=== PATIENT | female | born 1935 | race Caucasian/White ===

== ENCOUNTER 2020-09-11 14:31 | Outpatient (RCR) | payer MEDICARE, SELFPAY ==
[2020-09-11 15:12] VITALS: BP 140/67; PULSE 68; RESP 16; TEMP 36.2
[2020-09-11 17:11] LABS: Absolute Lymphocyte Count 0.79 X10^3/uL (0.83-4.51); Absolute Neutrophil Count 6.2 X10^3/uL (2.0-7.7); Basophil# 0.02 X10^3/uL; Basophil% 0.2 % (0-1); Eosinophil# 0.21 X10^3/uL; Eosinophils% 2.5 % (0-5); Hematocrit 34.4 % (37-47); Hemoglobin 11.2 g/dL (12.0-15.0); Lymphocyte # 0.79 X10^3/ul (0.83-4.51); Lymphocyte % 9.5 % (19-41); Mean Corp Hgb Conc 32.6 g/dL (32-36); Mean Corpuscular Hgb 31.3 pg (27.0-32.0); Mean Corpuscular Volume 96.1 fL (81-99); Monocyte# 1.04 X10^3/uL; Monocyte% 12.6 % (0-10); NRBC Flagged by Analyzer 0 % (0-5); Neutrophil # 6.19 X10^3/uL (2.7-7.7); Neutrophil % 74.8 % (47-70); Platelet Count 460 K/mm3 (150-450); RBC Distribution Width CV 15.2 % (11.6-14.6); RBC Distribution Width SD 54.1 fl (35.1-43.9); Red Blood Count 3.58 M/mm3 (4.2-5.4); White Blood Count 8.3 K/mm3 (4.4-11.0)
[2020-09-11 17:28] LABS: Erythrocyte Sedimentation Rate 121 mm/hr (0-30)
--- NOTE | 2020-09-11 18:01 | PN.PCM_ITS ---
History of Present Illness Date of Service: 09/11/20 Chief Complaint: Hematoma of the Left lateral thigh with opening in the skin. Subjective Subjective Gena is an 85 YO female who fell approximately 1 month ago and sustained a fracture if the R proximal humerus. There was no surgery done and she was placed in a sling. she was then transferred to [facility] for PT/OT to return her at or near her prior level of function/independence. She was independent and living by herself prior to the fall. She was discharged from [facility] 1 day ago and she is living with her daughter until the bone is healed and she can return home. She had a large hematoma on the lateral R thigh that apparently was present since the original fall. Apparently she did tell anyone at [facility] about the large bruise/hematoma and is has since broken open and now there is a black hard eschar and a few smaller openings that are covered with slough in about the middle of a large hard hematoma. The area of the hematoma is numb now. She tells me that she had a fever at [facility] prior to NH and thinks it was as high as 100.1. Past medical history is significant for chronic fatigue, generalized muscle weakness, atrial fibrillation, bradycardia, coronary artery disease, nonrheumatic aortic valve stenosis, orthostatic hypotension, chronic kidney disease stage III, vitamin D deficiency, hypertension, left ventricular failure, gout, osteoarthritis, fibromyalgia, chronic anticoagulation with Eliquis and prediabetes. She has refused medication for diabetes because a friend of hers was on pills for diabetes and years later developed problems with her kidneys. She denies any hx of CHF. She sees Dr. Carrington in [place] for Cardiology. Her med list includes both Lasix and HCTZ yet her ankles are very swollen. She told me that this is gout however there is no redness of the skin, no warmth to touch and she only has pain when I I squeeze the ankle and not when the skin is stroked. She has superficial varicosities of both LE's and tells me that she had vein stripping on the R leg many years ago. She denies orthopnea and also denies paroxysmal nocturnal dyspnea. She usually sleeps on 1 pillow. Last night she slept in the recliner. She denies a hx of rheumatic fever and knows that she has a MM. She tells me that her weight went up when she was in the hospital. She normally weighs 191 and in the hospital she weighed 212. It came down to 204 in [facility] but, she has not weighed herself since she was discharged from [facility]. She was not weighed at the wound care center today. She is currently afebrile. Her dtr-in-law Lexii tells me that she had to have 2 blood transfusions recently....possibly secondary to blood loss into the hematoma......she was on Eliquis at the time of the fall. She also had extensive bruising of the RUE. Objective Data Objective Data Vital Signs: Vital Signs Temp Pulse Resp BP 97.2 F L 68 16 140/67 H 09/11/20 15:12 09/11/20 15:12 09/11/20 15:12 09/11/20 15:12 Lab / Micro Data Result Diagrams: 09/11/20 16:29 09/11/20 16:29 Labs: Laboratory Results - last 24 hr 09/11/20 16:29 WBC 8.3 RBC 3.58 L Hgb 11.2 L Hct 34.4 L MCV 96.1 MCH 31.3 MCHC 32.6 RDW Std Deviation 54.1 H RDW Coeff of Mily 15.2 H Plt Count 460 H MPV 9.0 Immature Gran % (Auto) 0.400 Neut % (Auto) 74.8 H Lymph % (Auto) 9.5 L [place] % (Auto) 12.6 H Eos % (Auto) 2.5 Baso % (Auto) 0.2 Absolute Neuts (auto) 6.2 Absolute Lymphs (auto) 0.79 L Nucleated RBC % 0 ESR 121 H Physical Exam Const alert, oriented x3, no apparent distress and well nourished General Appearance: cooperative and well developed HEENT normocephalic Head and Scalp: atraumatic Mouth: dry mucous membranes Neck supple and no JVD Neck Narrative: She has a R carotid bruit vs radiation of the MM on the R. Resp normal respiratory effort, no use of accessory muscles and clear to auscultation bilaterally Resp Narrative: very good air exchange Effort and Inspection: able to speak in complete sentences Cardio no gallops Cardio Narrative: She is in AF and the HR is in the 80's as I am listening to her. It was 68 when the nurse checked her in. 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 It does not radiate into the left axillary area. Heart Sounds: murmur GI non-tender and non-distended Palpation: soft Extremity Extremity Narrative: She has pitting edema of both LE's but, no clubbing and no cyanosis. Peripheral pulses are normal. She has superficial varicosities of both LE's. She denies calf pain. there is a very large hematoma present on the R lateral thigh and there is still bruising present. The area has broken open and she now has a hard black eschar in the center and a few smaller areas of slough that appear as though they are headed to forming eschar. She has numbness over the area of the hematoma but, she has intact sensation on the anterior and medial thigh. There is increased warmth to touch. The RUE is in a sling due to R humeral fracture. Skin Skin Narrative: no rashes Neuro CN's II-XII intact bilaterally Neuro Narrative: no focal neurologic deficits other than the numbness where the hematoma is. Motor Exam: general weakness Psych affect normal Appearance: grossly normal and well kempt Thought Process: normal thought process Thought Content: No suicidality and No homicidality Debridement Note Debridement Note Post-Debridement Measurements and Additional Note: Post-Debridement Measurements/Treatment - Nurse 1 - General Ulcer Assessment Start: 09/11/20 15:12 Freq: Status: Active Protocol: WC.LOWCHRISTINET Activity Type Activity Date Activity User E-Sign Co-Sign Detail Recorded Client Recorded Date Recorded By Document 09/11/20 15:12 [email or web address] [id number] 09/11/20 15:17 EDMUND 09/11/20 15:12 - Today's Visit Information Type of service Initial Visit Arrival Mode Wheelchair Transfer Assistance Manual Patient Identification Verified (Name & Yes ) Patient Requires Transmission-Based No Precautions Safety Precautions NA Vital Signs Temperature (97.8 F-99.1 F) 97.2 F L Temperature Source Temporal Pulse Rate (60-100) 68 Respiratory Rate (12-18) 16 Blood Pressure (90/60-120/80) 140/67 H Blood Pressure Mean (mm Hg) 91 History Since Last Visit- (Skip if this is Patient's initial visit) Have you changed medications since your No last visit? Any new allergies or adverse reactions No Had a fall/change in ADL's that may No increase risk of falls Signs or symptoms of abuse and/or No neglect since last visit Have you been in the hospital since your No last visit? Has dressing in place as prescribed Yes Has compression in place as prescribed N/A Has offloadiing in place as prescribed N/A Experienced any changes in pain level or No management Pain Scale: 0-10 Numeric Is Patient Pain Free? Yes WC - Nurse 1 - General Ulcer Measurement Start: 09/11/20 15:12 Freq: Status: Active Protocol: Activity Type Activity Date Activity User E-Sign Co-Sign Detail Recorded Client Recorded Date Recorded By Document 09/11/20 15:12 PL [id number] 09/11/20 15:17 PL 09/11/20 15:12 Wound Center Nurse 1 #1 Right lat Thigh -Combined with other wound No -Current Size (cm) - Length 4.5 -Current Size (cm) - Width 3.0 -Current Size (cm) - Depth 0.1 -Total Square Cm 13.50 -Date of Last Picture (Recall this 09/11/20 field) -Photo Taken Yes -Epithelialization None Present -Tunneling No -Undermining/Tunneling No -Circular Undermining No -Classification - Thickness Full Thickness without Exposed Support Structure -Exudate Amt Large -Exudate Type Serosanguineous -Wound Margin Thickened -Granulation Amt None Present (0 %) -Slough/Fibrin Yes -Necrosis Amt Large (67-100%) -Necrotic Tissue Type Eschar -Texture (Lou-wound Skin Appearance) No Abnormality -Moisture (Lou-wound Skin Appearance) No Abnormality -Color (Lou-wound Skin Appearance) No Abnormality -Temperature (Lou-wound Skin No Abnormality Appearance) (Pt Warm) -Tenderness on Palpation (Lou-wound No Skin Appearance) -Ulcer Cleansing Rinsed/ Irrigated with Saline -Anesthetic Used 5% Lidocaine Gel WC - Nurse 2 - General Ulcer CM Notes Start: 09/11/20 15:12 Freq: Status: Active Protocol: Activity Type Activity Date Activity User E-Sign Co-Sign Detail Recorded Client Recorded Date Recorded By Document 09/11/20 15:25 MW [id number] 09/11/20 15:43 MW 09/11/20 15:25 Wound Center Nurse 2 -Time 15:29 -Correct Patient Yes -Correct Side, Site, Position Yes -Correct Procedure Yes -Procedure Performed No -Post Debridement (cm) - Length 4.5 -Post Debridement (cm) - Width 3.0 -Post Debridement (cm) - Depth 0.1 -Total Square (Post) (cm) 13.50 -Tunneling No -Undermining/Tunneling No -Circular Undermining No -Wound/Ulcer Outcome Not Healed -Ulcer Cleansing Rinsed/ Irrigated with Saline -Foul Odor after Cleansing No -Bioengineered Tissue No -Bleeding Controlled with NA -Offloading No -Treatment Response Procedure Tolerated Well Pain Scale: 0-10 Numeric Is Patient Pain Free? Yes WC - Nurse 3 - General Ulcer D/C NN Start: 09/11/20 15:12 Freq: Status: Active Protocol: Activity Type Activity Date Activity User E-Sign Co-Sign Detail Recorded Client Recorded Date Recorded By Document 09/11/20 16:14 ML [id number] 09/11/20 16:16 ML 09/11/20 16:14 Wound Care Nurse 3 #1 Right lat Thigh -Ulcer Cleansing Rinsed/ Irrigated with Saline -Other Dressing foam dressing, stocking Left -Other bilateral marilin wraps No debridement was completed: No debridement was completed today Assessment/Plan Assessment/Plan (1) Traumatic hematoma: CODE(S): T14.8XXA - Other injury of unspecified body region, initial encounter (2) Humerus surgical neck fracture: CODE(S): S42.213A - Unspecified displaced fracture of surgical neck of unspecified humerus, initial encounter for closed fracture (3) PAF (paroxysmal atrial fibrillation): CODE(S): I48.0 - Paroxysmal atrial fibrillation (4) Chronic anticoagulation: CODE(S): Z79.01 - intermediate manager (current) use of anticoagulants (5) HTN (hypertension): CODE(S): I10 - Essential (primary) hypertension (6) Glucose intolerance: CODE(S): E74.39 - Other disorders of intestinal carbohydrate absorption (7) CAD (coronary artery disease): CODE(S): I25.10 - Atherosclerotic heart disease of [place] coronary artery without angina pectoris (8) Chronic renal failure, stage 3 (moderate): CODE(S): N18.30 - Chronic kidney disease, stage 3 unspecified (9) Nonrheumatic aortic (valve) stenosis: CODE(S): I35.0 - Nonrheumatic aortic (valve) stenosis (10) Venous insufficiency of both lower extremities: CODE(S): I87.2 - Venous insufficiency (chronic) (peripheral) PLAN: 1. She was scheduled for an appt with Dr. Oh tomorrow after she was seen by uN today while in [facility]. She will need to have the hematoma evacuated. 2. CBC with diff, CMP, BNP, ESR and CRP - will stop at the lab after leaving here today. 3. Told to hold the Eliquis until she sees Dr. Oh as he may be able to schedule surgery this week. 4. Keep her legs elevated. 5. I told he I do not think she has gout in her ankles but I suspect the swelling is due to venous insufficiency. She also has a hx of left ventricular failure and so she could have diastolic CHF. She is on both Lasix and HCTZ? 6. Obtain record from her laboratory tester.
[2020-09-11 18:09] LABS: BNP,B-Type NATRIURETIC PEPTIDE 30.1 pg/mL (0-100)
[2020-09-11 18:10] LABS: ALB/GLOB Ratio 0.7 RATIO (0.9-2.4); AST(SGOT) 28 U/L (15-37); Alanine Aminotransfer ALT/SGPT 18 U/L (13-56); Albumin, Serum 3.1 g/dL (3.2-5.0); Alkaline Phosphatase 146 U/L (45-117); Anion Gap 7 (5-15); BUN 24 mg/dL (7-18); BUN/Creat Ratio 25.1 RATIO (10-20); Calcium,Total 9.4 mg/dL (8.5-10.1); Chloride 98 mmol/L (98-107); Creatinine, Serum 0.96 mg/dL (0.55-1.02); EST Glomerular Filtration Rate 59 mL/min (>60); Est Glom Filt Rate - Afr Amer 72 mL/min (>60); Globulin 4.7 g/dL (2.2-4.2); Glucose 126 mg/dL (74-106); Potassium 2.8 mmol/L (3.5-5.1); Protein, Total 7.8 g/dL (6.4-8.2); Sodium Level 134 mmol/L (136-145)
== END 2020-10-06 23:59 ==
LOC: WC 14:31
PROVIDERS: PCP Family Medicine; Visit Provider Internal Medicine
DX: S71.101S Unspecified open wound, right thigh, sequela (principal); S70.11XS Contusion of right thigh, sequela; W19.XXXS Unspecified fall, sequela; I13.0 Hypertensive heart and chronic kidney disease with heart failure and stage 1 through stage 4 chronic kidney disease, or unspecified chronic kidney disease; N18.30 Chronic kidney disease, stage 3 unspecified; I48.0 Paroxysmal atrial fibrillation; I35.0 Nonrheumatic aortic (valve) stenosis; I25.10 Atherosclerotic heart disease of native coronary artery without angina pectoris; I87.2 Venous insufficiency (chronic) (peripheral); R73.03 Prediabetes; R53.82 Chronic fatigue, unspecified; M19.90 Unspecified osteoarthritis, unspecified site; M10.9 Gout, unspecified; M79.7 Fibromyalgia; E55.9 Vitamin D deficiency, unspecified; Z79.01 Long term (current) use of anticoagulants; Z79.899 Other long term (current) drug therapy
CPT/HCPCS: 36415; 80053; 83880; 85025; 85652; 86140; 99203; G0463

== ENCOUNTER 2020-09-11 19:55 | Inpatient (IN) | payer MEDICARE, SELFPAY ==
[2020-09-11 19:38] VITALS: BP 138/50; PULSE 68; RESP 16; TEMP 36.7; O2SAT 98
--- NOTE | 2020-09-11 20:01 | HP.PCM_ITS ---
Documented by User: DELIO Lehman 09/11/20 20:21 HPI - General General Date of Admission: 09/11/20 HPI Narrative ABIGAIL MARTINS, is a 85 F who presents from the wound center for a large hematoma to right thigh. Patient reports that she had been receiving care for a wound to her right thigh but she recently has had increased bleeding and swelling in this area. Patient is on Eliquis chronically for paroxysmal A. fib and aortic valve stenosis. Patient states that she is not in any pain currently but that the area is tender to touch. Patient denies fever, chills, shortness of breath, chest pain, cough, nausea, vomiting. [facility] Medical History (Updated 09/11/20 @ 20:17 by Estefania Forbes) Anemia Atrial fibrillation Chronic renal failure, stage 3 (moderate) Fibromyalgia History of skin cancer Hypertension Nonrheumatic aortic (valve) stenosis Osteoarthritis Venous insufficiency of both lower extremities Vitamin D deficiency Allergy/AdvReac Type Severity Reaction Status Date / Time No Known Allergies Allergy Verified 09/11/20 15:33 Surgical History (Updated 09/11/20 @ 20:25 by Estefania Forbes) History of hemiarthroplasty of right hip Hx of appendectomy Hx of cardiac catheterization Hx of hysterectomy Social History Smoking Status: Never smoker ROS Constitutional Constitutional: Denies anorexia, chills, fatigue, fever(s) or weakness Cardiovascular Cardiovascular: Reports edema and palpitations; Denies chest pain Respiratory/Chest Respiratory/Chest: Denies cough, shortness of breath at rest or shortness of breath with exertion Gastrointestinal Gastrointestinal: Denies abdominal pain, constipation, diarrhea, nausea or vomiting Genitourinary Genitourinary: Denies dysuria Musculoskeletal Musculoskeletal: Reports extremity pain; Denies back pain, joint pain or joint stiffness Integumentary Integumentary: Denies dry skin Neurologic Neurologic: Denies abnormal gait, abnormal speech, confusion or dizziness Psychiatric Psychiatric: Denies anxiety or depression Endocrine Endocrinology: Denies change in body appearance Hematologic/Lymphatic Hematologic/Lymphatic: Reports easy bleeding and easy bruising Vital Signs Vital Signs Vital Signs: 09/11/20 19:38 Temperature 98.1 F Temperature Source Oral Pulse Rate 68 Respiratory Rate 16 Blood Pressure 138/50 H Blood Pressure Mean 79 Blood Pressure Source Monitor Blood Pressure Position Semi-Fowlers Blood Pressure Location Left Arm Pulse Ox 98 Oxygen Delivery Method Room Air Physical Exam Const alert and oriented x3 General Appearance: cooperative HEENT normocephalic and head/scalp atraumatic Eyes conjunctivae normal and no scleral icterus Neck supple and no JVD General: trachea midline Lymph Lymphatic: no lymphadenopathy noted Resp normal respiratory effort, normal air movement and clear to auscultation bilaterally Cardio regular rate, regular rhythm, S1 normal heart sound and S2 normal heart sound GI normal to inspection, nondistended, normoactive bowel sounds, soft to palpation and non-tender Extremity normal capillary refill and no clubbing, cyanosis or edema General Extremity: no tenderness to palpation of joints or extremities Skin Wounds: wounds noted bed other eschar , drainage bloody and surrounding erythema Neuro no focal motor deficits and no sensory deficits noted Speech: speech normal Motor Exam: strength 5/5 throughout and general weakness Psych thought process normal, cooperative and affect normal Appearance: appropriate Results Lab / Micro Data Result Diagrams: 09/11/20 20:10 09/11/20 20:10 Assessment & Plan Assessment/Plan (1) Traumatic hematoma: PLAN: 1. Traumatic hematoma -Admit to [facility] -Consult Dr. Oh for surgical consultation -Wound nurse consulted -N.p.o. at midnight pending surgical evaluation 2. Hyponatremia -Likely secondary to use of diuretics despite patient being on potassium replacement chronically -Potassium chloride 60 mEq p.o. x1 ordered in addition to patient home dose. -CMP ordered for a.m., trend potassium 3. Paroxysmal A. fib -Hold Eliquis at this time due to large hematoma and pending surgery -We will obtain EKG for baseline 4. Hypertension -Continue home medication regimen of Lasix and hydrochlorothiazide. -Monitor patient intake and output 5. Venous insufficiency -Continue Yohan wraps to bilateral lower extremities to help with edema DVT prophylaxis-SCDs, no pharmacological prophylaxis indicated due to hematoma formation This patient was seen by DELIO Lehman under the supervision of Dr. Le. Documented by User: Dr. Niko Le MD 09/11/20 20:57 HPI - General General Date of Admission: 09/11/20 [facility] Medical History (Updated 09/11/20 @ 20:17 by Estefania Forbes) Anemia Atrial fibrillation Chronic renal failure, stage 3 (moderate) Fibromyalgia History of skin cancer Hypertension Nonrheumatic aortic (valve) stenosis Osteoarthritis Venous insufficiency of both lower extremities Vitamin D deficiency Allergy/AdvReac Type Severity Reaction Status Date / Time No Known Allergies Allergy Verified 09/11/20 15:33 Surgical History (Updated 09/11/20 @ 20:25 by Estefania Forbes) History of hemiarthroplasty of right hip Hx of appendectomy Hx of cardiac catheterization Hx of hysterectomy Social History Smoking Status: Never smoker Results Lab / Micro Data Result Diagrams: 09/11/20 20:10 09/11/20 20:10 Charges/Coding Addendum Addendum: Patient is an 85-year-old female with a significant history of paroxysmal A. fib who was sent to the hospital from the wound care center counts include 234 beds at the [facility] of enlarged hematoma at the lateral side of her right hip. Of note patient had a fall and developed traumatic right humerus surgical neck fracture that required a sling. At the time of the fall she did not notice that she also developed hematoma of the right hip until recently. Following the fall she was sent to a [facility] for [facility]. Patient was discharged from the [facility] the day before this presentation. About a week ago while at the [facility] she had chills and fever. She has had decreased appetite for the last 3 days. Physical exam: General: Well-nourished, well-developed. Head: Normocephalic, atraumatic, no tenderness Eyes: PERRLA, EOMI ENT, no trauma, moist mucous membranes, no rhinorrhea Neck: Full range of motion. CVS: Regular rate and rhythm Respiratory no acute distress, clear to auscultation bilaterally, chest wall nontender, no wheezing Abdomen: Soft, nontender, nondistended, normal bowel sounds, no masses : Deferred Extremities: Right arm in sling. Bilateral lower extremity in Yohan wrap. Ulcer with eschar at the right hip; and with surrounding swelling Neuro: Alert, oriented, cranial nerves II through XII grossly intact. Traumatic hematoma of lateral side of right hip. Review of labs obtained on the same day of presentation showed elevated ESR and CRP. She denies any fever or chills at this time. Examination of wound did not show any gross infection. We will trend ESR and CRP. Hold Eliquis. Last time she took Eliquis was in a.m. of 09/11/2020. N.p.o. after midnight and Dr. Oh, plastic surgery consult. Visit Charges Inpatient E&M: 00093 Init Hosp L3
--- NOTE | 2020-09-11 20:07 | EKG12_ITS ---
Test Reason : PRE-OP Blood Pressure : / mmHG Vent. Rate : 071 BPM Atrial Rate : 071 BPM P-R Int : 166 ms QRS Dur : 164 ms QT Int : 546 ms P-R-T Axes : 073 -21 022 degrees QTc Int : 593 ms Sinus rhythm with Premature atrial complexes Right bundle branch block Abnormal ECG No previous ECGs available Confirmed by MARIA EUGENIA HAYNES, DANUTA ([id number]), scientific editor KENIA VILLANUEVA ([id number]) on 09/18/2020 7:49:35 AM Referred By: LEANNA Confirmed By:DANUTA DEL CID MD
[2020-09-11 20:23] VITALS: BMI 39.5
[2020-09-11 20:27] LABS: Absolute Lymphocyte Count 0.68 X10^3/uL (0.83-4.51); Absolute Neutrophil Count 5.4 X10^3/uL (2.0-7.7); Basophil# 0.05 X10^3/uL; Basophil% 0.7 % (0-1); Eosinophil# 0.22 X10^3/uL; Hematocrit 32.6 % (37-47); Hemoglobin 10.7 g/dL (12.0-15.0); Lymphocyte # 0.68 X10^3/ul (0.83-4.51); Lymphocyte % 9.2 % (19-41); Mean Corp Hgb Conc 32.8 g/dL (32-36); Mean Corpuscular Hgb 31.4 pg (27.0-32.0); Mean Corpuscular Volume 95.6 fL (81-99); Mean Platelet Vol. 8.8 fl (6.2-12.0); Monocyte# 1.02 X10^3/uL; Monocyte% 13.8 % (0-10); NRBC Flagged by Analyzer 0 % (0-5); Neutrophil # 5.37 X10^3/uL (2.7-7.7); Neutrophil % 72.9 % (47-70); Platelet Count 413 K/mm3 (150-450); RBC Distribution Width CV 15.1 % (11.6-14.6); RBC Distribution Width SD 52.9 fl (35.1-43.9); Red Blood Count 3.41 M/mm3 (4.2-5.4); White Blood Count 7.4 K/mm3 (4.4-11.0)
[2020-09-11 20:53] VITALS: O2SAT 95
[2020-09-11 21:11] LABS: ALB/GLOB Ratio 0.6 RATIO (0.9-2.4); AST(SGOT) 28 U/L (15-37); Alanine Aminotransfer ALT/SGPT 17 U/L (13-56); Albumin, Serum 2.9 g/dL (3.2-5.0); Alkaline Phosphatase 148 U/L (45-117); Anion Gap 10 (5-15); BUN 26 mg/dL (7-18); BUN/Creat Ratio 24.1 RATIO (10-20); Calcium,Total 9.3 mg/dL (8.5-10.1); Chloride 99 mmol/L (98-107); Creatinine, Serum 1.08 mg/dL (0.55-1.02); EST Glomerular Filtration Rate 51 mL/min (>60); Est Glom Filt Rate - Afr Amer 62 mL/min (>60); Estimated Creatinine Clearance 28.35 ml/min; Globulin 4.6 g/dL (2.2-4.2); Glucose 167 mg/dL (74-106); Potassium 2.7 mmol/L (3.5-5.1); Protein, Total 7.5 g/dL (6.4-8.2); Sodium Level 136 mmol/L (136-145)
[2020-09-11] MEDS: Potassium Chloride Oral Tablet 20 MEQ 60 MEQ PO (21:22)
--- NOTE | 2020-09-11 21:30 | NURSING ---
family called in to say that they will bring the pt's med list in thu
[2020-09-11] MEDS: 0.9% Saline Lock 10 ML Syringe IV (22:19)
[2020-09-12 02:17] VITALS: BP 158/55; PULSE 67; RESP 16; TEMP 36.9; O2SAT 96
[2020-09-12] MEDS: Nystatin Powder 15gm Bottle 1 APPLIC TOPICAL ×4 (02:17→22:58)
[2020-09-12 06:09] LABS: Absolute Neutrophil Count 4.3 X10^3/uL (2.0-7.7); Basophil# 0.05 X10^3/uL; Basophil% 0.8 % (0-1); Eosinophil# 0.33 X10^3/uL; Eosinophils% 5.2 % (0-5); Hematocrit 31.4 % (37-47); Hemoglobin 10.1 g/dL (12.0-15.0); Mean Corp Hgb Conc 32.2 g/dL (32-36); Mean Corpuscular Volume 96.3 fL (81-99); Monocyte# 0.93 X10^3/uL; Monocyte% 14.6 % (0-10); NRBC Flagged by Analyzer 0 % (0-5); Neutrophil # 4.33 X10^3/uL (2.7-7.7); Neutrophil % 67.8 % (47-70); Platelet Count 399 K/mm3 (150-450); RBC Distribution Width CV 15.2 % (11.6-14.6); RBC Distribution Width SD 54.4 fl (35.1-43.9); Red Blood Count 3.26 M/mm3 (4.2-5.4); White Blood Count 6.4 K/mm3 (4.4-11.0)
[2020-09-12 06:24] LABS: International Normalized Ratio 1.6; Prothrombin Time (Protime)PT. 17.9 SECONDS (11.7-14.9)
[2020-09-12 06:25] LABS: Partial Thromboplast Time 48.3 Seconds (24.1-36.2)
[2020-09-12 06:31] LABS: Anion Gap 9 (5-15); BUN 23 mg/dL (7-18); BUN/Creat Ratio 30.5 RATIO (10-20); Chloride 101 mmol/L (98-107); Creatinine, Serum 0.75 mg/dL (0.55-1.02); EST Glomerular Filtration Rate 78 mL/min (>60); Est Glom Filt Rate - Afr Amer 94 mL/min (>60); Estimated Creatinine Clearance 30.62 ml/min; Glucose 131 mg/dL (74-106); Potassium 3.1 mmol/L (3.5-5.1); Sodium Level 138 mmol/L (136-145)
[2020-09-12 07:37] VITALS: O2SAT 95
[2020-09-12 08:11] VITALS: BP 176/56; PULSE 68; RESP 18; TEMP 36.9; O2SAT 96
[2020-09-12] MEDS: Potassium Chloride Oral Tablet 20 MEQ 40 MEQ PO ×2 (10:13→11:51)
[2020-09-12] MEDS: Famotidine 20 MG Tablet PO ×2 (10:13→22:59)
--- NOTE | 2020-09-12 10:36 | PN.HOSP_ITS ---
Documented by User: Becky Bah NP, TALENT ACQUISITION SPECIALIST-C 09/12/20 10:50 Subjective Subjective Patient seen and examined. Denies pain. Complains of dry mouth with associated sore throat due to n.p.o. status. Denies other symptoms or complaints. Denies fever, chills. Objective Data Objective Data Vital Signs: Vital Signs Temp Pulse Resp BP Pulse Ox 98.4 F 68 18 176/56 H 96 09/12/20 08:11 09/12/20 08:11 09/12/20 08:11 09/12/20 08:11 09/12/20 08:11 Oxygen Delivery Method Room Air Weight: 202 lb 6.4 oz Body Mass Index (BMI) 39.5 Intake & Output: Intake and Output for Last 24 Hours 09/10/20 09/11/20 09/12/20 23:59 23:59 23:59 Intake Total 500 / 500 Output Total 500 / 500 Balance 500 / 500 -500 / -500 Lab / Micro Data Result Diagrams: 09/12/20 05:30 09/12/20 05:30 Labs: Laboratory Results - last 24 hr 09/11/20 09/11/20 09/12/20 20:10 20:10 05:30 WBC 7.4 6.4 RBC 3.41 L 3.26 L Hgb 10.7 L 10.1 L Hct 32.6 L 31.4 L MCV 95.6 96.3 MCH 31.4 31.0 MCHC 32.8 32.2 RDW Std Deviation 52.9 H 54.4 H RDW Coeff of Mily 15.1 H 15.2 H Plt Count 413 399 MPV 8.8 9.0 Immature Gran % (Auto) 0.400 0.600 Neut % (Auto) 72.9 H 67.8 Lymph % (Auto) 9.2 L 11.0 L [place] % (Auto) 13.8 H 14.6 H Eos % (Auto) 3.0 5.2 H Baso % (Auto) 0.7 0.8 Absolute Neuts (auto) 5.4 4.3 Absolute Lymphs (auto) 0.68 L 0.70 L Nucleated RBC % 0 0 PT INR APTT Sodium 136 Potassium 2.7 L* Chloride 99 Carbon Dioxide 27.0 Anion Gap 10 BUN 26 H Creatinine 1.08 H Estim Creat Clear Calc 28.35 Est GFR (MDRD) Af Amer 62 Est GFR (MDRD) Non-Af 51 L BUN/Creatinine Ratio 24.1 H Glucose 167 H Calcium 9.3 Total Bilirubin 1.10 H AST 28 ALT 17 Alkaline Phosphatase 148 H Total Protein 7.5 Albumin 2.9 L Globulin 4.6 H Albumin/Globulin Ratio 0.6 L 09/12/20 09/12/20 05:30 05:30 WBC RBC Hgb Hct MCV MCH MCHC RDW Std Deviation RDW Coeff of Mily Plt Count MPV Immature Gran % (Auto) Neut % (Auto) Lymph % (Auto) George % (Auto) Eos % (Auto) Baso % (Auto) Absolute Neuts (auto) Absolute Lymphs (auto) Nucleated RBC % PT 17.9 H INR 1.6 APTT 48.3 H Sodium 138 Potassium 3.1 L Chloride 101 Carbon Dioxide 28.0 Anion Gap 9 BUN 23 H Creatinine 0.75 Estim Creat Clear Calc 30.62 Est GFR (MDRD) Af Amer 94 Est GFR (MDRD) Non-Af 78 BUN/Creatinine Ratio 30.5 H Glucose 131 H Calcium 9.0 Total Bilirubin AST ALT Alkaline Phosphatase Total Protein Albumin Globulin Albumin/Globulin Ratio Physical Exam Const alert, oriented x3 and no apparent distress Orientation / Consciousness: awake, oriented to person, oriented to place and oriented to time HEENT normocephalic and moist oral mucous membranes Eyes PERRL, EOMs intact bilaterally and conjunctivae normal Neck no lymphadenopathy Resp normal respiratory effort and clear to auscultation bilaterally Cardio regular rate, regular rhythm and no murmurs Peripheral Pulses: pulses 2+ throughout GI normal to inspection, nondistended, normoactive bowel sounds, non-tender and non-distended Extremity normal to inspection Extremity Narrative: Right arm in sling. Skin no rashes or lesions noted Skin Narrative: Right hip/thigh area large hematoma, dressing intact Lesions: no lesions Rashes: no rashes Trauma: no lacerations or abrasions Neuro CN's II-XII intact bilaterally, no focal motor deficits, no sensory deficits noted and deep tendon reflexes 2+ bilaterally Psych mental status grossly normal and affect normal Assessment & Plan Assessment/Plan (1) Traumatic hematoma: PLAN: 1. Traumatic right thigh/hip hematoma-Eliquis on hold. Dr. Oh, plastic surgery on consult. Trend CBC. Wound RN consult. 2. Recent traumatic right humerus neck fracture-in sling. PT/OT. Follow-up with Ortho. 3. Hypokalemia-replaced per protocol. 4. Hypertension-stable, continue current regimen. 5. Paroxysmal atrial fibrillation-Eliquis on hold. Not on rate control regimen 6. CAD-on aspirin, statin, Ranexa, valsartan. DVT prophylaxis-SCDs This patient was seen by DELIO Santacruz under the supervision of Dr. Collette sheffield. Documented by User: Dr. Alison Lutz MD 09/12/20 13:47 Objective Data Lab / Micro Data Result Diagrams: 09/12/20 05:30 09/12/20 05:30 Charges/Coding Addendum Addendum: Patient seen by Becky KEBEDE under my supervision Patient seen and examined. She was admitted with complaint of right thigh swelling and is being managed for hematoma due to Eliquis. She has no complaints this morning. Pain is well controlled. Review of systems otherwise negative. She has remained hemodynamically stable. O/E: Const alert, oriented x3 and no apparent distress Orientation / Consciousness: awake, oriented to person, oriented to place and oriented to time HEENT normocephalic and moist oral mucous membranes Eyes PERRL, EOMs intact bilaterally and conjunctivae normal Neck no lymphadenopathy Resp normal respiratory effort and clear to auscultation bilaterally Cardio regular rate, regular rhythm and no murmurs Peripheral Pulses: pulses 2+ throughout GI normal to inspection, nondistended, normoactive bowel sounds, non-tender and non-distended Extremity normal to inspection Extremity Narrative: Right arm in sling. Skin no rashes or lesions noted Skin Narrative: Right hip/thigh area large hematoma, mildly tender to palptation, dressing intact Lesions: no lesions Rashes: no rashes Trauma: no lacerations or abrasions Neuro CN's II-XII intact bilaterally, no focal motor deficits, no sensory deficits noted and deep tendon reflexes 2+ bilaterally Psych mental status grossly normal and affect normal Patient is being managed for traumatic hematoma of right thigh due to mechnical fall and being on eliquis. Plastic surgery consulted, await rec's. PT/OT on board. Fall precautions. Right upper extremity in sling on account of humeral fracture for mechanical fall. Eliquis on hold. SCDs for DVT prophylaxis. Patient's postassium is also low, and that is being replaced also. Rest as per Becky Bah TALENT ACQUISITION SPECIALIST-C under my supervision Visit Charges Inpatient E&M: 75760 Subs Hosp L3
--- NOTE | 2020-09-12 11:20 | CASEMGMT ---
N CM Assessment: Face to Face with pt for initial transition planning/care coordination assessment. RN CM introduced self and role at [facility], pt voices understanding and consents to assessment. Pt is A/O x4 and answers all questions appropriately at this time. Pt sitting up in chair in no distress with sling on right arm. Care providers, pharmacy, and demographics verified/updated. Admitting Dx: hematoma PCP:Efrain Specialists: Pt sees Inna Carrington RESIDENTIAL SPECIALIST for cardiology and the wound center for her hematoma Preferred Pharmacy: [facility] Insurance: [facility] Prescription Benefit: yes LW/HPOA: Pt states her granddtr is her DPOA and she has a LW. She is aware that it is not on file at [facility] and she may bring to scan into her chart. LNOK: Sabine Brar, granddtr; Lexii Edmondson, dil; Kenan Francefransiscajennifer, son Living Arrangements: Pt lives in a single story house with no steps to enter with her granddtr and her family as well as her great grandson. Pt states she has a lift chair in the home for basement steps. Pt reports being I in ADL's prior to this incident but now needs assistance d/t her shoulder fx. Pt denies concerns at home. Transportation: Pt used to drive prior to this incident but does not now. She states her DIL and granddtr transport her to medical appts. Denies concerns with transportation. DME/HHC/SNF: Pt has a straight cane, three prong cane, quad cane, w/c and BSC. Pt states she currently has HHC but she just was dc'd from [facility] on Thursday. She does not know the name of the agency. She states her dil will be here shortly and will bring in the folder from the agency. Pt also reports being in a rehab in [place] prior. Pt states no concerns with going home at time of dc. She states that she is unsure at this time who will complete the dressing changes, but they will figure this out. Pt does not feel she will need a SNF at this time. Pt states no further concerns/needs. CM to follow. Advised pt to ask CM if any further question/concerns/needs arise, voices understanding. Pt Goal: Home with resumption of care of HHC. Plan: Home with resumption of care.
[2020-09-12] MEDS: amLODIPine 10 MG Tablet PO (11:50)
[2020-09-12] MEDS: Losartan Potassium 25 MG Tablet PO (11:51)
[2020-09-12] MEDS: Furosemide 40 MG Tablet PO (11:51)
[2020-09-12] MEDS: Ranolazine 500 MG Tablet PO ×2 (12:49→22:59)
--- NOTE | 2020-09-12 12:56 | CON.PCM_ITS ---
Assessment & Plan Assessment/Plan (1) Traumatic hematoma of right hip: (2) Skin necrosis: (3) Acute right hip pain: (4) Fall from motorized mobility scooter: (5) History of right hip replacement: PLAN: Patient has large traumatic hematoma right hip/proximal lateral thigh that is firm to palpation. The pressure from the hematoma is causing some overlying skin necrosis. It has been present for a month so there is increased risk of infection. Will start Ancef in preparation for surgery. It is too large to absorb on its own before getting infected. Also the overlying necrotic skin will need to be excised and debrided. An infection from the hematoma puts the underlying hip replacement at risk for becoming infected. Will order a CT to look for blood surrounding the implant. Surgery will be done under general anesthesia. Will schedule in the next 1-2 days. At the time of surgery, will send tissue to Pathology for analysis and to Microbiology for culture. A positive culture will necessitate antibiotic therapy. Will leave the wound open and proceed with postoperative wound care with the VAC. After discharge, will followup at the Wound Center. If there is a plateau in the healing process, can proceed with delayed closure with skin grafting. Anticipate increased metabolic demands from the surgery. Will check a Prealbumin and encourage nutritional supplementation with protein to help the h ealing process. Patient was informed of the risks and complications of the procedure including alternatives to surgery. These were discussed with the patient personally. Patient voices understanding and wishes to proceed. We discussed the current risks associated with COVID-19. While it is understood that there is a community spread of COVID-19, the risk of jennifer COVID-19 while at [facility] ([facility]) is very low; however, the risk cannot be completely mitigated because of the community spread of the disease. We discussed in detail the risk of exposure to and/or potential harm posed by the COVID-19 virus with having a surgery/procedure at this time versus the risk of delaying the surgery/procedure. It is not possible to know either the risk of delaying the surgery or procedure or chance of getting an infection with perfect accuracy, but a joint decision was made to proceed at this time with the scheduled surgery/procedure as indicated on the consent form. Patient was notified that we will need to comply with any screening or testing [facility] wishes to perform or that surgery may be delayed for any positive results. HPI Consult Data Date of Consult: 09/12/20 PCP / Referring MD: Dr. Herson Zuniga DO Attending Care Provider: Dr. Alison Lutz MD TOP DISTRIBUTION EXECUTIVE: Dr. Oh. HPI Narrative Reason for Consultation: Traumatic hematoma right hip/proximal lateral thigh. HPI Narrative: ABIGAIL MARTINS, is a 85 F who was admitted from the wound center yesterday for a large hematoma to her right hip/proximal lateral thigh. She sustained the hematoma a month ago when she feel off a motorized scooter at a c urb at [facility]. Patient is on Eliquis chronically for paroxysmal A. fib and aortic valve stenosis. She went to [facility]. X-ray showed no hip fracture. She sustained a right shoulder fracture at that time. She has a history of right hip replacement. Patient states that she is not in any pain currently but there is pain when the hematoma is touched. Patient denies fever. On admission her WBC was 8.3. Her ESR was 121. The CRP was 159.00. The Hgb was 11.2. Today it is 10.1. I was asked to evaluate this patient for surgical options for treatment. [facility] Medical History Acute right hip pain Anemia Atrial fibrillation Chronic renal failure, stage 3 (moderate) Fall from motorized mobility scooter Fibromyalgia History of skin cancer Hypertension Nonrheumatic aortic (valve) stenosis Osteoarthritis Skin necrosis Traumatic hematoma of right hip Venous insufficiency of both lower extremities Vitamin D deficiency Home Medications acetaminophen [Tylenol Extra Strength] 1,000 mg PO TID 09/12/20 [History Last Taken Unknown] amlodipine 10 mg PO DAILY 09/12/20 [History Last Taken Unknown] apixaban [Eliquis] 5 mg PO BID 09/12/20 [History Last Taken Unknown] aspirin 81 mg PO DAILY 09/12/20 [History Last Taken Unknown] atorvastatin 40 mg PO DAILY 09/12/20 [History Last Taken Unknown] cholecalciferol (vitamin D3) [Vitamin D3] 50 mcg PO DAILY 09/12/20 [History Last Taken Unknown] diphenhydramine HCl [Benadryl] 25 mg PO DAILY 09/12/20 [History Last Taken Unknown] furosemide 40 mg PO DAILY 09/12/20 [History Last Taken Unknown] hydrochlorothiazide 25 mg PO DAILY 09/12/20 [History Last Taken Unknown] oxycodone 5 mg PO Q6H PRN 09/12/20 [History Last Taken Unknown] pantoprazole [Protonix] 40 mg PO DAILY 09/12/20 [History Last Taken Unknown] potassium chloride 10 meq PO BID 09/12/20 [History Last Taken Unknown] ranolazine [Ranexa] 500 mg PO BID 09/12/20 [History Last Taken Unknown] valsartan 80 mg PO DAILY 09/12/20 [History Last Taken Unknown] Allergy/AdvReac Type Severity Reaction Status Date / Time No Known Allergies Allergy Verified 09/11/20 15:33 Surgical History History of hemiarthroplasty of right hip Hx of appendectomy Hx of cardiac catheterization Hx of hysterectomy Social History Smoking Status: Never smoker ROS ROS Narrative REVIEW OF SYSTEMS General - Denies fever, fatigue, and weight loss. Eyes - Denies cataracts and glaucoma. ENT - Denies nasal congestion and sore throat. Endocrine - Denies excessive thirst and urination. Skin - Denies skin cancer. Has large hematoma right hip/proximal lateral thigh with overlying skin necrosis. Musculoskeletal - Denies joint stiffness, weakness of muscles and joints, back pain, and arthritis. Has right hip pain. Has history of right hip replacement. Neuro - Denies headaches. Cardiovascular - Denies chest pain, fatigue, and shortness of breath with exertion. Has atrial fibrillation. Psych - Denies anxiety and depression. Respiratory - Denies chronic cough and shortness of breath. Gastrointestinal - Denies nausea, vomiting, diarrhea, and constipation. Hematologic - Has abnormal bruising as she is on Eliquis. Genitourinary - Denies hematuria and urinary frequency. Physical Exam Narrative PHYSICAL EXAMINATION General - Alert and Oriented HEENT - PERRL. EOMI. Throat is clear. Neck - Supple and nontender. No cervical adenopathy. Lungs - Clear to auscultation. Heart - Regular rate and rhythm. Abdomen - Soft and nondistended. Extremities - FROM. No axillary adenopathy. Radial pulses are palpable. No inguinal adenopathy. Dorsalis pedis pulses are palpable. On the right hip/proximal lateral thigh is a traumatic hematoma. It is firm to palpation and is tender to palpation. Bruising present. There is some necrotic skin present. No redness or purulent drainage seen. Measures 15 cm. Neuro - CN II-XII grossly intact. Psych - Normal mood and affect. Lab / Micro Data Result Diagrams: 09/12/20 05:30 09/12/20 05:30 Labs: Laboratory Results - last 24 hr 09/11/20 09/11/20 09/12/20 20:10 20:10 05:30 WBC 7.4 6.4 RBC 3.41 L 3.26 L Hgb 10.7 L 10.1 L Hct 32.6 L 31.4 L MCV 95.6 96.3 MCH 31.4 31.0 MCHC 32.8 32.2 RDW Std Deviation 52.9 H 54.4 H RDW Coeff of Mily 15.1 H 15.2 H Plt Count 413 399 MPV 8.8 9.0 Immature Gran % (Auto) 0.400 0.600 Neut % (Auto) 72.9 H 67.8 Lymph % (Auto) 9.2 L 11.0 L [place] % (Auto) 13.8 H 14.6 H Eos % (Auto) 3.0 5.2 H Baso % (Auto) 0.7 0.8 Absolute Neuts (auto) 5.4 4.3 Absolute Lymphs (auto) 0.68 L 0.70 L Nucleated RBC % 0 0 PT INR APTT Sodium 136 Potassium 2.7 L* Chloride 99 Carbon Dioxide 27.0 Anion Gap 10 BUN 26 H Creatinine 1.08 H Estim Creat Clear Calc 28.35 Est GFR (MDRD) Af Amer 62 Est GFR (MDRD) Non-Af 51 L BUN/Creatinine Ratio 24.1 H Glucose 167 H Calcium 9.3 Total Bilirubin 1.10 H AST 28 ALT 17 Alkaline Phosphatase 148 H Total Protein 7.5 Albumin 2.9 L Globulin 4.6 H Albumin/Globulin Ratio 0.6 L 09/12/20 09/12/20 05:30 05:30 WBC RBC Hgb Hct MCV MCH MCHC RDW Std Deviation RDW Coeff of Mily Plt Count MPV Immature Gran % (Auto) Neut % (Auto) Lymph % (Auto) [place] % (Auto) Eos % (Auto) Baso % (Auto) Absolute Neuts (auto) Absolute Lymphs (auto) Nucleated RBC % PT 17.9 H INR 1.6 APTT 48.3 H Sodium 138 Potassium 3.1 L Chloride 101 Carbon Dioxide 28.0 Anion Gap 9 BUN 23 H Creatinine 0.75 Estim Creat Clear Calc 30.62 Est GFR (MDRD) Af Amer 94 Est GFR (MDRD) Non-Af 78 BUN/Creatinine Ratio 30.5 H Glucose 131 H Calcium 9.0 Total Bilirubin AST ALT Alkaline Phosphatase Total Protein Albumin Globulin Albumin/Globulin Ratio Procedure Criteria Type of Procedure Procedure Type: Elective Elective Risks - COVID COVID Risk Discussion: The surgeon/proceduralist and patient have discussed in detail the risk of exposure to and/or potential harm posed by the COVID-19 virus with having a surgery/procedure at this time versus the risk of delaying the surgery/procedure. It is not possible to know either the risk of delaying the surgery or procedure or chance of getting an infection with perfect accuracy, but a joint decision was made between the patient and the surgeon/proceduralist to proceed at this time with the scheduled surgery/procedure as indicated on the consent form. Charges/Coding Visit Charges Inpatient E&M: 22935 Init Hosp L2 (ICD-10 - S70.01xA, I96, M25.551, V00.831A, Z96.641)
[2020-09-12 14:16] VITALS: BP 160/56; PULSE 68; RESP 18; TEMP 36.9; O2SAT 98
--- NOTE | 2020-09-12 16:25 | CT_ITS ---
STUDY: CT RIGHT FEMUR WITHOUT CONTRAST REASON FOR EXAM: Female, 85 years old. Traumatic hematoma right hip/proximal lateral thig RADIATION DOSAGE (If Supplied By Facility): CTDIvol = ( 21.70 ) mGy, DLP = ( 1434.71 ) mGycm TECHNIQUE: Transaxial CT imaging of the femur was performed. Sagittal and coronal images were reconstructed. Individualized dose optimization techniques were used for this CT. COMPARISON: None. FINDINGS: There is a right hip prosthesis in place. Degenerative changes at the knee with joint space narrowing. Chondrocalcinosis of the menisci. There is a lateral hematoma at the proximal right thigh measuring 16.8 x 8.4 x 10 cm. Probable hyperdense right renal cysts. Degenerative lower lumbar changes. CT/Extremity Lower without Contra IMPRESSION: Right proximal thigh lateral hematoma. Electronically Signed: Edmundo Gamez DO at 17:53 EDT Tel [phone], Service support ,
--- NOTE | 2020-09-12 16:47 | CHAPLAIN ---
Type of Pastoral Visit _x__ Initial Visit ___ Follow-up Visit ___ On-call Visit ___ General Patient Visit ___ Spiritual Assessment ___ Family Conference ___ Bereavement ___ Rapid Response ___ Code Blue ___ Other (describe below) Pastoral Care Referral From _x__ Patient ___ Family ___ Nurse ___ Physician ___ Musical String Maker ___ Aircraft Cylinder Mechanic ___ Other (describe below) Sacrament/Intervention _x__ Active listening ___ Anointing ___ Anabaptism ___ Bereavement ___ Communion ___ Tyesha exploration ___ _x__ Life review _x__ Prayer ___ Reconciliation ___ Sacrament of Sick _x__ Supportive presence ___ Wedding ___ Other (describe below) Pastoral Comments patient is very talkative and gives lots of life review which includes tragedies and heartaches; patient has family for help but also identifies that prayer is a source of her resilience; prayer given along with time and attention
[2020-09-12] MEDS: Acetaminophen 325 MG Tablet 650 MG PO (22:59)
[2020-09-12] MEDS: Atorvastatin Calcium 40 MG Tablet PO (22:59)
[2020-09-12 23:04] VITALS: BP 167/66; PULSE 63; RESP 18; TEMP 36.6; O2SAT 95
[2020-09-12 23:13] VITALS: BP 167/66; PULSE 63
[2020-09-12] MEDS: hydrALAZINE 20 MG/ML Vial 10 MG IV (23:13)
[2020-09-12] MEDS: 0.9% Saline Lock 10 ML Syringe IV (23:14)
[2020-09-13 03:58] VITALS: BP 173/74; PULSE 58; RESP 18; TEMP 36.3; O2SAT 97
[2020-09-13 04:05] VITALS: BP 173/74; PULSE 58
[2020-09-13] MEDS: 0.9% Saline Lock 10 ML Syringe IV ×2 (04:05→21:40)
[2020-09-13] MEDS: hydrALAZINE 20 MG/ML Vial 10 MG IV (04:05)
[2020-09-13 05:29] VITALS: BP 150/64
[2020-09-13] MEDS: Nystatin Powder 15gm Bottle 1 APPLIC TOPICAL ×3 (05:31→20:48)
[2020-09-13 06:46] LABS: Absolute Lymphocyte Count 0.88 X10^3/uL (0.83-4.51); Absolute Neutrophil Count 4.4 X10^3/uL (2.0-7.7); Basophil# 0.04 X10^3/uL; Basophil% 0.6 % (0-1); Eosinophil# 0.35 X10^3/uL; Eosinophils% 5.3 % (0-5); Hematocrit 33.6 % (37-47); Hemoglobin 10.7 g/dL (12.0-15.0); Lymphocyte # 0.88 X10^3/ul (0.83-4.51); Lymphocyte % 13.3 % (19-41); Mean Corp Hgb Conc 31.8 g/dL (32-36); Mean Corpuscular Hgb 31.1 pg (27.0-32.0); Mean Corpuscular Volume 97.7 fL (81-99); Monocyte# 0.97 X10^3/uL; Monocyte% 14.6 % (0-10); NRBC Flagged by Analyzer 0 % (0-5); Neutrophil # 4.36 X10^3/uL (2.7-7.7); Neutrophil % 65.6 % (47-70); Platelet Count 393 K/mm3 (150-450); RBC Distribution Width CV 15.6 % (11.6-14.6); RBC Distribution Width SD 55.6 fl (35.1-43.9); Red Blood Count 3.44 M/mm3 (4.2-5.4); White Blood Count 6.6 K/mm3 (4.4-11.0)
[2020-09-13 07:13] LABS: Anion Gap 6 (5-15); BUN 21 mg/dL (7-18); BUN/Creat Ratio 29.1 RATIO (10-20); Calcium,Total 9.2 mg/dL (8.5-10.1); Chloride 103 mmol/L (98-107); Creatinine, Serum 0.72 mg/dL (0.55-1.02); EST Glomerular Filtration Rate 82 mL/min (>60); Est Glom Filt Rate - Afr Amer 99 mL/min (>60); Estimated Creatinine Clearance 30.62 ml/min; Glucose 145 mg/dL (74-106); Potassium 3.4 mmol/L (3.5-5.1); Sodium Level 135 mmol/L (136-145)
[2020-09-13 07:43] VITALS: BP 159/59; PULSE 58; RESP 18; TEMP 37.1; O2SAT 96
[2020-09-13] MEDS: Famotidine 20 MG Tablet PO (07:49)
[2020-09-13] MEDS: Potassium Chloride Oral Tablet 20 MEQ 40 MEQ PO (07:49)
[2020-09-13] MEDS: Ranolazine 500 MG Tablet PO ×2 (07:50→20:48)
[2020-09-13] MEDS: amLODIPine 10 MG Tablet PO (07:50)
[2020-09-13] MEDS: Furosemide 40 MG Tablet PO (07:50)
[2020-09-13] MEDS: Losartan Potassium 25 MG Tablet PO (07:50)
[2020-09-13] MEDS: Acetaminophen 325 MG Tablet 650 MG PO ×3 (07:52→20:48)
--- NOTE | 2020-09-13 09:37 | PN.HOSP_ITS ---
Subjective Subjective Patient seen and examined today. She has no complaints and pain is well controlled. Review of systems is otherwise negative. She has remained hemodynamically stable. Plastic surgery is on board, and plan is for surgery in 1-2 days. Objective Data Objective Data Vital Signs: Vital Signs Temp Pulse Resp BP Pulse Ox 98.8 F 58 L 18 159/59 H 96 09/13/20 07:43 09/13/20 07:43 09/13/20 07:43 09/13/20 07:43 09/13/20 07:43 Oxygen Delivery Method Room Air Weight: 202 lb 6.396 oz Body Mass Index (BMI) 39.5 Intake & Output: Intake and Output for Last 24 Hours 09/11/20 09/12/20 09/13/20 23:59 23:59 23:59 Intake Total 500 / 500 650 / 650 Output Total 500 / 500 650 / 650 Balance 500 / 500 -500 / 100 0 / 0 Lab / Micro Data Result Diagrams: 09/13/20 06:05 09/13/20 06:05 Labs: Laboratory Results - last 24 hr 09/13/20 09/13/20 09/13/20 06:05 06:05 09:04 WBC 6.6 RBC 3.44 L Hgb 10.7 L Hct 33.6 L MCV 97.7 MCH 31.1 MCHC 31.8 L RDW Std Deviation 55.6 H RDW Coeff of Mily 15.6 H Plt Count 393 MPV 9.0 Immature Gran % (Auto) 0.600 Neut % (Auto) 65.6 Lymph % (Auto) 13.3 L [place] % (Auto) 14.6 H Eos % (Auto) 5.3 H Baso % (Auto) 0.6 Absolute Neuts (auto) 4.4 Absolute Lymphs (auto) 0.88 Nucleated RBC % 0 Sodium 135 L Potassium 3.4 L Chloride 103 Carbon Dioxide 26.0 Anion Gap 6 BUN 21 H Creatinine 0.72 Estim Creat Clear Calc 30.62 Est GFR (MDRD) Af Amer 99 Est GFR (MDRD) Non-Af 82 BUN/Creatinine Ratio 29.1 H Glucose 145 H Calcium 9.2 Crossmatch See Detail Radiography Diagnostic Testing: Radiology Impression Lower Extremity CT 09/12/20 16:25 IMPRESSION: Right proximal thigh lateral hematoma. Electronically Signed: Edmundo Gamez DO at 17:53 EDT Tel [phone], Service support , Physical Exam Const alert, oriented x3 and no apparent distress General Appearance: cooperative Orientation / Consciousness: awake, oriented to person, oriented to place and oriented to time HEENT normocephalic, head/scalp atraumatic and moist oral mucous membranes Head and Scalp: normocephalic Eyes PERRL, EOMs intact bilaterally, conjunctivae normal and no scleral icterus Neck no lymphadenopathy, supple and no JVD General: trachea midline Lymph Lymphatic: no lymphadenopathy noted Resp normal respiratory effort, normal air movement and clear to auscultation bilaterally Cardio regular rate, regular rhythm, S1 normal heart sound, S2 normal heart sound and no murmurs Peripheral Pulses: pulses 2+ throughout GI normal to inspection, nondistended, normoactive bowel sounds, soft to palpation, non-tender and non-distended Extremity normal to inspection, normal capillary refill and no clubbing, cyanosis or edema Extremity Narrative: Right arm in sling. General Extremity: no tenderness to palpation of joints or extremities Skin no rashes or lesions noted Skin Narrative: Right hip/thigh area large hematoma, dressing intact Lesions: no lesions Rashes: no rashes Trauma: no lacerations or abrasions Wounds: wounds noted bed other eschar , drainage bloody and surrounding erythema Neuro oriented x3, CN's II-XII intact bilaterally, no focal motor deficits, no sensory deficits noted and deep tendon reflexes 2+ bilaterally Sensorium / Orientation: awake and alert Speech: speech normal Motor Exam: strength 5/5 throughout and general weakness Psych mental status grossly normal, thought process normal, cooperative and affect normal Appearance: appropriate Assessment & Plan Assessment/Plan (1) Traumatic hematoma: PLAN: #. Traumatic right thigh hematoma due to mechanical fall * plastic surgery on board. Eliquis on hold. * for surgery in 1-2 days * PT/OT on board. Fall precautions. #Hyponatremia * is better today. Na is 135. * #Hypokalemia: K is 3.4 today. Will replace and trend. #Paroxysmal afib: eliquis on hold. currently rate controlled. Hs is 58 today. #Hypertension: on amlodipine and HCTZ #DVT prophylaxis: eliquis on hold due to hematoma. SCDs Charges/Coding Visit Charges Inpatient E&M: 73544 Subs Hosp L2
[2020-09-13 09:49] LABS: International Normalized Ratio 1.3
--- NOTE | 2020-09-13 10:21 | CASEMGMT ---
Social Work Note DEJAN updated that pt would consider RU or [facility] at discharge. DEJAN placed a call to Ester with RU/TCU, TCU will have a bed available Thursday/Thursday/Thursday and TCU does take pt's insurance. DEJAN informed Ester that this worker needs to confirm when pt is having surgery. DEJAN in to speak with pt. DEJAN introduced self and role at [facility]. DEJAN spoke with pt about SNF. Pt states she really wants to go home but states she realizes that may not be a good choice for her at this time. Patient was provided a list of SNF providers including quality and resource use data and consistent with the patient?s preferred geographic region, medical needs, and insurance network. SW spoke with pt about TCU and how they do have a bed available and accept pt's insurance. Pt confirms preferred provider is [facility]. DEJAN explained pre-cert process. Pt states understanding. DEJAN updated that pt is having surgery tomorrow. DEJAN placed a call to Ester with TCU and updated her on surgery for tomorrow. Ester states she will start pt's pre-cert today and will just send updates to insurance after pt has surgery. Plan: TCU pending pre-cert Estefania Zamudio BUGGY LOADER, FIELD COLLECTOR
[2020-09-13 13:50] VITALS: BP 148/58; PULSE 60; RESP 18; TEMP 36.6; O2SAT 97
[2020-09-13 20:00] VITALS: BP 153/65; PULSE 67; RESP 16; TEMP 37.1; O2SAT 96
[2020-09-13] MEDS: Atorvastatin Calcium 40 MG Tablet PO (20:48)
[2020-09-13] MEDS: 0.9% Normal Saline 1,000 ML 75 ML IV (21:39)
[2020-09-14] VITALS (12 sets, daily range): BP systolic 143–173; BP diastolic 61–92; PULSE 58–92; RESP 16–18; TEMP 36.6–37.4; O2SAT 92–98; BMI 39.5
[2020-09-14] MEDS: hydrALAZINE 20 MG/ML Vial 10 MG IV (02:41)
[2020-09-14] MEDS: 0.9% Saline Lock 10 ML Syringe IV (02:42)
[2020-09-14] MEDS: Nystatin Powder 15gm Bottle 1 APPLIC TOPICAL ×3 (05:41→21:07)
[2020-09-14 06:56] LABS: Absolute Lymphocyte Count 0.76 X10^3/uL (0.83-4.51); Absolute Neutrophil Count 4.6 X10^3/uL (2.0-7.7); Basophil# 0.04 X10^3/uL; Basophil% 0.6 % (0-1); Eosinophil# 0.29 X10^3/uL; Eosinophils% 4.4 % (0-5); Hematocrit 32.7 % (37-47); Hemoglobin 10.6 g/dL (12.0-15.0); Lymphocyte # 0.76 X10^3/ul (0.83-4.51); Lymphocyte % 11.6 % (19-41); Mean Corp Hgb Conc 32.4 g/dL (32-36); Mean Corpuscular Hgb 31.4 pg (27.0-32.0); Mean Corpuscular Volume 96.7 fL (81-99); Mean Platelet Vol. 8.9 fl (6.2-12.0); Monocyte# 0.89 X10^3/uL; Monocyte% 13.6 % (0-10); NRBC Flagged by Analyzer 0 % (0-5); Neutrophil # 4.55 X10^3/uL (2.7-7.7); Neutrophil % 69.3 % (47-70); Platelet Count 393 K/mm3 (150-450); RBC Distribution Width CV 15.1 % (11.6-14.6); RBC Distribution Width SD 54.2 fl (35.1-43.9); Red Blood Count 3.38 M/mm3 (4.2-5.4); White Blood Count 6.6 K/mm3 (4.4-11.0)
[2020-09-14 07:10] LABS: International Normalized Ratio 1.3; Prothrombin Time (Protime)PT. 15.5 SECONDS (11.7-14.9)
[2020-09-14 07:30] LABS: Anion Gap 7 (5-15); BUN 18 mg/dL (7-18); BUN/Creat Ratio 28.9 RATIO (10-20); Chloride 104 mmol/L (98-107); Creatinine, Serum 0.62 mg/dL (0.55-1.02); EST Glomerular Filtration Rate 97 mL/min (>60); Est Glom Filt Rate - Afr Amer 118 mL/min (>60); Estimated Creatinine Clearance 30.62 ml/min; Glucose 137 mg/dL (74-106); Potassium 3.6 mmol/L (3.5-5.1); Sodium Level 134 mmol/L (136-145)
--- NOTE | 2020-09-14 07:49 | PN.HOSP_ITS ---
Subjective Subjective Patient seen and examined. She feels well. She denies any pain over the site of the hematoma. Review of systems otherwise negative. She is due for evacuation of the hematoma today. She has remained hemodynamically stable. Objective Data Objective Data Vital Signs: Vital Signs Temp Pulse Resp BP Pulse Ox 98.5 F 69 16 162/88 H 94 09/14/20 02:05 09/14/20 02:41 09/14/20 02:05 09/14/20 02:41 09/14/20 02:05 Oxygen Delivery Method Room Air Weight: 202 lb 6.396 oz Body Mass Index (BMI) 39.5 Intake & Output: Intake and Output for Last 24 Hours 09/12/20 09/13/20 09/14/20 23:59 23:59 23:59 Intake Total 650 / 650 Output Total 500 / 500 650 / 650 300 / 300 Balance -500 / 100 0 / 0 -300 / -300 Lab / Micro Data Result Diagrams: 09/14/20 06:35 09/14/20 06:35 Labs: Laboratory Results - last 24 hr 09/13/20 09/13/20 09/14/20 09:04 09:28 06:35 WBC 6.6 RBC 3.38 L Hgb 10.6 L Hct 32.7 L MCV 96.7 MCH 31.4 MCHC 32.4 RDW Std Deviation 54.2 H RDW Coeff of Mily 15.1 H Plt Count 393 MPV 8.9 Immature Gran % (Auto) 0.500 Neut % (Auto) 69.3 Lymph % (Auto) 11.6 L [place] % (Auto) 13.6 H Eos % (Auto) 4.4 Baso % (Auto) 0.6 Absolute Neuts (auto) 4.6 Absolute Lymphs (auto) 0.76 L Nucleated RBC % 0 PT 15.0 H INR 1.3 Sodium Potassium Chloride Carbon Dioxide Anion Gap BUN Creatinine Estim Creat Clear Calc Est GFR (MDRD) Af Amer Est GFR (MDRD) Non-Af BUN/Creatinine Ratio Glucose Calcium Blood Type B POSITIVE Antibody Screen NEGATIVE Crossmatch See Detail 09/14/20 09/14/20 06:35 06:35 WBC RBC Hgb Hct MCV MCH MCHC RDW Std Deviation RDW Coeff of Mily Plt Count MPV Immature Gran % (Auto) Neut % (Auto) Lymph % (Auto) [place] % (Auto) Eos % (Auto) Baso % (Auto) Absolute Neuts (auto) Absolute Lymphs (auto) Nucleated RBC % PT 15.5 H INR 1.3 Sodium 134 L Potassium 3.6 Chloride 104 Carbon Dioxide 23.0 Anion Gap 7 BUN 18 Creatinine 0.62 Estim Creat Clear Calc 30.62 Est GFR (MDRD) Af Amer 118 Est GFR (MDRD) Non-Af 97 BUN/Creatinine Ratio 28.9 H Glucose 137 H Calcium 9.0 Blood Type Antibody Screen Crossmatch Physical Exam Const alert, oriented x3 and no apparent distress General Appearance: cooperative Orientation / Consciousness: awake, oriented to person, oriented to place and oriented to time Exam Limitations: no limitations HEENT normocephalic, head/scalp atraumatic and moist oral mucous membranes Head and Scalp: normocephalic Eyes PERRL, EOMs intact bilaterally, conjunctivae normal and no scleral icterus Neck no lymphadenopathy, supple and no JVD General: trachea midline Lymph Lymphatic: no lymphadenopathy noted Resp normal respiratory effort, normal air movement and clear to auscultation bilaterally Cardio regular rate, regular rhythm, S1 normal heart sound, S2 normal heart sound and no murmurs Peripheral Pulses: pulses 2+ throughout GI normal to inspection, nondistended, normoactive bowel sounds, soft to palpation, non-tender and non-distended Extremity normal to inspection, normal capillary refill and no clubbing, cyanosis or edema Extremity Narrative: Right arm in sling. General Extremity: no tenderness to palpation of joints or extremities Peripheral Pulses: Yes pulses 2+ throughout Skin no rashes or lesions noted Skin Narrative: Right hip/thigh area large hematoma, dressing intact Lesions: no lesions Rashes: no rashes Trauma: no lacerations or abrasions Wounds: wounds noted bed other eschar , drainage bloody and surrounding erythema Neuro oriented x3, CN's II-XII intact bilaterally, no focal motor deficits, no sensory deficits noted and deep tendon reflexes 2+ bilaterally Sensorium / Orientation: awake and alert Speech: speech normal Motor Exam: strength 5/5 throughout and general weakness Psych mental status grossly normal, thought process normal, cooperative and affect normal Appearance: appropriate Assessment & Plan Assessment/Plan (1) Traumatic hematoma: PLAN: #. Traumatic right thigh hematoma due to mechanical fall * plastic surgery on board. Eliquis on hold. * for surgery today * PT/OT on board. Fall precautions. * typing and crossing done * NSQIP calculator shows 5.5% risk of serious complication, which is below average risk (10.3%) and 0.1% complication for any cardiac complication, which is also below average risk (0.3%). Paitent cleared for surgery with moderate risk. #Hyponatremia * Na is 134 today. Oscar monitor Hypokalemia: resolved. K is 3.4. #Paroxysmal afib: eliquis on hold. currently rate controlled. #Hypertension: on amlodipine and HCTZ #DVT prophylaxis: eliquis on hold due to hematoma. SCDs Charges/Coding Visit Charges Inpatient E&M: 05078 Subs Hosp L2
[2020-09-14] MEDS: 0.9% Normal Saline 1,000 ML 75 ML IV ×2 (10:41→16:20)
[2020-09-14] MEDS: oxyCODONE 5 MG Tablet PO (10:41)
--- NOTE | 2020-09-14 11:44 | CASEMGMT ---
Social Work Note SW received update that [facility] physician is requesting to admit to RU as pt would be appropriate for RU. Pt was previously independent. SW in to speak with pt. Pt has guest present (son and DIL) present at [facility]. Pt gave this worker permission to speak to her in front of her guest. SW spoke with pt about RU vs TCU, pt agreeable to trying RU and states RU is preferred provider. SW explained pre-cert process for RU. Pt and pt's family agreeable to RU. DEJAN placed a call to Ester with TCU/RU and updated her. Ester to resubmit for pre-cert for RU. Plan: RU pending pre-cert Estefania Zamudio ASSISTANT VICE PRESIDENT, CREATIVE WRITING PROFESSOR
--- NOTE | 2020-09-14 12:00 | NURSING ---
Pt transported to surgery via surgery transport crew. Family at bedside aware.
[2020-09-14] MEDS: Lidocaine 1% /Epi 1:100 (50ml) 50 ML VIAL (12:46)
--- NOTE | 2020-09-14 13:05 | TISS_PTH ---
PATIENT: ABIGAIL MARTINS LOC: MS3 U#:[id number] AGE/SX: 85/F ROOM: [id number] RE09/11/[address]: Dr. Kacie Camacho DO : 1935 BED: 1 DIS: 09/18/2020 SPEC #: [id number] RECD: 09/14/20 14:40 STATUS: RICKY ORR #: [id number] JACLYN: 09/14/20 13:[address]: González Oh DEPT: SURGICAL PATHOLOGY RECD BY: Mierya Orosco ENTERED: 09/16/20 17:11 SP TYPE: Tissue Bx ROMEL DR: MD Dr. Herson Segundo DO Dr. Kathryn Lee, DO Tissues: TISSUE SURGICALLY REMOVED Procedures: Surgery Specimen Level IV HEADER OPERATION: Incision, drainage abscess, evacuation hematoma, hip PRE-OP DIAGNOSIS: Traumatic hematoma of right hip; skin necrosis; acute right hip pain TISSUE SUBMITTED: Soft tissue, traumatic hematoma right hip MICROSCOPIC DIAGNOSIS Skin and soft tissue of right hip, excision: Ulceration with associated acute and chronic inflammation and granulation. AM:caren 09/18/2020 MICROSCOPIC DESCRIPTION Slides are reviewed. GROSS DESCRIPTION Received in fixative is one container labeled with the patient's name and designated soft tissue, traumatic hematoma right hip. The specimen consists of multiple irregular fragments of skin with adherent yellow-bboo soft tissue and blood clots that in aggregate measure 24 x 24 x 5 cm. The largest fragment of skin contains a cutaneous ulcerated area measuring 4 x 2.5 x 0.2 cm. Serial sections do not reveal mass lesions. Onion Tier sections are submitted in two cassettes. / AM:caren 09/17/20 TC:2 CPT: 72784
--- NOTE | 2020-09-14 14:07 | CASEMGMT ---
Social Work Note SW placed a call to Ester with [facility], confirms pre-cert for RU has been submitted. Ester states earliest pt can discharge to RU is Thursday pending pre-cert. Ester states for RU, a COVID test is not needed. Green sheet on chart in the event pre-cert is obtained. If pre-cert is obtained, earliest pt can discharge to RU is Thursday. Plan: RU pending pre-cert. Estefania Zamudio APPRAISAL COORDINATOR, WOUND/OSTOMY CLINICAL NURSE SPECIALIST
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
[2020-09-14] MEDS: Ranolazine 500 MG Tablet PO ×2 (16:11→21:07)
[2020-09-14] MEDS: Potassium Chloride Oral Tablet 20 MEQ 40 MEQ PO (16:11)
[2020-09-14] MEDS: Furosemide 40 MG Tablet PO (16:11)
[2020-09-14] MEDS: Famotidine 20 MG Tablet PO (16:11)
[2020-09-14] MEDS: Losartan Potassium 25 MG Tablet PO (16:11)
[2020-09-14] MEDS: amLODIPine 10 MG Tablet PO (16:11)
[2020-09-14] MEDS: Cefazolin 1 GM/50 ML BAG IV (21:06)
[2020-09-14] MEDS: Atorvastatin Calcium 40 MG Tablet PO (21:07)
[2020-09-14] MEDS: Acetaminophen 325 MG Tablet 650 MG PO (21:07)
[2020-09-15] VITALS (7 sets, daily range): BP systolic 135–176; BP diastolic 60–72; PULSE 62–80; RESP 16–18; TEMP 36.9–37.6; O2SAT 95–99
[2020-09-15] MEDS: Nystatin Powder 15gm Bottle 1 APPLIC TOPICAL ×3 (05:20→21:23)
[2020-09-15] MEDS: 0.9% Normal Saline 1,000 ML 75 ML IV ×2 (05:21→19:19)
[2020-09-15] MEDS: Cefazolin 1 GM/50 ML BAG IV ×3 (05:21→21:22)
[2020-09-15 06:55] LABS: Prealbumin 9.8 mg/dL (20.0-40.0)
[2020-09-15] MEDS: Acetaminophen 325 MG Tablet 650 MG PO ×2 (08:27→21:44)
[2020-09-15] MEDS: Potassium Chloride Oral Tablet 20 MEQ 40 MEQ PO (08:27)
[2020-09-15 08:47] LABS: Anion Gap 6 (5-15); BUN 13 mg/dL (7-18); BUN/Creat Ratio 21.1 RATIO (10-20); Calcium,Total 8.7 mg/dL (8.5-10.1); Chloride 106 mmol/L (98-107); Creatinine, Serum 0.62 mg/dL (0.55-1.02); EST Glomerular Filtration Rate 98 mL/min (>60); Est Glom Filt Rate - Afr Amer 119 mL/min (>60); Estimated Creatinine Clearance 30.62 ml/min; Glucose 115 mg/dL (74-106); Potassium 4.3 mmol/L (3.5-5.1); Sodium Level 137 mmol/L (136-145)
[2020-09-15 08:50] LABS: Absolute Lymphocyte Count 0.77 X10^3/uL (0.83-4.51); Absolute Neutrophil Count 4.6 X10^3/uL (2.0-7.7); Basophil# 0.03 X10^3/uL; Basophil% 0.4 % (0-1); Eosinophil# 0.44 X10^3/uL; Eosinophils% 6.4 % (0-5); Hematocrit 30.6 % (37-47); Hemoglobin 9.4 g/dL (12.0-15.0); Lymphocyte # 0.77 X10^3/ul (0.83-4.51); Lymphocyte % 11.1 % (19-41); Mean Corp Hgb Conc 30.7 g/dL (32-36); Mean Corpuscular Hgb 30.7 pg (27.0-32.0); Mean Platelet Vol. 9.2 fl (6.2-12.0); Monocyte# 0.98 X10^3/uL; Monocyte% 14.2 % (0-10); NRBC Flagged by Analyzer 0 % (0-5); Neutrophil # 4.64 X10^3/uL (2.7-7.7); Platelet Count 413 K/mm3 (150-450); RBC Distribution Width CV 15.2 % (11.6-14.6); RBC Distribution Width SD 56.6 fl (35.1-43.9); Red Blood Count 3.06 M/mm3 (4.2-5.4); White Blood Count 6.9 K/mm3 (4.4-11.0)
--- NOTE | 2020-09-15 09:28 | PN.HOSP_ITS ---
Subjective Subjective Patient seen and examined. SHe feels well and has no complaints. She denies any pain, and review of systems is otherwise negative. She had evacuation of the hematoma yesterday, and today is POD 1. Hemoglobin today is 9.4 Objective Data Objective Data Vital Signs: Vital Signs Temp Pulse Resp BP Pulse Ox 98.5 F 64 16 146/64 H 98 09/15/20 07:02 09/15/20 07:02 09/15/20 07:02 09/15/20 07:02 09/15/20 07:02 Oxygen Flow Rate (L/min) 2 Oxygen Delivery Method Nasal Cannula Weight: 202 lb 6.396 oz Body Mass Index (BMI) 39.5 Intake & Output: Intake and Output for Last 24 Hours 09/13/20 09/14/20 09/15/20 23:59 23:59 23:59 Intake Total 650 / 650 2080.00 / 2080.00 633.75 / 633.75 Output Total 650 / 650 300 / 650 600 / 600 Balance 0 / 0 1780.00 / 1430.00 33.75 / 33.75 Lab / Micro Data Result Diagrams: 09/15/20 05:30 09/15/20 05:30 Labs: Laboratory Results - last 24 hr 09/15/20 09/15/20 09/15/20 05:30 05:30 05:30 WBC 6.9 RBC 3.06 L Hgb 9.4 L Hct 30.6 L MCV 100.0 H MCH 30.7 MCHC 30.7 L D RDW Std Deviation 56.6 H RDW Coeff of Mily 15.2 H Plt Count 413 MPV 9.2 Immature Gran % (Auto) 0.900 Neut % (Auto) 67.0 Lymph % (Auto) 11.1 L [place] % (Auto) 14.2 H Eos % (Auto) 6.4 H Baso % (Auto) 0.4 Absolute Neuts (auto) 4.6 Absolute Lymphs (auto) 0.77 L Nucleated RBC % 0 Sodium 137 Potassium 4.3 Chloride 106 Carbon Dioxide 25.0 Anion Gap 6 BUN 13 Creatinine 0.62 Estim Creat Clear Calc 30.62 Est GFR (MDRD) Af Amer 119 Est GFR (MDRD) Non-Af 98 BUN/Creatinine Ratio 21.1 H Glucose 115 H Calcium 8.7 Prealbumin 9.8 L Physical Exam Const alert, oriented x3 and no apparent distress General Appearance: cooperative Orientation / Consciousness: awake, oriented to person, oriented to place and oriented to time Exam Limitations: no limitations HEENT normocephalic, head/scalp atraumatic and moist oral mucous membranes Head and Scalp: normocephalic Eyes PERRL, EOMs intact bilaterally, conjunctivae normal and no scleral icterus Neck no lymphadenopathy, supple and no JVD General: trachea midline Lymph Lymphatic: no lymphadenopathy noted Resp normal respiratory effort, normal air movement and clear to auscultation bilaterally Cardio regular rate, regular rhythm, S1 normal heart sound, S2 normal heart sound and no murmurs Peripheral Pulses: pulses 2+ throughout GI normal to inspection, nondistended, normoactive bowel sounds, soft to palpation, non-tender and non-distended Extremity normal to inspection, normal capillary refill and no clubbing, cyanosis or edema Extremity Narrative: Right arm in sling. General Extremity: no tenderness to palpation of joints or extremities Peripheral Pulses: Yes pulses 2+ throughout Skin no rashes or lesions noted Skin Narrative: Dressing over surgical site on right thigh. Lesions: no lesions Rashes: no rashes Trauma: no lacerations or abrasions Wounds: wounds noted bed other eschar , drainage bloody and surrounding erythema Neuro oriented x3, CN's II-XII intact bilaterally, no focal motor deficits, no sensory deficits noted and deep tendon reflexes 2+ bilaterally Sensorium / Orientation: awake and alert Speech: speech normal Motor Exam: strength 5/5 throughout and general weakness Psych mental status grossly normal, thought process normal, cooperative and affect normal Appearance: appropriate Assessment & Plan Assessment/Plan (1) Traumatic hematoma: PLAN: #. Traumatic right thigh hematoma due to mechanical fall * s/p evacuation of hematoma. Today is POD 1. * eliquis remains on hold * Hb is down to 9.4 from 10.6 * PT/OT on board. fall precautions * * #Hyponatremia * resolved. * Hypokalemia: resolved. #Paroxysmal afib: eliquis on hold. currently rate controlled. #Hypertension: on amlodipine and HCTZ #DVT prophylaxis: eliquis on hold due to hematoma. SCDs Disposition: for DC back to SNF once medically stable Charges/Coding Visit Charges Inpatient E&M: 99407 Subs Hosp L2
[2020-09-15] MEDS: Losartan Potassium 25 MG Tablet PO (10:09)
[2020-09-15] MEDS: Furosemide 40 MG Tablet PO (10:09)
[2020-09-15] MEDS: amLODIPine 10 MG Tablet PO (10:09)
[2020-09-15] MEDS: Famotidine 20 MG Tablet PO (10:09)
[2020-09-15] MEDS: Ranolazine 500 MG Tablet PO ×2 (10:09→21:23)
[2020-09-15] MEDS: oxyCODONE 5 MG Tablet PO (15:23)
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
[2020-09-15] MEDS: Atorvastatin Calcium 40 MG Tablet PO (21:23)
[2020-09-15] MEDS: MELATONIN 3 MG TABLET PO (21:45)
[2020-09-15] MEDS: hydrALAZINE 20 MG/ML Vial 10 MG IV (21:45)
[2020-09-15] MEDS: 0.9% Saline Lock 10 ML Syringe IV (21:45)
[2020-09-16] VITALS (7 sets, daily range): BP systolic 137–157; BP diastolic 51–65; PULSE 52–63; RESP 16–18; TEMP 36.6–37.7; O2SAT 93–98
[2020-09-16] MEDS: Nystatin Powder 15gm Bottle 1 APPLIC TOPICAL ×3 (05:31→21:18)
[2020-09-16] MEDS: Cefazolin 1 GM/50 ML BAG IV ×3 (05:31→21:18)
[2020-09-16] MEDS: Acetaminophen 325 MG Tablet 650 MG PO ×3 (05:31→21:20)
[2020-09-16 06:23] LABS: Absolute Lymphocyte Count 0.95 X10^3/uL (0.83-4.51); Absolute Neutrophil Count 4.4 X10^3/uL (2.0-7.7); Basophil# 0.03 X10^3/uL; Basophil% 0.4 % (0-1); Eosinophil# 0.37 X10^3/uL; Eosinophils% 5.3 % (0-5); Hematocrit 27.6 % (37-47); Hemoglobin 8.6 g/dL (12.0-15.0); Lymphocyte # 0.95 X10^3/ul (0.83-4.51); Lymphocyte % 13.7 % (19-41); Mean Corp Hgb Conc 31.2 g/dL (32-36); Mean Corpuscular Hgb 30.3 pg (27.0-32.0); Mean Corpuscular Volume 97.2 fL (81-99); Mean Platelet Vol. 8.8 fl (6.2-12.0); Monocyte# 1.12 X10^3/uL; Monocyte% 16.1 % (0-10); NRBC Flagged by Analyzer 0 % (0-5); Neutrophil # 4.41 X10^3/uL (2.7-7.7); Neutrophil % 63.6 % (47-70); Platelet Count 354 K/mm3 (150-450); RBC Distribution Width CV 14.7 % (11.6-14.6); RBC Distribution Width SD 52.8 fl (35.1-43.9); Red Blood Count 2.84 M/mm3 (4.2-5.4); White Blood Count 6.9 K/mm3 (4.4-11.0)
[2020-09-16 06:39] LABS: Anion Gap 8 (5-15); BUN 13 mg/dL (7-18); BUN/Creat Ratio 16.8 RATIO (10-20); Calcium,Total 8.3 mg/dL (8.5-10.1); Chloride 103 mmol/L (98-107); Creatinine, Serum 0.77 mg/dL (0.55-1.02); EST Glomerular Filtration Rate 76 mL/min (>60); Est Glom Filt Rate - Afr Amer 91 mL/min (>60); Estimated Creatinine Clearance 30.62 ml/min; Glucose 158 mg/dL (74-106); Potassium 3.8 mmol/L (3.5-5.1); Sodium Level 135 mmol/L (136-145)
[2020-09-16] MEDS: Potassium Chloride Oral Tablet 20 MEQ 40 MEQ PO (08:39)
[2020-09-16] MEDS: 0.9% Saline Lock 10 ML Syringe IV ×3 (09:49→21:19)
[2020-09-16] MEDS: Losartan Potassium 25 MG Tablet PO (09:51)
[2020-09-16] MEDS: Ranolazine 500 MG Tablet PO ×2 (09:51→21:19)
[2020-09-16] MEDS: Famotidine 20 MG Tablet PO (09:51)
[2020-09-16] MEDS: amLODIPine 10 MG Tablet PO (09:51)
[2020-09-16] MEDS: Furosemide 40 MG Tablet PO (09:51)
--- NOTE | 2020-09-16 14:34 | PCM.PN.HOSP ---
Subjective Subjective Patient reports she is feeling well today. Denies any current complaints although she stated when the wound VAC was changed it was quite painful for her. Wound VAC is due to be changed tomorrow and I advised her to premedicate. Objective Data Objective Data Vital Signs: Vital Signs Temp Pulse Resp BP Pulse Ox 97.9 F 57 L 16 137/65 H 98 09/16/20 12:16 09/16/20 12:16 09/16/20 12:16 09/16/20 12:16 09/16/20 12:16 Oxygen Flow Rate (L/min) 2 Oxygen Delivery Method Room Air Weight: 91.807 kg Body Mass Index (BMI) 39.5 Intake & Output: Intake and Output for Last 24 Hours 09/14/20 09/15/20 09/16/20 23:59 23:59 23:59 Intake Total 2080.00 / 2080.00 2482.50 / 2482.50 2036.50 / 2036.50 Output Total 300 / 650 2250 / 2250 1400 / 1400 Balance 1780.00 / 1430.00 232.50 / 232.50 636.50 / 636.50 Lab / Micro Data Result Diagrams: 09/16/20 06:08 09/16/20 06:08 Labs: Laboratory Results - last 24 hr 09/13/20 09/16/20 09/16/20 09:04 06:08 06:08 WBC 6.9 RBC 2.84 L Hgb 8.6 L Hct 27.6 L MCV 97.2 MCH 30.3 MCHC 31.2 L RDW Std Deviation 52.8 H RDW Coeff of Mily 14.7 H Plt Count 354 MPV 8.8 Immature Gran % (Auto) 0.900 Neut % (Auto) 63.6 Lymph % (Auto) 13.7 L [place] % (Auto) 16.1 H Eos % (Auto) 5.3 H Baso % (Auto) 0.4 Absolute Neuts (auto) 4.4 Absolute Lymphs (auto) 0.95 Nucleated RBC % 0 Sodium 135 L Potassium 3.8 Chloride 103 Carbon Dioxide 24.0 Anion Gap 8 BUN 13 Creatinine 0.77 Estim Creat Clear Calc 30.62 Est GFR (MDRD) Af Amer 91 Est GFR (MDRD) Non-Af 76 BUN/Creatinine Ratio 16.8 Glucose 158 H Calcium 8.3 L Crossmatch See Detail Micro: Microbiology 09/14/20 14:34 Tissue - Hip Gram Stain - Final 09/14/20 14:34 Tissue - Hip Wound Culture - Preliminary Staphylococcus aureus Assessment & Plan Assessment/Plan (1) Traumatic hematoma of right hip: (2) Humerus surgical neck fracture: (3) CAD (coronary artery disease): (4) PAF (paroxysmal atrial fibrillation): PLAN: Traumatic right thigh hematoma status post mechanical fall -Hematoma evacuation on 09/14/2020 -Continue to hold Eliquis--> restart when okay with Dr. Oh -VAC change due tomorrow -Wound care is following -Dr. Oh following -PT/OT Right humeral fracture -Conservative management -Continue sling -Nonweightbearing right upper extremity Acute on chronic anemia -Baseline hemoglobin appears to be 10-11 -Hemoglobin 8.6 today with slight downward trend in the last 24 hours -No acute bleeding noted -Repeat CBC in a.m. PAF -Eliquis on hold for above -Restart Eliquis when okay with surgery CAD/HTN/HPL -Continue amlodipine -Continue losartan -Would recommend to discontinue HCTZ at discharge given the fact that patient is on Lasix -Continue atorvastatin -Continue Lasix -Continue Ranexa DVT prophylaxis -SCDs CODE STATUS -Full code Charges/Coding Visit Charges Inpatient E&M: 91572 Subs Hosp L2
[2020-09-16] MEDS: MELATONIN 3 MG TABLET PO (21:19)
[2020-09-16] MEDS: oxyCODONE 5 MG Tablet PO (21:19)
[2020-09-16] MEDS: Atorvastatin Calcium 40 MG Tablet PO (21:19)
[2020-09-17 02:13] VITALS: BP 142/51; PULSE 53; RESP 16; TEMP 36.3; O2SAT 96
[2020-09-17] MEDS: Cefazolin 1 GM/50 ML BAG IV ×3 (05:16→22:02)
[2020-09-17] MEDS: Nystatin Powder 15gm Bottle 1 APPLIC TOPICAL ×3 (05:17→21:24)
[2020-09-17] MEDS: oxyCODONE 5 MG Tablet PO ×2 (05:19→12:08)
[2020-09-17] MEDS: Acetaminophen 325 MG Tablet 650 MG PO ×2 (05:20→16:49)
[2020-09-17 06:07] LABS: Absolute Lymphocyte Count 0.81 X10^3/uL (0.83-4.51); Absolute Neutrophil Count 3.8 X10^3/uL (2.0-7.7); Basophil# 0.04 X10^3/uL; Basophil% 0.6 % (0-1); Eosinophil# 0.49 X10^3/uL; Eosinophils% 7.9 % (0-5); Hematocrit 29.2 % (37-47); Lymphocyte # 0.81 X10^3/ul (0.83-4.51); Mean Corp Hgb Conc 30.8 g/dL (32-36); Mean Corpuscular Hgb 30.2 pg (27.0-32.0); Mean Platelet Vol. 8.8 fl (6.2-12.0); Monocyte% 16.1 % (0-10); NRBC Flagged by Analyzer 0 % (0-5); Neutrophil # 3.82 X10^3/uL (2.7-7.7); Neutrophil % 61.6 % (47-70); Platelet Count 386 K/mm3 (150-450); RBC Distribution Width CV 14.6 % (11.6-14.6); RBC Distribution Width SD 52.5 fl (35.1-43.9); Red Blood Count 2.98 M/mm3 (4.2-5.4); White Blood Count 6.2 K/mm3 (4.4-11.0)
[2020-09-17 06:32] LABS: Anion Gap 6 (5-15); BUN 12 mg/dL (7-18); Calcium,Total 8.8 mg/dL (8.5-10.1); Chloride 103 mmol/L (98-107); EST Glomerular Filtration Rate 101 mL/min (>60); Est Glom Filt Rate - Afr Amer 123 mL/min (>60); Estimated Creatinine Clearance 30.62 ml/min; Glucose 121 mg/dL (74-106); Potassium 3.8 mmol/L (3.5-5.1); Sodium Level 135 mmol/L (136-145)
[2020-09-17 07:35] VITALS: O2SAT 96
[2020-09-17] MEDS: Potassium Chloride Oral Tablet 20 MEQ 40 MEQ PO (07:48)
[2020-09-17 08:13] VITALS: BP 162/77; PULSE 52; RESP 18; TEMP 36.7; O2SAT 96
--- NOTE | 2020-09-17 09:57 | PN.HOSP_ITS ---
Subjective Subjective Patient is an 85-year-old lady with history of paroxysmal A. fib on systemic anticoagulation with Eliquis presented following a fall. Did develop traumatic right thigh hematoma for which evacuation was performed by Dr. Oh on 09/14/2020 with subsequent application of a wound VAC Objective Data Objective Data Vital Signs: Vital Signs Temp Pulse Resp BP Pulse Ox 97.4 F L 53 L 16 142/51 H 96 09/17/20 02:13 09/17/20 02:13 09/17/20 02:13 09/17/20 02:13 09/17/20 07:35 Oxygen Flow Rate (L/min) 2 Oxygen Delivery Method Room Air Weight: 91.807 kg Body Mass Index (BMI) 39.5 Intake & Output: Intake and Output for Last 24 Hours 09/15/20 09/16/20 09/17/20 23:59 23:59 23:59 Intake Total 2482.50 / 2482.50 2507.25 / 2507.25 72.25 / 72.25 Output Total 2250 / 2250 2049 / 2049 400 / 400 Balance 232.50 / 232.50 457.25 / 457.25 -327.75 / -327.75 Lab / Micro Data Result Diagrams: 09/17/20 05:44 09/17/20 05:44 Labs: Laboratory Results - last 24 hr 09/17/20 05:44: WBC 6.2, RBC 2.98 L, Hgb 9.0 L, Hct 29.2 L, MCV 98.0, MCH 30.2, MCHC 30.8 L, RDW Std Deviation 52.5 H, RDW Coeff of Mily 14.6, Plt Count 386, MPV 8.8, Immature Gran % (Auto) 0.800, Neut % (Auto) 61.6, Lymph % (Auto) 13.0 L, [place] % (Auto) 16.1 H, Eos % (Auto) 7.9 H, Baso % (Auto) 0.6, Absolute Neuts (auto) 3.8, Absolute Lymphs (auto) 0.81 L, Nucleated RBC % 0 09/17/20 05:44: Sodium 135 L, Potassium 3.8, Chloride 103, Carbon Dioxide 26.0, Anion Gap 6, BUN 12, Creatinine 0.60, Estim Creat Clear Calc 30.62, Est GFR (MDRD) Af Amer 123, Est GFR (MDRD) Non-Af 101, BUN/Creatinine Ratio 20.0, Glucose 121 H, Calcium 8.8 Micro: Microbiology 09/14/20 14:34 Tissue - Hip Gram Stain - Final 09/14/20 14:34 Tissue - Hip Wound Culture - Final Staphylococcus aureus 09/14/20 14:34 Tissue - Hip Anaerobic Culture - Preliminary No growth in 48 hours. Physical Exam Narrative GENERAL: cooperative HEENT: Atraumatic; EYES; Anicteric, Normal Conjunctiva NECK; supple, normal thyroid, RESPIRATORY: Diminished to auscultation CARDIOVASCULAR: Regular S1 S2, GI: soft, normoactive bowel sounds, : No Renal angle tenderness; EXTREMITIES: Wound VAC on the lateral aspect of the right thigh MUSCULOSKELETAL: no muscle waisting NEURO: Awake; no lateralizing signs. SKIN: No Rash PSYCH; Flat affect Assessment & Plan Assessment/Plan (1) Traumatic hematoma of right hip: (2) Humerus surgical neck fracture: (3) CAD (coronary artery disease): (4) PAF (paroxysmal atrial fibrillation): PLAN: Patient is an 85-year-old lady with history of paroxysmal A. fib on systemic anticoagulation with Eliquis presented following a fall. Did develop traumatic right thigh hematoma for which evacuation was performed by Dr. Oh on 09/14/2020 with subsequent application of a wound VAC 1. Traumatic right thigh hematoma ?Following a fall. Evacuation was performed by Dr. Oh on 09/14/2020 with subsequent application of a wound VAC 2. Right humeral fracture ?Patient being managed conservatively currently in a sling 3. Anemia - Secondary to chronic disorder as well as acute blood loss anemia following patient's trauma. Monitoring H&H and transfuse if patient becomes symptomatic or hemoglobin falls below 7 4. Paroxysmal A. fib ?Rate controlled on Eliquis which is currently being held 5. Hypertension - Blood pressure controlled, home medications continued with dose adjustment as needed 6. Dyslipidemia -Patient is on statin therapy, continued at home dose 7. Coronary artery disease ?On recommended medications in addition to Ranexa 8. DVT prophylaxis -SCDs Charges/Coding Visit Charges Inpatient E&M: 62706 Subs Hosp L2
[2020-09-17] MEDS: Losartan Potassium 25 MG Tablet PO (10:23)
[2020-09-17] MEDS: Famotidine 20 MG Tablet PO (10:23)
[2020-09-17] MEDS: amLODIPine 10 MG Tablet PO (10:23)
[2020-09-17] MEDS: Ranolazine 500 MG Tablet PO ×2 (10:23→21:24)
[2020-09-17] MEDS: Furosemide 40 MG Tablet PO (10:24)
--- NOTE | 2020-09-17 10:43 | CASEMGMT ---
Addendum entered by Estefania Zamudio 09/17/20 14:55: SW received call from Ester with [facility] stating pre-cert is still pending. Green sheet on chart in the event pre-cert is obtained. Original Note: Social Work Note SW received call from Ester with [facility] stating pre-cert is still pending. Plan: [facility] pending pre-cert Estefania Zamudio SEAT JOINER, CORNICE UPHOLSTERER
[2020-09-17] MEDS: 0.9% Saline Lock 10 ML Syringe IV ×2 (14:39→22:03)
[2020-09-17 15:29] VITALS: BP 160/66; PULSE 62; RESP 18; TEMP 37.2; O2SAT 98
[2020-09-17] MEDS: Atorvastatin Calcium 40 MG Tablet PO (21:24)
[2020-09-17 21:29] VITALS: BP 150/61; PULSE 55; RESP 16; TEMP 37.2; O2SAT 98
[2020-09-18 03:29] VITALS: BP 159/60; PULSE 59; RESP 16; TEMP 37.3; O2SAT 97
[2020-09-18] MEDS: Acetaminophen 325 MG Tablet 650 MG PO (03:44)
[2020-09-18] MEDS: Cefazolin 1 GM/50 ML BAG IV ×2 (05:44→13:48)
[2020-09-18] MEDS: Nystatin Powder 15gm Bottle 1 APPLIC TOPICAL ×2 (05:45→13:48)
[2020-09-18 06:34] LABS: Absolute Lymphocyte Count 0.64 X10^3/uL (0.83-4.51); Absolute Neutrophil Count 3.1 X10^3/uL (2.0-7.7); Basophil# 0.04 X10^3/uL; Basophil% 0.8 % (0-1); Eosinophil# 0.48 X10^3/uL; Eosinophils% 9.2 % (0-5); Hematocrit 27.3 % (37-47); Hemoglobin 8.7 g/dL (12.0-15.0); Lymphocyte # 0.64 X10^3/ul (0.83-4.51); Lymphocyte % 12.3 % (19-41); Mean Corp Hgb Conc 31.9 g/dL (32-36); Mean Corpuscular Hgb 30.9 pg (27.0-32.0); Mean Corpuscular Volume 96.8 fL (81-99); Monocyte# 0.86 X10^3/uL; Monocyte% 16.5 % (0-10); NRBC Flagged by Analyzer 0 % (0-5); Neutrophil # 3.14 X10^3/uL (2.7-7.7); Neutrophil % 60.4 % (47-70); Platelet Count 401 K/mm3 (150-450); RBC Distribution Width CV 14.5 % (11.6-14.6); RBC Distribution Width SD 51.8 fl (35.1-43.9); Red Blood Count 2.82 M/mm3 (4.2-5.4); White Blood Count 5.2 K/mm3 (4.4-11.0)
[2020-09-18 07:02] LABS: Anion Gap 6 (5-15); BUN 11 mg/dL (7-18); BUN/Creat Ratio 17.5 RATIO (10-20); Calcium,Total 8.9 mg/dL (8.5-10.1); Chloride 105 mmol/L (98-107); Creatinine, Serum 0.63 mg/dL (0.55-1.02); EST Glomerular Filtration Rate 96 mL/min (>60); Est Glom Filt Rate - Afr Amer 117 mL/min (>60); Estimated Creatinine Clearance 30.62 ml/min; Glucose 131 mg/dL (74-106); Potassium 3.9 mmol/L (3.5-5.1); Sodium Level 138 mmol/L (136-145)
--- NOTE | 2020-09-18 07:07 | PCM.PN.HOSP ---
Subjective Subjective Patient seen still complains of discomfort in the right shoulder. Awaiting transfer to a intermediate facility Objective Data Objective Data Vital Signs: Vital Signs Temp Pulse Resp BP Pulse Ox 99.1 F 59 L 16 159/60 H 97 09/18/20 03:29 09/18/20 03:29 09/18/20 03:29 09/18/20 03:29 09/18/20 03:29 Oxygen Flow Rate (L/min) 2 Oxygen Delivery Method Room Air Weight: 91.807 kg Body Mass Index (BMI) 39.5 Intake & Output: Intake and Output for Last 24 Hours 09/16/20 09/17/20 09/18/20 23:59 23:59 23:59 Intake Total 2507.25 / 2507.25 1772.25 / 1772.25 100 / 100 Output Total 2049 / 2049 400 / 1000 1300 / 1300 Balance 457.25 / 457.25 1372.25 / 772.25 -1200 / -1200 Lab / Micro Data Result Diagrams: 09/18/20 06:18 09/18/20 06:18 Labs: Laboratory Results - last 24 hr 09/18/20 06:18: WBC 5.2, RBC 2.82 L, Hgb 8.7 L, Hct 27.3 L, MCV 96.8, MCH 30.9, MCHC 31.9 L, RDW Std Deviation 51.8 H, RDW Coeff of Mily 14.5, Plt Count 401, MPV 9.0, Immature Gran % (Auto) 0.800, Neut % (Auto) 60.4, Lymph % (Auto) 12.3 L, [place] % (Auto) 16.5 H, Eos % (Auto) 9.2 H, Baso % (Auto) 0.8, Absolute Neuts (auto) 3.1, Absolute Lymphs (auto) 0.64 L, Nucleated RBC % 0 09/18/20 06:18: Sodium 138, Potassium 3.9, Chloride 105, Carbon Dioxide 27.0, Anion Gap 6, BUN 11, Creatinine 0.63, Estim Creat Clear Calc 30.62, Est GFR (MDRD) Af Amer 117, Est GFR (MDRD) Non-Af 96, BUN/Creatinine Ratio 17.5, Glucose 131 H, Calcium 8.9 Micro: Microbiology 09/14/20 14:34 Tissue - Hip Gram Stain - Final 09/14/20 14:34 Tissue - Hip Wound Culture - Final Staphylococcus aureus 09/14/20 14:34 Tissue - Hip Anaerobic Culture - Preliminary No growth in 48 hours. Physical Exam Narrative GENERAL: cooperative HEENT: Atraumatic; EYES; Anicteric, Normal Conjunctiva NECK; supple, normal thyroid, RESPIRATORY: Diminished to auscultation CARDIOVASCULAR: Regular S1 S2, GI: soft, normoactive bowel sounds, : No Renal angle tenderness; EXTREMITIES: Wound VAC on the lateral aspect of the right thigh MUSCULOSKELETAL: no muscle waisting NEURO: Awake; no lateralizing signs. SKIN: No Rash PSYCH; Flat affect Assessment & Plan Assessment/Plan (1) Traumatic hematoma of right hip: (2) Humerus surgical neck fracture: (3) CAD (coronary artery disease): (4) PAF (paroxysmal atrial fibrillation): PLAN: Patient is an 85-year-old lady with history of paroxysmal A. fib on systemic anticoagulation with Eliquis presented following a fall. Did develop traumatic right thigh hematoma for which evacuation was performed by Dr. Oh on 09/14/2020 with subsequent application of a wound VAC 1. Traumatic right thigh hematoma ?Following a fall. Evacuation was performed by Dr. Oh on 09/14/2020 with subsequent application of a wound VAC 2. Right humeral fracture ?Patient being managed conservatively currently in a sling 3. Anemia - Secondary to chronic disorder as well as acute blood loss anemia following patient's trauma. Monitoring H&H and transfuse if patient becomes symptomatic or hemoglobin falls below 7 4. Paroxysmal A. fib ?Rate controlled on Eliquis which is currently being held 5. Hypertension - Blood pressure controlled, home medications continued with dose adjustment as needed 6. Dyslipidemia -Patient is on statin therapy, continued at home dose 7. Coronary artery disease ?On recommended medications in addition to Ranexa 8. DVT prophylaxis -SCDs 9. Physical deconditioning - Requested for PT OT eval and social services assistant to assist with discharge planning Charges/Coding Visit Charges Inpatient E&M: 34990 Subs Hosp L2
[2020-09-18] MEDS: Potassium Chloride Oral Tablet 20 MEQ 40 MEQ PO (07:45)
--- NOTE | 2020-09-18 09:26 | CASEMGMT ---
Addendum entered by Estefania Zamudio 09/18/20 09:33: DEJAN updated pt. Original Note: Social Work Note SW received message from Ester with [facility] stating medical record consultant for [facility] would like to speak to attending hospitalist as to pt's need for RU. RU physician was wanting pt for RU for wound care and that pt was previously independent and more intense therapy would be beneficial. DEJAN spoke with physicianEster to submit for TCU pre-cert now. DEJAN placed a call to Ester with TCU and updated her. Ester to resubmit for TCU for pre-cert. Plan: TCU pending pre-cert Estefania Zamudio TOUCH UP EDGER, BLADDER CHANGER
[2020-09-18 09:29] VITALS: BP 153/59; PULSE 58; RESP 16; TEMP 36.8; O2SAT 98
[2020-09-18] MEDS: oxyCODONE 5 MG Tablet PO (09:47)
[2020-09-18] MEDS: Famotidine 20 MG Tablet PO (09:49)
[2020-09-18] MEDS: Furosemide 40 MG Tablet PO (09:49)
[2020-09-18] MEDS: amLODIPine 10 MG Tablet PO (09:49)
[2020-09-18] MEDS: Losartan Potassium 25 MG Tablet PO (09:49)
[2020-09-18] MEDS: Ranolazine 500 MG Tablet PO (09:49)
[2020-09-18 10:18] VITALS: O2SAT 97
--- NOTE | 2020-09-18 10:35 | NURSING ---
wound photo: right lateral thigh
[2020-09-18] MEDS: 0.9% Saline Lock 10 ML Syringe IV (13:48)
--- NOTE | 2020-09-18 13:52 | PCM.DC.SUM ---
Providers Date of Admission: 09/11/20 Primary Care Physician: Dr. Herson Zuniga, Consultations 09/11/20 19:56 Consult: Onc/Wound/precipitator supervisor Routine Comment: Reason for Consult:: Wound to right thigh 09/11/20 20:01 Consult: Plastic Surgery Routine Consulting Provider: González Oh Reason for Consult: Hematoma to right thigh EMERGENT Consult: No MD Notified: Yes Date Notified: 09/11/20 Time Notified: 20:01 Method of Notification: Verbal Reason For Visit: HEMATOMA Diagnosis Discharge Diagnosis (1) Traumatic hematoma of right hip: Status: Chronic Code(s): S70.01XA - Contusion of right hip, initial encounter (2) Humerus surgical neck fracture: Status: Acute Code(s): S42.213A - Unspecified displaced fracture of surgical neck of unspecified humerus, initial encounter for closed fracture (3) CAD (coronary artery disease): Status: Acute Code(s): I25.10 - Atherosclerotic heart disease of [place] coronary artery without angina pectoris (4) PAF (paroxysmal atrial fibrillation): Status: Acute Code(s): I48.0 - Paroxysmal atrial fibrillation (5) Open wound of right hip and thigh with complication: Status: Acute Code(s): S71.001A - Unspecified open wound, right hip, initial encounter; S71.101A - Unspecified open wound, right thigh, initial encounter Medications at Discharge Home Medications acetaminophen [Tylenol Extra Strength] 1,000 mg PO TID 09/12/20 amlodipine 10 mg PO DAILY 09/12/20 atorvastatin 40 mg PO DAILY 09/12/20 cholecalciferol (vitamin D3) [Vitamin D3] 50 mcg PO DAILY 09/12/20 diphenhydramine HCl [Benadryl] 25 mg PO DAILY 09/12/20 furosemide 40 mg PO DAILY 09/12/20 hydrochlorothiazide 25 mg PO DAILY 09/12/20 pantoprazole [Protonix] 40 mg PO DAILY 09/12/20 ranolazine [Ranexa] 500 mg PO BID 09/12/20 valsartan 80 mg PO DAILY 09/12/20 Eliquis 2.5 mg PO BID #0 tab 09/18/20 ferrous sulfate [Iron (ferrous sulfate)] 325 mg PO BID #60 tab 09/18/20 melatonin 3 mg PO QHS PRN PRN #0 tab 09/18/20 nystatin [Nyamyc] 1 applic TOPICAL TID #0 g 09/18/20 oxycodone 5 mg PO Q4H PRN PRN 2 Days #10 tab 09/18/20 potassium chloride 20 meq PO BID #0 cap 09/18/20 Hospital Course Summary of Care Provided Minutes Spent on Discharge: 42 Hospital Course: Patient is an 85-year-old lady with history of paroxysmal A. fib on systemic anticoagulation with Eliquis presented following a fall. Did develop traumatic right thigh hematoma for which evacuation was performed by Dr. Oh on 09/14/2020 with subsequent application of a wound VAC 1. Traumatic right thigh hematoma ?Following a fall. Evacuation was performed by Dr. Oh on 09/14/2020 with subsequent application of a wound VAC 2. Right humeral fracture ?Patient being managed conservatively currently in a sling 3. Anemia - Secondary to chronic disorder as well as acute blood loss anemia following patient's trauma. Monitoring H&H and transfuse if patient becomes symptomatic or hemoglobin falls below 7 4. Paroxysmal A. fib ?Rate controlled on Eliquis which is currently being held -Eliquis resumed on discharge. Dose was decreased to 2.5 mg p.o. twice daily 5. Hypertension - Blood pressure controlled, home medications continued with dose adjustment as needed 6. Dyslipidemia -Patient is on statin therapy, continued at home dose 7. Coronary artery disease ?On recommended medications in addition to Ranexa 8. DVT prophylaxis -SCDs 9. Physical deconditioning - Requested for PT OT eval and high school social studies teacher to assist with discharge planning Physical Exam Narrative GENERAL: cooperative HEENT: Atraumatic; EYES; Anicteric, Normal Conjunctiva NECK; supple, normal thyroid, RESPIRATORY: Diminished to auscultation CARDIOVASCULAR: Regular S1 S2, GI: soft, normoactive bowel sounds, : No Renal angle tenderness; EXTREMITIES: Wound VAC on the lateral aspect of the right thigh MUSCULOSKELETAL: no muscle waisting NEURO: Awake; no lateralizing signs. SKIN: No Rash PSYCH; Flat affect Weight / BMI Weight Weight: 91.807 kg Body Mass Index (BMI) 39.5 ABG / Lab / Microbiology Data Result Diagrams: 09/18/20 06:18 09/18/20 06:18 Laboratory: Laboratory Results - last 24 hr 09/18/20 06:18: WBC 5.2, RBC 2.82 L, Hgb 8.7 L, Hct 27.3 L, MCV 96.8, MCH 30.9, MCHC 31.9 L, RDW Std Deviation 51.8 H, RDW Coeff of Mily 14.5, Plt Count 401, MPV 9.0, Immature Gran % (Auto) 0.800, Neut % (Auto) 60.4, Lymph % (Auto) 12.3 L, [place] % (Auto) 16.5 H, Eos % (Auto) 9.2 H, Baso % (Auto) 0.8, Absolute Neuts (auto) 3.1, Absolute Lymphs (auto) 0.64 L, Nucleated RBC % 0 09/18/20 06:18: Sodium 138, Potassium 3.9, Chloride 105, Carbon Dioxide 27.0, Anion Gap 6, BUN 11, Creatinine 0.63, Estim Creat Clear Calc 30.62, Est GFR (MDRD) Af Amer 117, Est GFR (MDRD) Non-Af 96, BUN/Creatinine Ratio 17.5, Glucose 131 H, Calcium 8.9 Microbiology: Microbiology 09/14/20 14:34 Tissue - Hip Gram Stain - Final 09/14/20 14:34 Tissue - Hip Wound Culture - Final Staphylococcus aureus 09/14/20 14:34 Tissue - Hip Anaerobic Culture - Preliminary No growth in 48 hours. D/C Instructions Discharge Diet: No restrictions Discharge Activity: Return to Normal Activity Call your doctor if you observe: Fever of 101 or Higher, Shortness of breath, Fainting spells and Chest pain Meaningful Use Info Meaningful Use Diagnoses (Choose all that apply): None applicable Discharge Plan Admission Admit Date/Time: 09/11/20 19:55 Primary Reason for Your Visit: Right thigh hematoma Attending Provider: Osito Yadav Primary Care Provider: Herson Zuniga Consulting Providers: González Oh Discharge Orders/Prescriptions Prescriptions: New melatonin 3 mg Tablet 3 mg PO QHS PRN PRN (Reason: Insomnia) Qty: 0 RF: 0 nystatin [Nyamyc] 100,000 unit/gram Powder 1 applic topical TID Qty: 0 RF: 0 oxycodone 5 mg Tablet 5 mg PO Q4H PRN PRN (Reason: Pain Score 4-10) 2 Days Qty: 10 RF: 0 ferrous sulfate [Iron (ferrous sulfate)] 325 mg (65 mg iron) tablet 325 mg PO BID Qty: 60 RF: 0 Continued acetaminophen [Tylenol Extra Strength] 500 mg Tablet 1,000 mg PO TID RF: 0 amlodipine 10 mg Tablet 10 mg PO DAILY RF: 0 pantoprazole [Protonix] 40 mg Tablet,Delayed Release (Dr/Ec) 40 mg PO DAILY RF: 0 hydrochlorothiazide 25 mg Tablet 25 mg PO DAILY RF: 0 ranolazine [Ranexa] 500 mg Tablet Extended Release 12 Hr 500 mg PO BID RF: 0 furosemide 40 mg Tablet 40 mg PO DAILY RF: 0 atorvastatin 40 mg Tablet 40 mg PO DAILY RF: 0 valsartan 80 mg Tablet 80 mg PO DAILY RF: 0 diphenhydramine HCl [Benadryl] 25 mg Capsule 25 mg PO DAILY RF: 0 cholecalciferol (vitamin D3) [Vitamin D3] 50 mcg (2,000 unit) Capsule 50 mcg PO DAILY RF: 0 Changed potassium chloride 10 mEq Capsule, Extended Release 20 meq PO BID Qty: 0 RF: 0 Eliquis 5 mg Tablet 2.5 mg PO BID Qty: 0 RF: 0 Discontinued oxycodone 5 mg Tablet 5 mg PO Q6H PRN (Reason: Pain) RF: 0 aspirin 81 mg Tablet 81 mg PO DAILY RF: 0 Referrals / Follow Up: Herson Zuniga DO [Primary Care Provider] - Disposition Disposition (needs filled in before D/C Order can be placed): Custodial Facility Charges/Coding Visit Charges Inpatient E&M: 43083 Disch Hosp
--- NOTE | 2020-09-18 14:01 | PCM.TXEXTCAR ---
Diet 09/17/20 10:41 Diet: Regular - No Added Salt Food consistency:: Regular Liquid Consistency:: Regular/Thin Type of Dietary Supplement:: Ensure Enlive Is pt able to select menu?: No Diet Comments: small portions, cut into bite size pieces d/t eating w/ one hand, 120 ml EE Wound(s) right thigh: Wound Type: Open Surgical Wound Dressing Change: KCI wound VAC Problem/Diagnosis (1) Traumatic hematoma of right hip: Status: Chronic Comment: 15 cm traumatic hematoma right hip/proximal lateral thigh with overlying skin necrosis (2) Humerus surgical neck fracture: Status: Acute (3) CAD (coronary artery disease): Status: Acute (4) PAF (paroxysmal atrial fibrillation): Status: Acute (5) Open wound of right hip and thigh with complication: Status: Acute Allergies/Procedures Done in Hospital Allergies No Known Allergies Allergy (Verified 09/11/20 15:33) Type of Care/Length of Stay Estimated LOS: Convalescent Care Less Than 30 days Type of Care Needed: Skilled Rehab Potential: Good Prognosis: Good Additional Orders/Day of Discharge Day of Discharge: 09/18/20 Dietary and Speech Recommendations Dietitian Recommendations/Changes: Change diet to Regular No Added Salt, small portions, food cut into bite size pieces for ease of eating Provide 120 ml ensure enlive w/ meals Discharge Plan Admission Admit Date/Time: 09/11/20 19:55 Primary Reason for Your Visit: Right thigh hematoma Attending Provider: Osito Yadav Primary Care Provider: Herson Zuniga Consulting Providers: González Oh Discharge Orders/Prescriptions Prescriptions: New melatonin 3 mg Tablet 3 mg PO QHS PRN PRN (Reason: Insomnia) Qty: 0 RF: 0 nystatin [Nyamyc] 100,000 unit/gram Powder 1 applic topical TID Qty: 0 RF: 0 oxycodone 5 mg Tablet 5 mg PO Q4H PRN PRN (Reason: Pain Score 4-10) 2 Days Qty: 10 RF: 0 ferrous sulfate [Iron (ferrous sulfate)] 325 mg (65 mg iron) tablet 325 mg PO BID Qty: 60 RF: 0 Continued acetaminophen [Tylenol Extra Strength] 500 mg Tablet 1,000 mg PO TID RF: 0 amlodipine 10 mg Tablet 10 mg PO DAILY RF: 0 pantoprazole [Protonix] 40 mg Tablet,Delayed Release (Dr/Ec) 40 mg PO DAILY RF: 0 hydrochlorothiazide 25 mg Tablet 25 mg PO DAILY RF: 0 ranolazine [Ranexa] 500 mg Tablet Extended Release 12 Hr 500 mg PO BID RF: 0 furosemide 40 mg Tablet 40 mg PO DAILY RF: 0 atorvastatin 40 mg Tablet 40 mg PO DAILY RF: 0 valsartan 80 mg Tablet 80 mg PO DAILY RF: 0 diphenhydramine HCl [Benadryl] 25 mg Capsule 25 mg PO DAILY RF: 0 cholecalciferol (vitamin D3) [Vitamin D3] 50 mcg (2,000 unit) Capsule 50 mcg PO DAILY RF: 0 Changed potassium chloride 10 mEq Capsule, Extended Release 20 meq PO BID Qty: 0 RF: 0 Eliquis 5 mg Tablet 2.5 mg PO BID Qty: 0 RF: 0 Discontinued oxycodone 5 mg Tablet 5 mg PO Q6H PRN (Reason: Pain) RF: 0 aspirin 81 mg Tablet 81 mg PO DAILY RF: 0 Referrals / Follow Up: Herson Zuniga DO [Primary Care Provider] - Disposition Disposition (needs filled in before D/C Order can be placed): [facility] Facility
--- NOTE | 2020-09-18 14:34 | CASEMGMT ---
Social Work Note DEJAN received call from Ester with TCU stating pt was approved for TCU, can admit today, will need a COVID test. Physician updated. SW in to speak with pt. SW updated pt that pre-cert for TCU has been obtained and pt will discharge there today. Pt states understanding, states she has already called her family to let them know. Original SNF paperwork in SNF folder and copy on pt's chart. Plan: TCU today Estefania Zamudio SAILING INSTRUCTOR, INTERNAL MEDICINE DOCTOR
--- NOTE | 2020-09-18 15:14 | PN.SURG_ITS ---
Subjective Subjective Postop #4 Patient is resting comfortably in bed. Pain is well controlled. Objective Data Objective Data Vital Signs: Vital Signs Temp Pulse Resp BP Pulse Ox 98.2 F 58 L 16 153/59 H 97 09/18/20 09:29 09/18/20 09:29 09/18/20 09:29 09/18/20 09:29 09/18/20 10:18 Oxygen Flow Rate (L/min) 2 Oxygen Delivery Method Room Air Weight: 202 lb 6.396 oz Body Mass Index (BMI) 39.5 Intake & Output: Intake and Output for Last 24 Hours 09/16/20 09/17/20 09/18/20 23:59 23:59 23:59 Intake Total 2507.25 / 2507.25 1772.25 / 1772.25 800 / 800 Output Total 2049 / 2049 400 / 1000 1300 / 1300 Balance 457.25 / 457.25 1372.25 / 772.25 -500 / -500 Lab / Micro Data Result Diagrams: 09/18/20 06:18 09/18/20 06:18 Labs: Laboratory Results - last 24 hr 09/18/20 06:18: WBC 5.2, RBC 2.82 L, Hgb 8.7 L, Hct 27.3 L, MCV 96.8, MCH 30.9, MCHC 31.9 L, RDW Std Deviation 51.8 H, RDW Coeff of Mily 14.5, Plt Count 401, MPV 9.0, Immature Gran % (Auto) 0.800, Neut % (Auto) 60.4, Lymph % (Auto) 12.3 L, [place] % (Auto) 16.5 H, Eos % (Auto) 9.2 H, Baso % (Auto) 0.8, Absolute Neuts (auto) 3.1, Absolute Lymphs (auto) 0.64 L, Nucleated RBC % 0 09/18/20 06:18: Sodium 138, Potassium 3.9, Chloride 105, Carbon Dioxide 27.0, Anion Gap 6, BUN 11, Creatinine 0.63, Estim Creat Clear Calc 30.62, Est GFR (MDRD) Af Amer 117, Est GFR (MDRD) Non-Af 96, BUN/Creatinine Ratio 17.5, Glucose 131 H, Calcium 8.9 Micro: Microbiology 09/14/20 14:34 Tissue - Hip Gram Stain - Final 09/14/20 14:34 Tissue - Hip Wound Culture - Final Staphylococcus aureus 09/14/20 14:34 Tissue - Hip Anaerobic Culture - Preliminary No growth in 48 hours. Physical Exam Const oriented x3 and no apparent distress HEENT normocephalic Eyes PERRL Resp normal respiratory effort Cardio regular rate GI non-tender Extremity full ROM Skin Wound Narrative: Right lateral hip/thigh wound is stable with no active bl eeding. Wound VAC reapplied today. Patient is tolerating it well. Assessment & Plan Assessment/Plan (1) Traumatic hematoma of right hip: (2) Skin necrosis: (3) Acute right hip pain: (4) Fall from motorized mobility scooter: (5) History of right hip replacement: (6) Open wound of right hip and thigh with complication: (7) Anemia of chronic disease: PLAN: The right hip/proximal lateral thigh wound was clean and stable. No further evidence of infection or bleeding. VAC dressing changed today. Operative cultures are positive for Staphylococcus aureus. Continue Cefazolin. She states her pain is well controlled. Hgb dropped from 10.6 to 9.4. Today's Hgb is 8.7. She has anemia of chronic disease, acute on chronic. She had about 650 ml of blood clot in the wound that was evacuated at the time of surgery. Other causes are IV fluid dilution. Will observe. Will start Iron supplementation. Will recheck Hgb daily. Her Prealbumin was 9.8 on 09/15/20. Encourage nutritional supplementation with protein to help the healing process. She will be transferred to TCU when a bed becomes available. When she is discharged from TCU, [facility] follow up care.
[2020-09-18 15:41] VITALS: BP 161/68; PULSE 61; RESP 18; TEMP 37.2; O2SAT 98
--- NOTE | 2020-09-18 16:03 | CHAPLAIN ---
Type of Pastoral Visit ___ Initial Visit _x__ Follow-up Visit ___ On-call Visit ___ General Patient Visit ___ Spiritual Assessment ___ Family Conference ___ Bereavement ___ Rapid Response ___ Code Blue ___ Other (describe below) Pastoral Care Referral From _x__ Patient ___ Family ___ Nurse ___ Physician ___ Manual Lathe Operator ___ Auxiliary Plant Operator ___ Other (describe below) Sacrament/Intervention _x__ Active listening ___ Anointing ___ Quaker ___ Bereavement ___ Communion ___ Tyesha exploration ___ ___ Life review _x__ Prayer ___ Reconciliation ___ Sacrament of Sick ___ Supportive presence ___ Wedding ___ Other (describe below) Pastoral Comments
== END 2020-09-18 18:12 | DRG 571 ==
PROVIDERS: Anesthesiology; Nurse Practitioner Family; Student in an Organized Health Care Education/Training Program; Surgery; Admitting Provider Hospitalist; PCP Student in an Organized Health Care Education/Training Program; Visit Provider Internal Medicine
PROC: 0JBL0ZZ Excision of Right Upper Leg Subcutaneous Tissue and Fascia, Open Approach (ICD-10-PCS; principal; 2020-09-14 12:55)
DX: S70.11XA Contusion of right thigh, initial encounter (principal); I96 Gangrene, not elsewhere classified; E87.1 Hypo-osmolality and hyponatremia; D62 Acute posthemorrhagic anemia; S71.101A Unspecified open wound, right thigh, initial encounter; B95.61 Methicillin susceptible Staphylococcus aureus infection as the cause of diseases classified elsewhere; I87.2 Venous insufficiency (chronic) (peripheral); E87.6 Hypokalemia; I12.9 Hypertensive chronic kidney disease with stage 1 through stage 4 chronic kidney disease, or unspecified chronic kidney disease; N18.1 Chronic kidney disease, stage 1; D63.8 Anemia in other chronic diseases classified elsewhere; I48.0 Paroxysmal atrial fibrillation; I35.0 Nonrheumatic aortic (valve) stenosis; Z20.822 Contact with and (suspected) exposure to COVID-19; S42.211D Unspecified displaced fracture of surgical neck of right humerus, subsequent encounter for fracture with routine healing; I25.10 Atherosclerotic heart disease of native coronary artery without angina pectoris; E78.5 Hyperlipidemia, unspecified; M79.7 Fibromyalgia; M19.90 Unspecified osteoarthritis, unspecified site; V00.831A Fall from motorized mobility scooter, initial encounter; Y93.9 Activity, unspecified; Y92.512 Supermarket, store or market as the place of occurrence of the external cause; Y99.9 Unspecified external cause status; Z79.01 Long term (current) use of anticoagulants; Z79.899 Other long term (current) drug therapy; Z85.828 Personal history of other malignant neoplasm of skin; Z96.641 Presence of right artificial hip joint
CPT/HCPCS: 36415; 73700; 80048; 80053; 83880; 84134; 85025; 85610; 85652; 85730; 86140; 86850; 86900; 86901; 86920; 86922; 87015; 87070; 87075; 87077; 87102; 87116; 87186; 87205; 87206; 87426; 88305; 93005; 97110; 97162; 97166; 97530; 97535; 97802; 97803; 99203; J7030; J7050; A4216; G0463; J2405

== ENCOUNTER 2020-09-18 18:20 | Inpatient (IN) | payer MEDICARE, SELFPAY ==
[2020-09-14 11:46] VITALS: BMI 39.5
[2020-09-18 18:25] VITALS: BP 169/65; PULSE 67; RESP 16; TEMP 37.2; O2SAT 95; BMI 39.5
--- NOTE | 2020-09-18 19:05 | NURSING ---
Paged Dr. Max with return call within minutes. Updated pharmacist verbalized concerns w/ orders for both HCTZ and Lasix d/t hx of hypokalemia. New order received to dc HCTZ. Requested order for purewick at hs due to dribbling and Cepacol for dry cough. New orders received for purewick and Cepacol.
--- NOTE | 2020-09-18 21:23 | HP.PCM_ITS ---
HPI - General General Date of Admission: 09/18/20 HPI Narrative 09/11/2020 ABIGAIL MARTINS, is a 85 Female who presents to wound center with left thigh hematoma with wound, hospital admission recommended. 09/11/2020 Admit to Hospital. Consult Dr. Oh for left thigh hematoma. Prepare for surgery. Replete potassium for hypokalemia. Hold Eliquis to prepare for surgery. 09/12/2020 Sling for recent right humerus fracture. 09/13/2020 PT/OT for debility. Sodium improved to 135. 09/14/2020 Feels well. Type & Cross to prepare for surgery. 09/14/2020 Dr. Oh performed incision and drainage right lateral thigh, evacuation, excisional debridement traumatic hematoma. 09/15/2020 Hemoglobin 9.4, Eliquis held. Hyponatremia resolved. 09/16/2020 Wound VAC right lateral thigh, wound VAC changes painful. Hold Eliquis for now, resume when okay with Dr. Oh. Hemoglobin 8.6, no active bleeding, monitor. 09/17/2020 Transfuse if hemoglobin less than 7. Eliquis on hold. 09/18/2020 Resume Eliquis 2.5MG twice daily. 09/18/2020 Admit to TCU with debility, here for rehabilitation, strengthening, wound care, prior to discharge home with family. [facility] Medical History Acute right hip pain Anemia Atrial fibrillation Chronic renal failure, stage 3 (moderate) Fall from motorized mobility scooter Fibromyalgia History of skin cancer Hypertension Nonrheumatic aortic (valve) stenosis Open wound of right hip and thigh with complication Osteoarthritis Skin necrosis Traumatic hematoma of right hip Venous insufficiency of both lower extremities Vitamin D deficiency Home Medications acetaminophen [Tylenol Extra Strength] 1,000 mg PO TID 09/12/20 [History Last Taken Unknown] amlodipine 10 mg PO DAILY 09/12/20 [History Last Taken Unknown] atorvastatin 40 mg PO DAILY 09/12/20 [History Last Taken Unknown] cholecalciferol (vitamin D3) [Vitamin D3] 50 mcg PO DAILY 09/12/20 [History Last Taken Unknown] diphenhydramine HCl [Benadryl] 25 mg PO DAILY 09/12/20 [History Last Taken Unknown] furosemide 40 mg PO DAILY 09/12/20 [History Last Taken Unknown] hydrochlorothiazide 25 mg PO DAILY 09/12/20 [History Last Taken Unknown] pantoprazole [Protonix] 40 mg PO DAILY 09/12/20 [History Last Taken Unknown] ranolazine [Ranexa] 500 mg PO BID 09/12/20 [History Last Taken Unknown] valsartan 80 mg PO DAILY 09/12/20 [History Last Taken Unknown] Eliquis 2.5 mg PO BID #0 tab 09/18/20 [Rx Last Taken Unknown] ferrous sulfate [Iron (ferrous sulfate)] 325 mg PO BID 09/18/20 [History Last Taken Unknown] melatonin 3 mg PO QHS PRN PRN #0 tab 09/18/20 [Rx Last Taken Unknown] nystatin [Nyamyc] 1 applic TOPICAL TID 09/18/20 [History Last Taken Unknown] oxycodone 5 mg PO Q4H PRN PRN 2 Days #10 tab 09/18/20 [Rx Last Taken Unknown] potassium chloride 20 meq PO BID #0 cap 09/18/20 [Rx Last Taken Unknown] Allergy/AdvReac Type Severity Reaction Status Date / Time No Known Allergies Allergy Verified 09/11/20 15:33 Surgical History History of hemiarthroplasty of right hip Hx of appendectomy Hx of cardiac catheterization Hx of hysterectomy Social History Smoking Status: Never smoker ROS Constitutional Constitutional: Denies chills, fever(s) or weight gain ENT HEENT: Denies headache(s), nasal congestion or nasal discharge Cardiovascular Cardiovascular: Denies chest pain or palpitations Respiratory/Chest Respiratory/Chest: Denies cough, excessive phlegm production or shortness of breath with exertion Gastrointestinal Gastrointestinal: Denies abdominal pain, nausea or vomiting Genitourinary Genitourinary: Denies dysuria Musculoskeletal Musculoskeletal: Denies joint pain or joint swelling Integumentary Integumentary: Denies rash or wounds Neurologic Neurologic: Denies focal weakness, numbness or tingling Psychiatric Psychiatric: Reports auditory hallucinations; Denies anxiety, depression, homicidal ideation or suicidal ideation Vital Signs Vital Signs Vital Signs: 09/18/20 18:25 Temperature 99.0 F Temperature Source Temporal Pulse Rate 67 Pulse Rhythm Irregular Pulse Strength Normal (2+) Respiratory Rate 16 Respiratory Effort Normal Non-Labored Respiratory Depth Normal Respiratory Pattern Normal Blood Pressure 169/65 H Blood Pressure Mean 99 Blood Pressure Source Monitor Blood Pressure Position Semi-Fowlers Blood Pressure Location Left Arm Pulse Ox 95 Oxygen Delivery Method Room Air Weight Weight: 91.898 kg Body Mass Index (BMI) 39.5 Physical Exam Const alert and oriented x3 General Appearance: cooperative HEENT normocephalic Eyes PERRL and EOMs intact bilaterally Neck supple, no JVD and no carotid bruits Resp normal respiratory effort, normal air movement and clear to auscultation bilaterally Cardio regular rate and regular rhythm GI normal to inspection, nondistended, normoactive bowel sounds, non-tender and non-distended Extremity normal capillary refill Extremity Narrative: Right upper extremity sling. General Extremity: Negative for edema Skin no rashes or lesions noted Skin Narrative: Wound VAC right hip. General Skin Exam: no breakdown Psych affect normal Appearance: appropriate Results Lab / Micro Data Result Diagrams: 09/19/20 05:10 09/19/20 05:10 Assessment & Plan Assessment/Plan (1) Debility: (2) Traumatic hematoma of right hip: (3) Hyponatremia: (4) Hypokalemia: (5) Right humeral fracture: (6) Acute anemia: (7) Atrial fibrillation: (8) Bradycardia: (9) Coronary artery disease: (10) Aortic stenosis: (11) Orthostatic hypotension: (12) Vitamin D deficiency: (13) Hypertension: (14) Gout: (15) Osteoarthritis: (16) Fibromyalgia: PLAN: 85 year old female with below past medical history significant recent right humerus fracture, hospitalized for traumatic hematoma right hip, underwent incision/drainage 09/14/[address] Oh with application of wound VAC, complicated by hyponatremia, hypokalemia, acute anemia, admitted to TCU wi th debility, here for rehabilitation, strengthening, wound care, prior to discharge home with family. * Debility - PT/OT. * Pain - Tylenol 1000MG TID, Oxycodone 5MG Q4H PRN pain (4-10). * Bowel - Miralax 17GM daily, Senna/colace 2 tablets BID, Dulcolax 10MG daily PRN. * Adult immunization - Administer Prevnar 13, Pneumovax 23, Fluzone, COVID19 vaccine as appropriate. * DVT prophylaxis - Not necessary, already on Eliquis. * Hypertension - Losartan 25MG daily, Amlodipine 10MG daily. * Atrial fibrillation - Eliquis 2.5MG BID. * Hyperlipidemia - Atorvastatin 40MG QHS. * Cough - Cepacol 1 lozenge Q2H PRN. * Vitamin D deficiency - D3 50MCG daily. * Iron deficiency anemia - Ferrous Sulfate 325MG BID. * Edema - Lasix 40MG daily. * Insomnia - Melatonin 3MG QHS PRN. * Tinea Corporis - Nystatin powder topical TID. * GERD - Pantoprazole 40MG daily. * Hypokalemia - KCL 20MEQ BIDCM. * Coronary Artery disease - Losartan 25MG daily, Ranexa 500MG BID. * Right hip hematoma status post evacuation - Wound VAC, consult wound nurse.
--- NOTE | 2020-09-18 21:43 | NURSING ---
Patient request to be DNRCC. Patient states she wants to go in peace, no artificial anything.
[2020-09-18] MEDS: Acetaminophen 500 MG Tablet 1000 MG PO (21:57)
[2020-09-18] MEDS: Nystatin Powder 15gm Bottle 1 APPLIC TOPICAL (22:01)
[2020-09-19 05:24] VITALS: BP 157/70; PULSE 73; RESP 18; TEMP 36.7; O2SAT 93
[2020-09-19 05:38] LABS: Absolute Neutrophil Count 2.5 X10^3/uL (2.0-7.7); Basophil# 0.02 X10^3/uL; Basophil% 0.4 % (0-1); Eosinophil# 0.45 X10^3/uL; Eosinophils% 9.5 % (0-5); Hematocrit 28.7 % (37-47); Hemoglobin 9.1 g/dL (12.0-15.0); Lymphocyte % 16.9 % (19-41); Mean Corp Hgb Conc 31.7 g/dL (32-36); Mean Corpuscular Hgb 30.3 pg (27.0-32.0); Mean Corpuscular Volume 95.7 fL (81-99); Mean Platelet Vol. 8.8 fl (6.2-12.0); Monocyte# 0.88 X10^3/uL; Monocyte% 18.6 % (0-10); NRBC Flagged by Analyzer 0 % (0-5); Neutrophil # 2.54 X10^3/uL (2.7-7.7); Platelet Count 434 K/mm3 (150-450); RBC Distribution Width CV 14.6 % (11.6-14.6); RBC Distribution Width SD 51.7 fl (35.1-43.9); White Blood Count 4.7 K/mm3 (4.4-11.0)
[2020-09-19 05:53] LABS: Anion Gap 6 (5-15); BUN 12 mg/dL (7-18); BUN/Creat Ratio 18.1 RATIO (10-20); Calcium,Total 8.8 mg/dL (8.5-10.1); Chloride 103 mmol/L (98-107); Creatinine, Serum 0.66 mg/dL (0.55-1.02); EST Glomerular Filtration Rate 90 mL/min (>60); Est Glom Filt Rate - Afr Amer 109 mL/min (>60); Estimated Creatinine Clearance 30.62 ml/min; Glucose 113 mg/dL (74-106); Potassium 3.7 mmol/L (3.5-5.1); Sodium Level 139 mmol/L (136-145)
[2020-09-19] MEDS: Furosemide 40 MG Tablet PO (05:54)
[2020-09-19] MEDS: Ranolazine 500 MG Tablet PO ×2 (05:54→17:27)
[2020-09-19] MEDS: Cholecalciferol (VIT D3) 25 MCG TABLET (1,000 UNITS) 50 MCG PO (05:54)
[2020-09-19] MEDS: Senna/Docusate Sodium 1 Tablet 2 TABLET PO ×2 (05:54→17:27)
[2020-09-19] MEDS: Atorvastatin Calcium 40 MG Tablet PO (05:54)
[2020-09-19] MEDS: Losartan Potassium 25 MG Tablet PO (05:54)
[2020-09-19] MEDS: amLODIPine 10 MG Tablet PO (05:54)
[2020-09-19] MEDS: Pantoprazole Sodium 40 MG Tablet PO (05:54)
[2020-09-19] MEDS: Acetaminophen 500 MG Tablet 1000 MG PO ×3 (05:55→21:37)
[2020-09-19] MEDS: Nystatin Powder 15gm Bottle 1 APPLIC TOPICAL ×3 (05:57→21:36)
[2020-09-19] MEDS: BENZOCAINE/MENTHOL 1 LOZENGE MUCOUS MEM ×2 (05:59→21:48)
[2020-09-19] MEDS: Potassium Chloride Oral Tablet 10 MEQ 20 MEQ PO ×2 (08:15→17:27)
--- NOTE | 2020-09-19 09:47 | NURSING ---
Addendum entered by Charla Warner 09/19/20 13:41: PT is to see Rai VAUGHAN from [facility] on 09/21/20 at 1315, talked with Daughter in Law Lexii, Family is to transport Original Note: Pt reports that she has not had a follow up appointment for her humerus fracture and does not remember who she originally seen for it. Pt reports going to [facility] then to a rehab facility but does not remember which one, Estefania granddaughter was called to try to obtain information, no answer but message was left to return phone call.
[2020-09-19] MEDS: Ferrous Sulfate 325 MG Tablet PO ×2 (11:09→17:27)
[2020-09-19] MEDS: Tuberculin,Purif.prot.deriv. 50 TU/ML Vial 0.1 ML ID (11:10)
--- NOTE | 2020-09-19 13:36 | PCM.PN.RX ---
Progress Note - Pharmacy Subjective: TCU Admission Objective: Allergies No Known Allergies Allergy (Verified 09/11/20 15:33) Current Medications Generic Name Dose Route Start Last Admin Trade Name César PRN Reason Stop Dose Admin Acetaminophen 1,000 mg 09/18/20 22:00 09/19/20 13:14 Acetaminophen 500 Mg Tablet PO 1,000 mg TID CHARO Administration Amlodipine Besylate 10 mg 09/19/20 06:00 09/19/20 05:54 Amlodipine 10 Mg Tablet PO 10 mg DAILY CHARO Administration Apixaban 2.5 mg 09/26/20 06:00 Apixaban 2.5 Mg Tablet PO BID CHARO Atorvastatin Calcium 40 mg 09/19/20 06:00 09/19/20 05:54 Atorvastatin Calcium 40 Mg Tablet PO 40 mg DAILY CHARO Administration Bisacodyl 10 mg 09/18/20 21:41 Bisacodyl 5 Mg Tablet PO DAILY PRN Constipation Cholecalciferol 50 mcg 09/19/20 06:00 09/19/20 05:54 Cholecalciferol (Vit D3) 25 Mcg Tablet (1,000 Units) PO 50 mcg DAILY CHARO Administration Ferrous Sulfate 325 mg 09/19/20 12:00 09/19/20 11:09 Ferrous Sulfate 325 Mg Tablet PO 325 mg BIDLS CHARO Administration Furosemide 40 mg 09/19/20 06:00 09/19/20 05:54 Furosemide 40 Mg Tablet PO 40 mg DAILY CHARO Administration Losartan Potassium 25 mg 09/19/20 06:00 09/19/20 05:54 Losartan Potassium 25 Mg Tablet PO 25 mg DAILY CHARO Administration Melatonin 3 mg 09/18/20 18:30 Melatonin 3 Mg Tablet PO QHS PRN PRN Insomnia Nystatin 1 applic 09/18/20 22:00 09/19/20 13:16 Nystatin Powder 15gm Bottle TOPICAL 1 applic TID CHARO Administration Protocol Oxycodone HCl 5 mg 09/18/20 18:30 Oxycodone 5 Mg Tablet PO Q4H PRN PRN Pain Score 4-10 Pantoprazole Sodium 40 mg 09/19/20 06:00 09/19/20 05:54 Pantoprazole Sodium 40 Mg Tablet PO 40 mg DAILY CHARO Administration Polyethylene Glycol 17 gm 09/19/20 06:00 09/19/20 05:55 Polyethylene Glycol 3350 17 Gm Packet PO Not Given DAILY [facility] Potassium Chloride 20 meq 09/19/20 08:00 09/19/20 08:15 Potassium Chloride Oral Tablet 10 Meq PO 20 meq BIDCM CHARO Administration Ranolazine 500 mg 09/19/20 06:00 09/19/20 05:54 Ranolazine 500 Mg Tablet PO 500 mg BID CHARO Administration Senna/Docusate Sodium 2 tablet 09/19/20 06:00 09/19/20 05:54 Senna/Docusate Sodium 1 Tablet PO 2 tablet BID CHARO Administration Sodium Chloride 10 - 40 ml 09/18/20 21:33 0.9% Saline Lock 10 Ml Syringe IV UD PRN SALINE FLUSH Throat Lozenges 1 lozenge 09/18/20 21:05 09/19/20 05:59 Benzocaine/Menthol 1 Lozenge MUCOUS MEM 1 lozenge Q2H PRN PRN Administration COUGH Tuberculin PPD 0.1 ml 09/26/20 10:00 Tuberculin,Purif.Prot.Deriv. 50 Tu/Ml Vial ID 09/26/20 10:01 X1 ONE Problem List (Last Reviewed 09/18/20 @ 21:[address] Yonny Max MD) Fibromyalgia (Acute) Osteoarthritis (Acute) Gout (Acute) Hypertension (Chronic) Vitamin D deficiency (Acute) Orthostatic hypotension (Acute) Aortic stenosis (Acute) Coronary artery disease (Acute) Bradycardia (Acute) Atrial fibrillation (Acute) Acute anemia (Acute) Right humeral fracture (Acute) Hypokalemia (Acute) Hyponatremia (Acute) Debility (Acute) Traumatic hematoma of right hip (Chronic) Vital Signs Temp Pulse Resp BP Pulse Ox 98.0 F 73 18 157/70 H 93 09/19/20 05:24 09/19/20 05:24 09/19/20 05:24 09/19/20 05:24 09/19/20 05:24 Oxygen Delivery Method Room Air Weight: 91.898 kg Body Mass Index (BMI) 39.5 Sodium 139 mmol/L (136-145) 09/19/20 05:10 Potassium 3.7 mmol/L (3.5-5.1) 09/19/20 05:10 Chloride 103 mmol/L (98-107) 09/19/20 05:10 Carbon Dioxide 30.0 mmol/L (21.0-32.0) 09/19/20 05:10 Anion Gap 6 (5-15) 09/19/20 05:10 BUN 12 mg/dL (7-18) 09/19/20 05:10 Creatinine 0.66 mg/dL (0.55-1.02) 09/19/20 05:10 Est GFR (MDRD) Af Amer 109 mL/min (>60) 09/19/20 05:10 Est GFR (MDRD) Non-Af 90 mL/min (>60) 09/19/20 05:10 BUN/Creatinine Ratio 18.1 RATIO (10-20) 09/19/20 05:10 Glucose 113 mg/dL (74-106) H 09/19/20 05:10 Assessment/Plan: 1. Pain: acetaminophen 1000mg PO TID and oxycodone 5mg PO Q4H PRN pain 4-10. Please continue to monitor for increased pain and PRN usage. 2. Hypertension/CAD: losartan 25mg PO daily, amlodipine 10mg PO daily and ranolazine 500mg PO BID. Please continue to monitor BP (last 157/70), HR (last 73), renal function, potassium (last 3.7mmol/L) and swelling. *3. Atrial fibrillation: apixaban 2.5mg PO BID. Please consider increasing dose to 5mg BID. Patient only meets 1/3 criteria for the decreased dose. Her weight is >60kg and SCr is <1.5mg/dL. Thanks. Please continue to monitor for S/S bleeding, hemoglobin (9.1g/dL), and renal function. *4. Hyperlipidemia: atorvastatin 40mg PO QHS. Patient does not have a lipid panel on file. Please consider ordering a lipid panel. Thanks. Please continue to monitor for muscle pain. 5. Iron deficiency anemia: ferrous sulfate 325mg PO BIDLS. Please continue to monitor hemoglobin (last 9.1g/dL) and for dark stools. 6. Edema: furosemide 40mg PO daily. Please continue to monitor renal function, swelling and potassium. 7. GERD: pantoprazole 40mg PO daily. Please continue to monitor for S/S of GERD and diarrhea. 8. Hypokalemia: potassium chloride 20mEq PO BIDCM. Please continue to monitor potassium (last 3.7mmol/L). 9. Insomnia: melatonin 3mg PO QHS PRN insomnia. Please continue to monitor for excessive drowsiness and PRN usage. 10. Cough: Cepacol 1 lozenge Q2H MM PRN cough. Please continue to monitor for cough and PRN usage. *11. Vitamin D deficiency: cholecalciferol 50mcg PO daily. Please consider ordering a vitamin D level. Patient does not have one in chart. Thanks. Psychotropic Medications: None Unnecessary Medications: None Bowel Regimen: Miralax 17gm PO daily, senna/docusate 2T PO BID, and bisacodyl 10mg PO daily PRN constipation. Please continue to monitor for constipation and PRN usage. Date of Note:: 09/19/20
[2020-09-19 16:00] VITALS: BP 147/60; PULSE 62; RESP 16; TEMP 36.1; O2SAT 97
[2020-09-19] MEDS: Menthol/Lanolin/Calamine/Znox 113 GM Tube 1 APPLIC TOPICAL (17:31)
[2020-09-20 05:00] VITALS: BP 199/72; PULSE 58; RESP 18; O2SAT 98
[2020-09-20] MEDS: Acetaminophen 500 MG Tablet 1000 MG PO ×3 (07:03→21:12)
[2020-09-20] MEDS: Senna/Docusate Sodium 1 Tablet 2 TABLET PO (07:04)
[2020-09-20] MEDS: Atorvastatin Calcium 40 MG Tablet PO (07:04)
[2020-09-20] MEDS: Pantoprazole Sodium 40 MG Tablet PO (07:04)
[2020-09-20] MEDS: Furosemide 40 MG Tablet PO (07:04)
[2020-09-20] MEDS: Cholecalciferol (VIT D3) 25 MCG TABLET (1,000 UNITS) 50 MCG PO (07:04)
[2020-09-20] MEDS: Ranolazine 500 MG Tablet PO ×2 (07:04→17:24)
[2020-09-20] MEDS: Losartan Potassium 25 MG Tablet PO (07:04)
[2020-09-20] MEDS: Menthol/Lanolin/Calamine/Znox 113 GM Tube 1 APPLIC TOPICAL ×2 (07:04→17:30)
[2020-09-20] MEDS: Nystatin Powder 15gm Bottle 1 APPLIC TOPICAL ×3 (07:04→21:12)
[2020-09-20] MEDS: amLODIPine 10 MG Tablet PO (07:04)
[2020-09-20 08:00] VITALS: BP 156/67; PULSE 62
[2020-09-20] MEDS: Potassium Chloride Oral Tablet 10 MEQ 20 MEQ PO ×2 (08:15→17:25)
[2020-09-20] MEDS: BENZOCAINE/MENTHOL 1 LOZENGE MUCOUS MEM (08:18)
[2020-09-20] MEDS: Loratadine 10 MG Tablet PO ×2 (08:50→21:12)
[2020-09-20 09:45] VITALS: PULSE 61; RESP 18; O2SAT 98
[2020-09-20] MEDS: Ferrous Sulfate 325 MG Tablet PO ×2 (11:32→17:24)
[2020-09-20 14:22] VITALS: BP 117/37; PULSE 66; RESP 17; TEMP 37.1; O2SAT 96
[2020-09-20] MEDS: Doxycycline 100 MG CAPSULE PO (17:25)
[2020-09-21 06:31] VITALS: BP 160/70; PULSE 80; RESP 16; TEMP 36.4; O2SAT 95
[2020-09-21] MEDS: Atorvastatin Calcium 40 MG Tablet PO (06:33)
[2020-09-21] MEDS: Doxycycline 100 MG CAPSULE PO ×2 (06:34→17:45)
[2020-09-21] MEDS: Ranolazine 500 MG Tablet PO ×2 (06:34→17:44)
[2020-09-21] MEDS: Pantoprazole Sodium 40 MG Tablet PO (06:34)
[2020-09-21] MEDS: Cholecalciferol (VIT D3) 25 MCG TABLET (1,000 UNITS) 50 MCG PO (06:34)
[2020-09-21] MEDS: Losartan Potassium 25 MG Tablet PO (06:34)
[2020-09-21] MEDS: Furosemide 40 MG Tablet PO (06:34)
[2020-09-21] MEDS: Loratadine 10 MG Tablet PO (06:34)
[2020-09-21] MEDS: Acetaminophen 500 MG Tablet 1000 MG PO ×3 (06:35→21:18)
[2020-09-21] MEDS: amLODIPine 10 MG Tablet PO (06:36)
[2020-09-21] MEDS: Nystatin Powder 15gm Bottle 1 APPLIC TOPICAL ×3 (06:39→21:18)
[2020-09-21] MEDS: Menthol/Lanolin/Calamine/Znox 113 GM Tube 1 APPLIC TOPICAL ×2 (06:39→17:51)
[2020-09-21] MEDS: Potassium Chloride Oral Tablet 10 MEQ 20 MEQ PO ×2 (07:44→17:44)
[2020-09-21] MEDS: BENZOCAINE/MENTHOL 1 LOZENGE MUCOUS MEM (09:01)
--- NOTE | 2020-09-21 10:17 | NURSING ---
KATHYRN/WOUND NURSE CHANGED PT WOUND VAC TODAY.
--- NOTE | 2020-09-21 10:44 | CASEMGMT ---
Social Work Brief interview for mental status (BIMS) and resident mood assessment (PHQ-9) completed on this day. Trista CRAWFORD, [place]ID[place]
--- NOTE | 2020-09-21 11:02 | NURSING ---
wound photo: right lateral thigh
[2020-09-21] MEDS: oxyCODONE 5 MG Tablet PO (11:25)
[2020-09-21] MEDS: Ferrous Sulfate 325 MG Tablet PO ×2 (11:26→17:44)
--- NOTE | 2020-09-21 12:49 | NURSING ---
PT LEFT AT 12:[address] APPOINTMENT BY WHEEL CHAIR. FAMILY TAKING.
--- NOTE | 2020-09-21 14:43 | NURSING ---
PT RETURNED TO FLOOR BY WHEEL CHAIR WITH DAUGHTER IN LAW FROM APPOINTMENT AT [facility]. NO NEW ORDERS.
[2020-09-21 14:51] VITALS: BP 144/68; PULSE 58; RESP 18; TEMP 36.7; O2SAT 97
[2020-09-22] MEDS: Menthol/Lanolin/Calamine/Znox 113 GM Tube 1 APPLIC TOPICAL ×2 (05:07→17:26)
[2020-09-22] MEDS: Polyethylene Glycol 3350 17 GM PACKET PO (05:08)
[2020-09-22] MEDS: Cholecalciferol (VIT D3) 25 MCG TABLET (1,000 UNITS) 50 MCG PO (05:08)
[2020-09-22] MEDS: Pantoprazole Sodium 40 MG Tablet PO (05:09)
[2020-09-22] MEDS: Acetaminophen 500 MG Tablet 1000 MG PO ×3 (05:09→20:01)
[2020-09-22] MEDS: Losartan Potassium 25 MG Tablet PO (05:09)
[2020-09-22] MEDS: amLODIPine 10 MG Tablet PO (05:09)
[2020-09-22] MEDS: Ranolazine 500 MG Tablet PO ×2 (05:09→17:25)
[2020-09-22] MEDS: Senna/Docusate Sodium 1 Tablet 2 TABLET PO (05:09)
[2020-09-22] MEDS: Atorvastatin Calcium 40 MG Tablet PO (05:09)
[2020-09-22] MEDS: Loratadine 10 MG Tablet PO (05:10)
[2020-09-22] MEDS: Furosemide 40 MG Tablet PO (05:10)
[2020-09-22] MEDS: Nystatin Powder 15gm Bottle 1 APPLIC TOPICAL ×3 (05:10→20:01)
[2020-09-22] MEDS: Doxycycline 100 MG CAPSULE PO ×2 (05:10→17:25)
[2020-09-22 06:24] VITALS: BP 117/72; PULSE 64; RESP 12; TEMP 36
[2020-09-22] MEDS: Potassium Chloride Oral Tablet 10 MEQ 20 MEQ PO ×2 (08:37→17:24)
[2020-09-22] MEDS: Ferrous Sulfate 325 MG Tablet PO ×2 (12:40→17:25)
[2020-09-22 14:44] VITALS: BP 146/64; PULSE 54; RESP 16; TEMP 36.7; O2SAT 95
[2020-09-23 05:00] VITALS: BP 146/60; PULSE 59; RESP 16; TEMP 36.9; O2SAT 100
[2020-09-23] MEDS: Ranolazine 500 MG Tablet PO ×2 (05:23→17:21)
[2020-09-23] MEDS: Furosemide 40 MG Tablet PO (05:23)
[2020-09-23] MEDS: Atorvastatin Calcium 40 MG Tablet PO (05:23)
[2020-09-23] MEDS: Doxycycline 100 MG CAPSULE PO ×2 (05:23→17:21)
[2020-09-23] MEDS: Losartan Potassium 25 MG Tablet PO (05:23)
[2020-09-23] MEDS: Acetaminophen 500 MG Tablet 1000 MG PO ×3 (05:23→21:35)
[2020-09-23] MEDS: Pantoprazole Sodium 40 MG Tablet PO (05:23)
[2020-09-23] MEDS: Loratadine 10 MG Tablet PO (05:23)
[2020-09-23] MEDS: Cholecalciferol (VIT D3) 25 MCG TABLET (1,000 UNITS) 50 MCG PO (05:23)
[2020-09-23] MEDS: amLODIPine 10 MG Tablet PO (05:23)
[2020-09-23] MEDS: Nystatin Powder 15gm Bottle 1 APPLIC TOPICAL ×3 (05:25→21:36)
[2020-09-23] MEDS: Menthol/Lanolin/Calamine/Znox 113 GM Tube 1 APPLIC TOPICAL ×2 (05:25→17:23)
[2020-09-23] MEDS: Potassium Chloride Oral Tablet 10 MEQ 20 MEQ PO ×2 (07:52→17:22)
[2020-09-23] MEDS: Ferrous Sulfate 325 MG Tablet PO ×2 (11:20→17:22)
[2020-09-23 14:03] VITALS: BP 141/53; PULSE 60; RESP 14; TEMP 36.1; O2SAT 94
[2020-09-23 21:31] VITALS: PULSE 63; RESP 16; O2SAT 98
[2020-09-24] MEDS: Furosemide 40 MG Tablet PO (06:20)
[2020-09-24] MEDS: Ranolazine 500 MG Tablet PO ×2 (06:20→16:57)
[2020-09-24] MEDS: Losartan Potassium 25 MG Tablet PO (06:20)
[2020-09-24] MEDS: Doxycycline 100 MG CAPSULE PO ×2 (06:20→16:57)
[2020-09-24] MEDS: amLODIPine 10 MG Tablet PO (06:20)
[2020-09-24] MEDS: Pantoprazole Sodium 40 MG Tablet PO (06:20)
[2020-09-24] MEDS: Cholecalciferol (VIT D3) 25 MCG TABLET (1,000 UNITS) 50 MCG PO (06:20)
[2020-09-24] MEDS: Atorvastatin Calcium 40 MG Tablet PO (06:20)
[2020-09-24] MEDS: Loratadine 10 MG Tablet PO (06:20)
[2020-09-24] MEDS: Acetaminophen 500 MG Tablet 1000 MG PO ×2 (06:21→15:00)
[2020-09-24] MEDS: Nystatin Powder 15gm Bottle 1 APPLIC TOPICAL ×3 (06:22→22:29)
[2020-09-24] MEDS: Menthol/Lanolin/Calamine/Znox 113 GM Tube 1 APPLIC TOPICAL ×2 (06:23→16:56)
[2020-09-24 06:24] VITALS: BP 167/74; PULSE 63; RESP 16; TEMP 36.8; O2SAT 94
[2020-09-24] MEDS: Potassium Chloride Oral Tablet 10 MEQ 20 MEQ PO ×2 (08:51→16:55)
[2020-09-24] MEDS: BENZOCAINE/MENTHOL 1 LOZENGE MUCOUS MEM (09:39)
[2020-09-24 10:00] VITALS: PULSE 64; RESP 18; O2SAT 96
[2020-09-24] MEDS: Ferrous Sulfate 325 MG Tablet PO ×2 (11:32→16:55)
[2020-09-24] MEDS: oxyCODONE 5 MG Tablet PO ×2 (11:35→22:27)
[2020-09-24 14:11] VITALS: BP 134/56; PULSE 59; RESP 16; TEMP 36.6; O2SAT 98
[2020-09-25 05:00] VITALS: BP 154/65; PULSE 60; RESP 18; TEMP 36.8; O2SAT 94
[2020-09-25] MEDS: Doxycycline 100 MG CAPSULE PO ×2 (05:13→17:37)
[2020-09-25] MEDS: Polyethylene Glycol 3350 17 GM PACKET PO (05:13)
[2020-09-25] MEDS: Pantoprazole Sodium 40 MG Tablet PO (05:13)
[2020-09-25] MEDS: Ranolazine 500 MG Tablet PO ×2 (05:13→17:40)
[2020-09-25] MEDS: Loratadine 10 MG Tablet PO (05:13)
[2020-09-25] MEDS: Atorvastatin Calcium 40 MG Tablet PO (05:13)
[2020-09-25] MEDS: Losartan Potassium 25 MG Tablet PO (05:13)
[2020-09-25] MEDS: Furosemide 40 MG Tablet PO (05:13)
[2020-09-25] MEDS: Cholecalciferol (VIT D3) 25 MCG TABLET (1,000 UNITS) 50 MCG PO (05:13)
[2020-09-25] MEDS: Acetaminophen 500 MG Tablet 1000 MG PO ×3 (05:14→20:27)
[2020-09-25] MEDS: amLODIPine 10 MG Tablet PO (05:14)
[2020-09-25] MEDS: Menthol/Lanolin/Calamine/Znox 113 GM Tube 1 APPLIC TOPICAL ×2 (05:14→17:40)
[2020-09-25] MEDS: Nystatin Powder 15gm Bottle 1 APPLIC TOPICAL ×2 (05:14→20:27)
[2020-09-25] MEDS: Senna/Docusate Sodium 1 Tablet 2 TABLET PO ×2 (05:15→17:38)
[2020-09-25] MEDS: Potassium Chloride Oral Tablet 10 MEQ 20 MEQ PO ×2 (08:08→17:38)
[2020-09-25] MEDS: Ferrous Sulfate 325 MG Tablet PO ×2 (11:04→17:38)
--- NOTE | 2020-09-25 11:05 | NURSING ---
PNEUMONIA SHOT 23 GIVEN IN LEFT DELT. PT TOLERATED WELL.
--- NOTE | 2020-09-25 11:27 | NURSING ---
NO REACTION AT THIS TIME FROM THE PSV-23.
[2020-09-25 14:19] VITALS: BP 143/52; PULSE 62; RESP 18; TEMP 36.6; O2SAT 96
--- NOTE | 2020-09-25 16:28 | CHAPLAIN ---
Type of Pastoral Visit ___ Initial Visit _x__ Follow-up Visit ___ On-call Visit ___ General Patient Visit ___ Spiritual Assessment ___ Family Conference ___ Bereavement ___ Rapid Response ___ Code Blue ___ Other (describe below) Pastoral Care Referral From _x__ Patient ___ Family ___ Nurse ___ Physician ___ Program Assistant ___ Foundry Metallurgist ___ Other (describe below) Sacrament/Intervention _x__ Active listening ___ Anointing ___ Restorationism ___ Bereavement ___ Communion ___ Tyesha exploration ___ ___ Life review _x__ Prayer ___ Reconciliation ___ Sacrament of Sick ___ Supportive presence ___ Wedding ___ Other (describe below) Pastoral Comments follow up to patient seen in [facility]
[2020-09-26 05:43] LABS: Absolute Lymphocyte Count 1.08 X10^3/uL (0.83-4.51); Absolute Neutrophil Count 3.6 X10^3/uL (2.0-7.7); Basophil# 0.04 X10^3/uL; Basophil% 0.7 % (0-1); Eosinophil# 0.39 X10^3/uL; Eosinophils% 6.5 % (0-5); Hematocrit 32.3 % (37-47); Hemoglobin 10.2 g/dL (12.0-15.0); Lymphocyte # 1.08 X10^3/ul (0.83-4.51); Lymphocyte % 18.1 % (19-41); Mean Corp Hgb Conc 31.6 g/dL (32-36); Mean Corpuscular Hgb 29.8 pg (27.0-32.0); Mean Corpuscular Volume 94.4 fL (81-99); Mean Platelet Vol. 8.9 fl (6.2-12.0); Monocyte# 0.77 X10^3/uL; Monocyte% 12.9 % (0-10); NRBC Flagged by Analyzer 0 % (0-5); Neutrophil # 3.63 X10^3/uL (2.7-7.7); Neutrophil % 60.8 % (47-70); Platelet Count 426 K/mm3 (150-450); RBC Distribution Width CV 14.6 % (11.6-14.6); Red Blood Count 3.42 M/mm3 (4.2-5.4)
[2020-09-26 05:48] VITALS: BP 164/69; PULSE 61; RESP 17; TEMP 36.7; O2SAT 96
[2020-09-26] MEDS: Nystatin Powder 15gm Bottle 1 APPLIC TOPICAL ×3 (05:50→20:19)
[2020-09-26] MEDS: Menthol/Lanolin/Calamine/Znox 113 GM Tube 1 APPLIC TOPICAL ×2 (05:50→17:35)
[2020-09-26] MEDS: Cholecalciferol (VIT D3) 25 MCG TABLET (1,000 UNITS) 50 MCG PO (05:51)
[2020-09-26] MEDS: Furosemide 40 MG Tablet PO (05:51)
[2020-09-26] MEDS: Acetaminophen 500 MG Tablet 1000 MG PO ×3 (05:51→20:18)
[2020-09-26] MEDS: amLODIPine 10 MG Tablet PO (05:51)
[2020-09-26] MEDS: Atorvastatin Calcium 40 MG Tablet PO (05:51)
[2020-09-26] MEDS: Pantoprazole Sodium 40 MG Tablet PO (05:51)
[2020-09-26] MEDS: Ranolazine 500 MG Tablet PO ×2 (05:51→17:34)
[2020-09-26] MEDS: APIXABAN 2.5 MG TABLET PO ×2 (05:52→17:34)
[2020-09-26] MEDS: Loratadine 10 MG Tablet PO (05:52)
[2020-09-26] MEDS: Doxycycline 100 MG CAPSULE PO ×2 (05:52→17:34)
[2020-09-26] MEDS: Losartan Potassium 25 MG Tablet PO (05:52)
[2020-09-26 05:58] LABS: Anion Gap 4 (5-15); BUN 18 mg/dL (7-18); BUN/Creat Ratio 25.8 RATIO (10-20); Calcium,Total 9.1 mg/dL (8.5-10.1); Chloride 103 mmol/L (98-107); EST Glomerular Filtration Rate 85 mL/min (>60); Est Glom Filt Rate - Afr Amer 103 mL/min (>60); Estimated Creatinine Clearance 30.62 ml/min; Glucose 103 mg/dL (74-106); Potassium 4.3 mmol/L (3.5-5.1); Sodium Level 137 mmol/L (136-145)
[2020-09-26] MEDS: Potassium Chloride Oral Tablet 10 MEQ 20 MEQ PO ×2 (08:32→17:34)
--- NOTE | 2020-09-26 10:00 | CASEMGMT ---
Social Work Plan of care meeting held. Patient present as well as patient granddaughter, Sabine and [id number], Lexii. No discharge date set. Patient to continue with further care and treatment on the Transitional Care Unit. Patient with next insurance update due on 10/01/2020. This social services director educated patient and patient family that continued stay approval is not guaranteed but that insurance must provide a three day notice of discontinuation of services. Patient plans to return to home with family where patient has 29/09 care. Patient was active with [facility] prior to admission to hospital and now SNF and would like to continue with [facility] at discharge as is recommended. Support provided. Will continue to follow. Trista Santizo MSW, DANAY
[2020-09-26] MEDS: Tuberculin,Purif.prot.deriv. 50 TU/ML Vial 0.1 ML ID (10:27)
[2020-09-26] MEDS: Ferrous Sulfate 325 MG Tablet PO ×2 (10:29→17:35)
--- NOTE | 2020-09-26 14:05 | MDS.RN ---
Information for the mds was obtained from review of the clinical record, interview of resident, staff, and direct observation of resident's care.
--- NOTE | 2020-09-26 14:40 | NURSING ---
wound photo: right lateral thigh
[2020-09-26 15:01] VITALS: BP 148/59; PULSE 64; RESP 16; TEMP 36.9; O2SAT 96
[2020-09-26] MEDS: oxyCODONE 5 MG Tablet PO (20:18)
[2020-09-27 04:43] VITALS: BP 170/50; PULSE 78; RESP 18; TEMP 36.7; O2SAT 93
[2020-09-27] MEDS: Menthol/Lanolin/Calamine/Znox 113 GM Tube 1 APPLIC TOPICAL ×2 (04:51→17:41)
[2020-09-27] MEDS: Losartan Potassium 25 MG Tablet PO (04:52)
[2020-09-27] MEDS: Loratadine 10 MG Tablet PO (04:52)
[2020-09-27] MEDS: Pantoprazole Sodium 40 MG Tablet PO (04:52)
[2020-09-27] MEDS: Atorvastatin Calcium 40 MG Tablet PO (04:52)
[2020-09-27] MEDS: Acetaminophen 500 MG Tablet 1000 MG PO ×2 (04:52→13:45)
[2020-09-27] MEDS: Doxycycline 100 MG CAPSULE PO ×2 (04:52→17:38)
[2020-09-27] MEDS: Furosemide 40 MG Tablet PO (04:52)
[2020-09-27] MEDS: Ranolazine 500 MG Tablet PO ×2 (04:53)
[2020-09-27] MEDS: APIXABAN 2.5 MG TABLET PO ×2 (04:53→17:38)
[2020-09-27] MEDS: amLODIPine 10 MG Tablet PO (04:53)
[2020-09-27] MEDS: Nystatin Powder 15gm Bottle 1 APPLIC TOPICAL ×3 (04:54→19:52)
[2020-09-27] MEDS: Cholecalciferol (VIT D3) 25 MCG TABLET (1,000 UNITS) 50 MCG PO (04:54)
[2020-09-27] MEDS: Juven (unflavored) Packet 1 PACKET PO ×2 (08:19→17:38)
[2020-09-27] MEDS: Potassium Chloride Oral Tablet 10 MEQ 20 MEQ PO ×2 (08:19→17:38)
[2020-09-27] MEDS: Ferrous Sulfate 325 MG Tablet PO ×2 (11:11→17:38)
--- NOTE | 2020-09-27 17:07 | NURSING ---
Pt painful with dressing changes and is scheduled to have shower done tomorrow, this nurse talked with wound nurse and OT and staff is requesting pt receive her pain medication and breakfast after her morning shower and before wound nurse changes wound Vac.
[2020-09-27 18:48] VITALS: BP 139/64; PULSE 63; RESP 16; TEMP 37.1; O2SAT 95
[2020-09-27] MEDS: oxyCODONE 5 MG Tablet PO (19:51)
[2020-09-27 22:57] VITALS: PULSE 65; O2SAT 97
[2020-09-28 05:00] VITALS: BP 150/62; PULSE 63; RESP 18; O2SAT 92
[2020-09-28] MEDS: Doxycycline 100 MG CAPSULE PO ×2 (05:35→17:11)
[2020-09-28] MEDS: Polyethylene Glycol 3350 17 GM PACKET PO (05:35)
[2020-09-28] MEDS: Furosemide 40 MG Tablet PO (05:35)
[2020-09-28] MEDS: Cholecalciferol (VIT D3) 25 MCG TABLET (1,000 UNITS) 50 MCG PO (05:35)
[2020-09-28] MEDS: APIXABAN 2.5 MG TABLET PO ×2 (05:35→17:09)
[2020-09-28] MEDS: Losartan Potassium 25 MG Tablet PO (05:35)
[2020-09-28] MEDS: Pantoprazole Sodium 40 MG Tablet PO (05:35)
[2020-09-28] MEDS: amLODIPine 10 MG Tablet PO (05:35)
[2020-09-28] MEDS: Atorvastatin Calcium 40 MG Tablet PO (05:35)
[2020-09-28] MEDS: Loratadine 10 MG Tablet PO (05:35)
[2020-09-28] MEDS: Acetaminophen 500 MG Tablet 1000 MG PO ×3 (05:35→22:29)
[2020-09-28] MEDS: Ranolazine 500 MG Tablet PO ×2 (05:35→17:09)
[2020-09-28] MEDS: Menthol/Lanolin/Calamine/Znox 113 GM Tube 1 APPLIC TOPICAL ×2 (05:36→17:17)
[2020-09-28] MEDS: Nystatin Powder 15gm Bottle 1 APPLIC TOPICAL ×2 (05:36→13:27)
[2020-09-28] MEDS: Potassium Chloride Oral Tablet 10 MEQ 20 MEQ PO ×2 (08:46→17:12)
[2020-09-28] MEDS: Juven (unflavored) Packet 1 PACKET PO ×2 (08:47→17:08)
[2020-09-28] MEDS: oxyCODONE 5 MG Tablet PO ×2 (08:52→22:40)
[2020-09-28] MEDS: Ferrous Sulfate 325 MG Tablet PO ×2 (11:43→17:12)
--- NOTE | 2020-09-28 15:17 | NURSING ---
ARACELI CHAVEZ/WOUND NURSE CHANGED WOUND VAC.
[2020-09-28 15:56] VITALS: BP 138/48; PULSE 75; RESP 18; TEMP 36.3; O2SAT 98
[2020-09-28 17:17] VITALS: PULSE 60
[2020-09-29 05:15] VITALS: BP 133/55; PULSE 55; RESP 16; TEMP 36.6; O2SAT 94
[2020-09-29] MEDS: APIXABAN 2.5 MG TABLET PO ×2 (05:18→17:09)
[2020-09-29] MEDS: Furosemide 40 MG Tablet PO (05:18)
[2020-09-29] MEDS: Ranolazine 500 MG Tablet PO ×2 (05:18→17:10)
[2020-09-29] MEDS: Losartan Potassium 25 MG Tablet PO (05:18)
[2020-09-29] MEDS: Cholecalciferol (VIT D3) 25 MCG TABLET (1,000 UNITS) 50 MCG PO (05:18)
[2020-09-29] MEDS: amLODIPine 10 MG Tablet PO (05:18)
[2020-09-29] MEDS: Acetaminophen 500 MG Tablet 1000 MG PO ×3 (05:18→21:19)
[2020-09-29] MEDS: Atorvastatin Calcium 40 MG Tablet PO (05:18)
[2020-09-29] MEDS: Doxycycline 100 MG CAPSULE PO ×2 (05:18→17:09)
[2020-09-29] MEDS: Senna/Docusate Sodium 1 Tablet 2 TABLET PO (05:18)
[2020-09-29] MEDS: Loratadine 10 MG Tablet PO (05:19)
[2020-09-29] MEDS: Pantoprazole Sodium 40 MG Tablet PO (05:19)
[2020-09-29] MEDS: Nystatin Powder 15gm Bottle 1 APPLIC TOPICAL ×3 (05:21→21:18)
[2020-09-29] MEDS: Menthol/Lanolin/Calamine/Znox 113 GM Tube 1 APPLIC TOPICAL ×2 (05:22→17:10)
[2020-09-29] MEDS: Potassium Chloride Oral Tablet 10 MEQ 20 MEQ PO ×2 (08:41→17:10)
[2020-09-29] MEDS: Juven (unflavored) Packet 1 PACKET PO ×2 (08:41→17:07)
[2020-09-29] MEDS: Ferrous Sulfate 325 MG Tablet PO ×2 (11:56→17:09)
[2020-09-29 14:30] VITALS: BP 137/55; PULSE 58; RESP 16; TEMP 36.6; O2SAT 97
[2020-09-30 05:17] VITALS: BP 173/65; PULSE 58; RESP 16; TEMP 36.4; O2SAT 95
[2020-09-30] MEDS: APIXABAN 2.5 MG TABLET PO ×2 (05:18→17:31)
[2020-09-30] MEDS: Ranolazine 500 MG Tablet PO ×2 (05:19→17:49)
[2020-09-30] MEDS: Furosemide 40 MG Tablet PO (05:19)
[2020-09-30] MEDS: Cholecalciferol (VIT D3) 25 MCG TABLET (1,000 UNITS) 50 MCG PO (05:19)
[2020-09-30] MEDS: Doxycycline 100 MG CAPSULE PO ×2 (05:20→17:31)
[2020-09-30] MEDS: Atorvastatin Calcium 40 MG Tablet PO (05:20)
[2020-09-30] MEDS: Loratadine 10 MG Tablet PO (05:20)
[2020-09-30] MEDS: Acetaminophen 500 MG Tablet 1000 MG PO ×3 (05:20→21:40)
[2020-09-30] MEDS: Losartan Potassium 25 MG Tablet PO (05:21)
[2020-09-30] MEDS: Pantoprazole Sodium 40 MG Tablet PO (05:21)
[2020-09-30] MEDS: amLODIPine 10 MG Tablet PO (05:21)
[2020-09-30] MEDS: Menthol/Lanolin/Calamine/Znox 113 GM Tube 1 APPLIC TOPICAL ×2 (05:23→17:31)
[2020-09-30] MEDS: Nystatin Powder 15gm Bottle 1 APPLIC TOPICAL ×3 (05:24→21:40)
[2020-09-30] MEDS: Juven (unflavored) Packet 1 PACKET PO ×2 (08:53→17:30)
[2020-09-30] MEDS: Potassium Chloride Oral Tablet 10 MEQ 20 MEQ PO ×2 (08:53→17:31)
[2020-09-30] MEDS: Ferrous Sulfate 325 MG Tablet PO ×2 (11:16→17:30)
[2020-09-30 15:32] VITALS: BP 163/69; PULSE 53; RESP 16; TEMP 36.8; O2SAT 97
--- NOTE | 2020-09-30 20:00 | NURSING ---
Thrush noted upon oral assessment. Pt declines treatment with any medication. Instructed to increase fluids, especially water, and perform good oral care to prevent worsening if symptoms. Instructed to notify staff if any discomfort noted in mouth and/or appetite decreases.
[2020-10-01 05:00] VITALS: BP 164/66; PULSE 55; RESP 16; TEMP 36.6; O2SAT 97
[2020-10-01] MEDS: Losartan Potassium 25 MG Tablet PO (06:12)
[2020-10-01] MEDS: Pantoprazole Sodium 40 MG Tablet PO (06:12)
[2020-10-01] MEDS: APIXABAN 2.5 MG TABLET PO ×2 (06:12→17:45)
[2020-10-01] MEDS: Furosemide 40 MG Tablet PO (06:12)
[2020-10-01] MEDS: Doxycycline 100 MG CAPSULE PO ×2 (06:12→17:47)
[2020-10-01] MEDS: Acetaminophen 500 MG Tablet 1000 MG PO ×3 (06:12→21:29)
[2020-10-01] MEDS: Atorvastatin Calcium 40 MG Tablet PO (06:12)
[2020-10-01] MEDS: amLODIPine 10 MG Tablet PO (06:12)
[2020-10-01] MEDS: Loratadine 10 MG Tablet PO (06:12)
[2020-10-01] MEDS: Cholecalciferol (VIT D3) 25 MCG TABLET (1,000 UNITS) 50 MCG PO (06:12)
[2020-10-01] MEDS: Ranolazine 500 MG Tablet PO ×2 (06:14→17:45)
[2020-10-01] MEDS: Nystatin Powder 15gm Bottle 1 APPLIC TOPICAL ×3 (06:15→21:30)
[2020-10-01] MEDS: Menthol/Lanolin/Calamine/Znox 113 GM Tube 1 APPLIC TOPICAL ×2 (06:16→17:47)
[2020-10-01] MEDS: Potassium Chloride Oral Tablet 10 MEQ 20 MEQ PO ×2 (08:39→17:45)
[2020-10-01] MEDS: Juven (unflavored) Packet 1 PACKET PO ×2 (08:39→17:43)
[2020-10-01] MEDS: oxyCODONE 5 MG Tablet PO (11:29)
[2020-10-01] MEDS: Ferrous Sulfate 325 MG Tablet PO ×2 (11:30→17:45)
[2020-10-01 14:04] VITALS: BP 150/75; PULSE 52; RESP 14; TEMP 36.7; O2SAT 94
--- NOTE | 2020-10-01 14:05 | NURSING ---
wound photo: right lateral thigh
--- NOTE | 2020-10-01 16:22 | CASEMGMT ---
Social Work Determination by insurance stating pt Last Covered Day is 10/03/20 with discharge 10/04/20. SW met with pt and explained and pt is pleased with determination and feelsl she can return home with family on 10/04. Pt states she normally lives with her granddaughter but believes she will be going home with her son and daughter in law and they are able to assist as needed. Pt will go home with a wound vac and pt is aware of this. Therapy is recommending continued home PT/OT and pt is agreeable with this. Pt is active with [facility] and would like home health services resumed through this company. Pt will need a Bharath walker at discharge and would like this arranged through [employer]. CRISTIANE left with Amanda Townsend RN in regards to home wound vac. DEJAN requested to phone pt family to confirm d/c plans. Pt declines stating Daughter in Law will be in this afternoon and pt will speak with her. D/C date: 10/04/20 D/C disposition: Home with family. Home health PT/OT/SN and wound vac HALEY Stiles
--- NOTE | 2020-10-01 19:21 | PCM.DC.SUM ---
Providers Date of Admission: 09/18/20 Primary Care Physician: Dr. 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 Routine Comment: Reason For Visit: HEMATOMA Diagnosis Discharge Diagnosis (1) Debility: Status: Acute Code(s): R53.81 - Other malaise (2) Traumatic hematoma of right hip: Code(s): S70.01XA - Contusion of right hip, initial encounter (3) Hyponatremia: Status: Acute Code(s): E87.1 - Hypo-osmolality and hyponatremia (4) Hypokalemia: Status: Acute Code(s): E87.6 - Hypokalemia (5) Right humeral fracture: Status: Acute Code(s): S42.301A - Unspecified fracture of shaft of humerus, right arm, initial encounter for closed fracture (6) Acute anemia: Status: Acute Code(s): D64.9 - Anemia, unspecified (7) Atrial fibrillation: Status: Acute Code(s): I48.91 - Unspecified atrial fibrillation (8) Bradycardia: Status: Acute Code(s): R00.1 - Bradycardia, unspecified (9) Coronary artery disease: Status: Acute Code(s): I25.10 - Atherosclerotic heart disease of [place] coronary artery without angina pectoris (10) Aortic stenosis: Status: Acute Code(s): I35.0 - Nonrheumatic aortic (valve) stenosis (11) Orthostatic hypotension: Status: Acute Code(s): I95.1 - Orthostatic hypotension (12) Vitamin D deficiency: Status: Acute Code(s): E55.9 - Vitamin D deficiency, unspecified (13) Hypertension: Status: Chronic Code(s): I10 - Essential (primary) hypertension (14) Gout: Status: Acute Code(s): M10.9 - Gout, unspecified (15) Osteoarthritis: Status: Acute Code(s): M19.90 - Unspecified osteoarthritis, unspecified site (16) Fibromyalgia: Status: Acute Code(s): M79.7 - Fibromyalgia Medications at Discharge Home Medications acetaminophen [Tylenol Extra Strength] 1,000 mg PO TID 09/12/20 amlodipine 10 mg PO DAILY 09/12/20 atorvastatin 40 mg PO DAILY 09/12/20 cholecalciferol (vitamin D3) [Vitamin D3] 50 mcg PO DAILY 09/12/20 furosemide 40 mg PO DAILY 09/12/20 pantoprazole [Protonix] 40 mg PO DAILY 09/12/20 ranolazine [Ranexa] 500 mg PO BID 09/12/20 valsartan 80 mg PO DAILY 09/12/20 Eliquis 2.5 mg PO BID #0 tab 09/18/20 ferrous sulfate [Iron (ferrous sulfate)] 325 mg PO BID 09/18/20 melatonin 3 mg PO QHS PRN PRN #0 tab 09/18/20 nystatin [Nyamyc] 1 applic TOPICAL TID 09/18/20 potassium chloride 20 meq PO BID #0 cap 09/18/20 soize-ewhu-[id number]-[id number]-vk-olu [Nabil (with collagen)] 1 ea PO BIDCM 30 Days #60 ea 10/01/20 loratadine [Allergy Relief (loratadine)] 10 mg PO DAILY #0 tab 10/01/20 menthol-zinc oxide [Calmoseptine] 1 applic TOPICAL BID #0 g 10/01/20 oxycodone 5 mg PO Q4H PRN PRN 7 Days #42 tab 10/01/20 polyethylene glycol 3350 17 g PO DAILY 30 Days #30 ea 10/01/20 sennosides-docusate sodium [Stool Softener-Stimulant Laxat] 2 tab PO BID 30 Days #120 tab 10/01/20 Hospital Course Operations - (I&D right hip hematoma.) Procedures None Summary of Care Provided Minutes Spent on Discharge: 35 Hospital Course: 85 year old female with below past medical history significant recent right humerus fracture, hospitalized for traumatic hematoma right hip, underwent incision/drainage 09/14/[address] Oh with application of wound VAC, complicated by hyponatremia, hypokalemia, acute anemia, admitted to TCU with debility, here for rehabilitation, strengthening, wound care, prior to discharge home with family. Discharge home with family 10/04/2020, Home Health PT/OT/SN, Wound VAC. Physical Exam Const alert and oriented x3 General Appearance: cooperative HEENT normocephalic Eyes PERRL and EOMs intact bilaterally Neck supple, no JVD and no carotid bruits Resp normal respiratory effort, normal air movement and clear to auscultation bilaterally Cardio regular rate and regular rhythm GI normal to inspection, nondistended, normoactive bowel sounds, non-tender and non-distended Extremity normal capillary refill General Extremity: Negative for edema Skin no rashes or lesions noted Skin Narrative: Wound VAC right hip. General Skin Exam: no breakdown Psych affect normal Appearance: appropriate Weight / BMI Weight Weight: 90.293 kg Body Mass Index (BMI) 39.5 ABG / Lab / Microbiology Data Result Diagrams: 09/26/20 05:10 09/26/20 05:10 Microbiology: Microbiology 09/19/20 15:38 Mucosa - Nose SARS-CoV-2 Antigen (Rapid) - Final D/C Instructions Discharge Diet: No restrictions Discharge Activity: Return to Normal Activity, May Shower and Use Walker Weight Bearing Status: Weight bearing as tolerated Call your doctor if you observe: Fever of 101 or Higher, Inability to urinate, Inability to have a bowel movement, Shortness of breath, Dizziness, Fainting spells, Swelling in the ankles, Chest pain, Increased palpitations (irregular heartbeat) and Uncontrolled pain Additional Instructions: Discharge home with family 10/04/2020, Home Health PT/OT/SN, Wound VAC. Please Follow Up With: Dr. Yun When: 1 week. Meaningful Use Info Meaningful Use Diagnoses (Choose all that apply): None applicable Discharge Plan Admission Admit Date/Time: 09/18/20 18:20 Primary Reason for Your Visit: Debility Attending Provider: Yonny Max Chi Primary Care Provider: Herson Zuniga Instructions Additional Instructions / Restrictions: Discharge home with family 10/04/2020, Home Health PT/OT/SN, Wound VAC. Discharge Orders/Prescriptions Prescriptions: New oxycodone 5 mg Tablet 5 mg PO Q4H PRN PRN (Reason: Pain Score 4-10) 7 Days Qty: 42 RF: 0 Nabil (with collagen) 7-7-1.5 gram Powder In Packet 1 ea PO BIDCM 30 Days Qty: 60 RF: 0 loratadine [Allergy Relief (loratadine)] 10 mg Tablet 10 mg PO DAILY Qty: 0 RF: 0 menthol-zinc oxide [Calmoseptine] 0.44-20.6 % Ointment 1 applic topical BID Qty: 0 RF: 0 polyethylene glycol 3350 17 gram Powder In Packet 17 g PO DAILY 30 Days Qty: 30 RF: 0 sennosides-docusate sodium [Stool Softener-Stimulant Laxat] 8.6-50 mg Tablet 2 tab PO BID 30 Days Qty: 120 RF: 0 Continued acetaminophen [Tylenol Extra Strength] 500 mg Tablet 1,000 mg PO TID RF: 0 amlodipine 10 mg Tablet 10 mg PO DAILY RF: 0 pantoprazole [Protonix] 40 mg Tablet,Delayed Release (Dr/Ec) 40 mg PO DAILY RF: 0 ranolazine [Ranexa] 500 mg Tablet Extended Release 12 Hr 500 mg PO BID RF: 0 furosemide 40 mg Tablet 40 mg PO DAILY RF: 0 atorvastatin 40 mg Tablet 40 mg PO DAILY RF: 0 valsartan 80 mg Tablet 80 mg PO DAILY RF: 0 cholecalciferol (vitamin D3) [Vitamin D3] 50 mcg (2,000 unit) Capsule 50 mcg PO DAILY RF: 0 melatonin 3 mg Tablet 3 mg PO QHS PRN PRN (Reason: Insomnia) Qty: 0 RF: 0 potassium chloride 10 mEq Capsule, Extended Release 20 meq PO BID Qty: 0 RF: 0 Eliquis 5 mg Tablet 2.5 mg PO BID Qty: 0 RF: 0 ferrous sulfate [Iron (ferrous sulfate)] 325 mg (65 mg iron) tablet 325 mg PO BID RF: 0 nystatin [Nyamyc] 100,000 unit/gram powder 1 applic topical TID RF: 0 Discontinued hydrochlorothiazide 25 mg Tablet 25 mg PO DAILY RF: 0 diphenhydramine HCl [Benadryl] 25 mg Capsule 25 mg PO DAILY RF: 0 oxycodone 5 mg Tablet 5 mg PO Q4H PRN PRN (Reason: Pain Score 4-10) 2 Days Qty: 10 RF: 0 Referrals / Follow Up: Herson Zuniga DO [Primary Care Provider] - Disposition Disposition (needs filled in before D/C Order can be placed): Home Health Service
[2020-10-01 21:47] VITALS: PULSE 50; RESP 16; O2SAT 93
[2020-10-02 05:00] VITALS: BP 149/63; PULSE 58; RESP 16; TEMP 36.7; O2SAT 94
[2020-10-02] MEDS: Atorvastatin Calcium 40 MG Tablet PO (05:29)
[2020-10-02] MEDS: Losartan Potassium 25 MG Tablet PO (05:29)
[2020-10-02] MEDS: Acetaminophen 500 MG Tablet 1000 MG PO ×2 (05:29→13:42)
[2020-10-02] MEDS: amLODIPine 10 MG Tablet PO (05:29)
[2020-10-02] MEDS: Furosemide 40 MG Tablet PO (05:29)
[2020-10-02] MEDS: Ranolazine 500 MG Tablet PO ×2 (05:29→17:34)
[2020-10-02] MEDS: Doxycycline 100 MG CAPSULE PO ×2 (05:29→17:36)
[2020-10-02] MEDS: Cholecalciferol (VIT D3) 25 MCG TABLET (1,000 UNITS) 50 MCG PO (05:29)
[2020-10-02] MEDS: Loratadine 10 MG Tablet PO (05:29)
[2020-10-02] MEDS: APIXABAN 2.5 MG TABLET PO ×2 (05:29→17:34)
[2020-10-02] MEDS: Pantoprazole Sodium 40 MG Tablet PO (05:29)
[2020-10-02] MEDS: Menthol/Lanolin/Calamine/Znox 113 GM Tube 1 APPLIC TOPICAL ×2 (05:31→17:37)
[2020-10-02] MEDS: Nystatin Powder 15gm Bottle 1 APPLIC TOPICAL ×3 (05:32→20:26)
[2020-10-02] MEDS: Potassium Chloride Oral Tablet 10 MEQ 20 MEQ PO ×2 (09:05→17:33)
[2020-10-02] MEDS: Juven (unflavored) Packet 1 PACKET PO ×2 (09:05→17:32)
[2020-10-02 10:00] VITALS: PULSE 55; RESP 18; O2SAT 97
[2020-10-02] MEDS: Ferrous Sulfate 325 MG Tablet PO ×2 (11:44→17:33)
--- NOTE | 2020-10-02 12:56 | CASEMGMT ---
Social Work Referral made to [facility] for PT/OT/SN and they are able to accept with start of care on 10/05/20. Script for Bharath walker to be faxed to [facility] when obtained and bharath walker will be delivered to pt room. Pt Daughter In Law did speak with SW and verified that pt will be returning to their home and they are able to assist as needed. Braxton Townsend RN confirms home Wound Vac will be ready for pt to discharge on . No further d/c needs. Plan: D/C home with son and daughter in law. Home health PT/OT/SN. Wound Vac. HALEY Goldberg
--- NOTE | 2020-10-02 13:12 | NURSING ---
Home VAC paperwork all faxed to [phone]. awaiting approval. planned discharge is 10/04/20. next VAC change will be 10/03/20.
[2020-10-02 13:31] VITALS: BP 134/58; PULSE 58; RESP 18; TEMP 36.9; O2SAT 95
[2020-10-02 17:37] VITALS: PULSE 60
[2020-10-02] MEDS: oxyCODONE 5 MG Tablet PO (20:25)
[2020-10-03 05:00] VITALS: BP 151/60; PULSE 55; RESP 18; O2SAT 93
[2020-10-03] MEDS: APIXABAN 2.5 MG TABLET PO ×2 (05:22→17:35)
[2020-10-03] MEDS: Doxycycline 100 MG CAPSULE PO ×2 (05:22→17:36)
[2020-10-03] MEDS: Pantoprazole Sodium 40 MG Tablet PO (05:22)
[2020-10-03] MEDS: Cholecalciferol (VIT D3) 25 MCG TABLET (1,000 UNITS) 50 MCG PO (05:22)
[2020-10-03] MEDS: Losartan Potassium 25 MG Tablet PO (05:22)
[2020-10-03] MEDS: Loratadine 10 MG Tablet PO (05:22)
[2020-10-03] MEDS: amLODIPine 10 MG Tablet PO (05:22)
[2020-10-03] MEDS: Nystatin Powder 15gm Bottle 1 APPLIC TOPICAL ×3 (05:22→22:04)
[2020-10-03] MEDS: Acetaminophen 500 MG Tablet 1000 MG PO ×3 (05:22→21:39)
[2020-10-03] MEDS: Furosemide 40 MG Tablet PO (05:22)
[2020-10-03] MEDS: Atorvastatin Calcium 40 MG Tablet PO (05:22)
[2020-10-03] MEDS: Ranolazine 500 MG Tablet PO ×2 (05:22→17:36)
[2020-10-03] MEDS: Menthol/Lanolin/Calamine/Znox 113 GM Tube 1 APPLIC TOPICAL ×2 (05:23→17:37)
[2020-10-03 05:35] LABS: Absolute Lymphocyte Count 1.09 X10^3/uL (0.83-4.51); Absolute Neutrophil Count 4.1 X10^3/uL (2.0-7.7); Basophil# 0.03 X10^3/uL; Basophil% 0.4 % (0-1); Eosinophil# 0.59 X10^3/uL; Eosinophils% 8.8 % (0-5); Hematocrit 31.5 % (37-47); Hemoglobin 9.8 g/dL (12.0-15.0); Lymphocyte # 1.09 X10^3/ul (0.83-4.51); Lymphocyte % 16.2 % (19-41); Mean Corp Hgb Conc 31.1 g/dL (32-36); Mean Corpuscular Hgb 28.9 pg (27.0-32.0); Mean Corpuscular Volume 92.9 fL (81-99); Monocyte# 0.89 X10^3/uL; Monocyte% 13.3 % (0-10); NRBC Flagged by Analyzer 0 % (0-5); Neutrophil # 4.08 X10^3/uL (2.7-7.7); Neutrophil % 60.9 % (47-70); Platelet Count 408 K/mm3 (150-450); RBC Distribution Width CV 14.5 % (11.6-14.6); RBC Distribution Width SD 50.1 fl (35.1-43.9); Red Blood Count 3.39 M/mm3 (4.2-5.4); White Blood Count 6.7 K/mm3 (4.4-11.0)
[2020-10-03 05:52] LABS: Anion Gap 5 (5-15); BUN 31 mg/dL (7-18); BUN/Creat Ratio 48.7 RATIO (10-20); Calcium,Total 8.8 mg/dL (8.5-10.1); Chloride 103 mmol/L (98-107); Creatinine, Serum 0.64 mg/dL (0.55-1.02); EST Glomerular Filtration Rate 95 mL/min (>60); Est Glom Filt Rate - Afr Amer 115 mL/min (>60); Estimated Creatinine Clearance 30.62 ml/min; Glucose 101 mg/dL (74-106); Potassium 4.3 mmol/L (3.5-5.1); Sodium Level 136 mmol/L (136-145)
[2020-10-03] MEDS: Potassium Chloride Oral Tablet 10 MEQ 20 MEQ PO ×2 (08:15→17:36)
[2020-10-03] MEDS: Juven (unflavored) Packet 1 PACKET PO ×2 (08:15→17:35)
[2020-10-03] MEDS: Ferrous Sulfate 325 MG Tablet PO ×2 (11:28→17:36)
[2020-10-03 13:22] VITALS: BP 123/66; PULSE 55; RESP 18; TEMP 36.7; O2SAT 98
[2020-10-03] MEDS: MELATONIN 3 MG TABLET PO (21:39)
[2020-10-03 22:00] VITALS: RESP 16
[2020-10-04] MEDS: Losartan Potassium 25 MG Tablet PO (06:20)
[2020-10-04] MEDS: Loratadine 10 MG Tablet PO (06:20)
[2020-10-04] MEDS: Ranolazine 500 MG Tablet PO (06:20)
[2020-10-04] MEDS: APIXABAN 2.5 MG TABLET PO (06:20)
[2020-10-04] MEDS: Acetaminophen 500 MG Tablet 1000 MG PO (06:20)
[2020-10-04] MEDS: Pantoprazole Sodium 40 MG Tablet PO (06:20)
[2020-10-04] MEDS: amLODIPine 10 MG Tablet PO (06:21)
[2020-10-04] MEDS: Doxycycline 100 MG CAPSULE PO (06:21)
[2020-10-04] MEDS: Nystatin Powder 15gm Bottle 1 APPLIC TOPICAL (06:21)
[2020-10-04] MEDS: Atorvastatin Calcium 40 MG Tablet PO (06:21)
[2020-10-04] MEDS: Cholecalciferol (VIT D3) 25 MCG TABLET (1,000 UNITS) 50 MCG PO (06:30)
[2020-10-04] MEDS: Menthol/Lanolin/Calamine/Znox 113 GM Tube 1 APPLIC TOPICAL (06:31)
[2020-10-04] MEDS: Furosemide 40 MG Tablet PO (06:32)
[2020-10-04 06:51] VITALS: BP 155/54; PULSE 54; RESP 16; TEMP 36.6; O2SAT 95
[2020-10-04] MEDS: Potassium Chloride Oral Tablet 10 MEQ 20 MEQ PO (08:04)
[2020-10-04] MEDS: Juven (unflavored) Packet 1 PACKET PO (08:04)
[2020-10-04 10:51] VITALS: BP 135/72; PULSE 54; RESP 16; TEMP 36.7
== END 2020-10-04 10:45 | disposition home health service (06) | DRG 950 ==
PROVIDERS: Admitting Provider Family Medicine Geriatric Medicine; PCP Student in an Organized Health Care Education/Training Program; Visit Provider Family Medicine Geriatric Medicine
DX: Z48.817 Encounter for surgical aftercare following surgery on the skin and subcutaneous tissue (principal); S70.01XD Contusion of right hip, subsequent encounter; I48.91 Unspecified atrial fibrillation; E87.6 Hypokalemia; K21.9 Gastro-esophageal reflux disease without esophagitis; I25.10 Atherosclerotic heart disease of native coronary artery without angina pectoris; D50.9 Iron deficiency anemia, unspecified; E78.5 Hyperlipidemia, unspecified; E55.9 Vitamin D deficiency, unspecified; S42.301D Unspecified fracture of shaft of humerus, right arm, subsequent encounter for fracture with routine healing; Z23 Encounter for immunization; X58.XXXD Exposure to other specified factors, subsequent encounter; I12.9 Hypertensive chronic kidney disease with stage 1 through stage 4 chronic kidney disease, or unspecified chronic kidney disease; N18.31 Chronic kidney disease, stage 3a; M79.7 Fibromyalgia; M19.90 Unspecified osteoarthritis, unspecified site; Z79.899 Other long term (current) drug therapy; Z79.01 Long term (current) use of anticoagulants; B35.4 Tinea corporis
CPT/HCPCS: 36415; 80048; 85025; 87426; 90732; 92523; 97110; 97116; 97162; 97166; 97530; 97535; 97802; G0009

== ENCOUNTER 2020-11-26 09:30 | Outpatient (RCR) | payer MEDICARE, SELFPAY ==
[2020-10-07 00:37] VITALS: BP 140/67; PULSE 68; RESP 16; TEMP 36.2
[2020-11-19 08:23] VITALS: BP 160/80; PULSE 68; RESP 18; TEMP 36.6; BMI 39.5
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
[2020-11-26 09:24] VITALS: TEMP 36.2; BMI 39.5
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
== END 2020-12-06 23:59 ==
LOC: WC 09:30
PROVIDERS: PCP Student in an Organized Health Care Education/Training Program; Visit Provider Nurse Practitioner Family
DX: L97.112 Non-pressure chronic ulcer of right thigh with fat layer exposed (principal); S70.11XS Contusion of right thigh, sequela; V00.8 Accident on other pedestrian conveyance; I48.0 Paroxysmal atrial fibrillation; I35.0 Nonrheumatic aortic (valve) stenosis; E66.9 Obesity, unspecified; Z68.39 Body mass index [BMI] 39.0-39.9, adult; Z79.01 Long term (current) use of anticoagulants; Z79.899 Other long term (current) drug therapy; Z96.641 Presence of right artificial hip joint
CPT/HCPCS: 11042

== ENCOUNTER 2020-12-02 09:13 | Emergency (ER) | payer MEDICARE, SELFPAY ==
[2020-12-02 09:14] VITALS: BP 165/70; PULSE 77; RESP 18; TEMP 36.4; O2SAT 97; BMI 37.8
--- NOTE | 2020-12-02 09:34 | RAD_ITS ---
STUDY: X-RAY CHEST REASON FOR EXAM: Female, 85 years old. cough TECHNIQUE: Single AP portable view of the chest. COMPARISON: None. FINDINGS: The lungs are clear and expanded. There is no demonstrated pleural abnormality. Normal size heart. Normal mediastinum and sukhjinder. Normal visualized pulmonary arteries. Normal visualized aortic arch and descending thoracic aorta. Normal visualized thoracic spine. Normal visualized ribs, clavicles, and shoulders. There is no demonstrated abnormality of the visualized soft tissue structures of the upper abdomen. RAD/Chest 1 View (Portable) IMPRESSION: Normal x-ray examination of the chest. Electronically Signed: Nic Peterson MD at 10:32 EDT Tel , Service support ,
[2020-12-02 09:58] VITALS: BP 165/70; PULSE 79; RESP 15; TEMP 36.4; O2SAT 95
[2020-12-02 10:00] LABS: Absolute Lymphocyte Count 0.71 X10^3/uL (0.83-4.51); Absolute Neutrophil Count 9.1 X10^3/uL (2.0-7.7); Basophil# 0.03 X10^3/uL; Basophil% 0.3 % (0-1); Eosinophil# 0.06 X10^3/uL; Eosinophils% 0.5 % (0-5); Hematocrit 37.1 % (37-47); Hemoglobin 12.1 g/dL (12.0-15.0); Lymphocyte # 0.71 X10^3/ul (0.83-4.51); Lymphocyte % 6.3 % (19-41); Mean Corp Hgb Conc 32.6 g/dL (32-36); Mean Corpuscular Hgb 27.8 pg (27.0-32.0); Mean Corpuscular Volume 85.3 fL (81-99); Mean Platelet Vol. 9.3 fl (6.2-12.0); Monocyte% 11.6 % (0-10); NRBC Flagged by Analyzer 0 % (0-5); Neutrophil # 9.09 X10^3/uL (2.7-7.7); Neutrophil % 80.9 % (47-70); Platelet Count 322 K/mm3 (150-450); RBC Distribution Width CV 15.5 % (11.6-14.6); RBC Distribution Width SD 48.9 fl (35.1-43.9); Red Blood Count 4.35 M/mm3 (4.2-5.4); White Blood Count 11.2 K/mm3 (4.4-11.0)
[2020-12-02 10:14] LABS: Anion Gap 8 (5-15); BUN 17 mg/dL (7-18); Calcium,Total 9.5 mg/dL (8.5-10.1); Chloride 94 mmol/L (98-107); Creatinine, Serum 0.94 mg/dL (0.55-1.02); EST Glomerular Filtration Rate 60 mL/min (>60); Est Glom Filt Rate - Afr Amer 73 mL/min (>60); Estimated Creatinine Clearance 32.57 ml/min; Glucose 216 mg/dL (74-106); Magnesium 1.7 mg/dL (1.6-2.6); Potassium 3.1 mmol/L (3.5-5.1); Sodium Level 133 mmol/L (136-145)
[2020-12-02] MEDS: Morphine 2 MG/ML Syringe IV (10:36)
[2020-12-02] MEDS: Orphenadrine 60 MG/2 ML Ampul IV (10:37)
[2020-12-02] MEDS: Ondansetron 4 MG/2 ML Vial IV (10:37)
[2020-12-02 10:42] VITALS: BP 168/97; PULSE 95; RESP 23; TEMP 36.4; O2SAT 96
[2020-12-02 11:37] VITALS: BP 128/80; PULSE 93; RESP 20; O2SAT 96
--- NOTE | 2020-12-02 12:36 | EX.ED.DYSGE1 ---
HPI History of Present Illness Chief Complaint: Nausea/Vomiting Narrative Narrative: Patient is an 85-year-old female who states for the past week she has had nasal congestion and cough with fatigue. She states she was seen by her family doctor and told her lungs were clear. She states that today she feels like her symptoms have progressed and she does have concerned that she may have developed Covid despite being fully vaccinated and therefore was brought in for evaluation. [facility] Medical History Acute right hip pain Anemia Atrial fibrillation Chronic renal failure, stage 3 (moderate) Fall from motorized mobility scooter Fibromyalgia History of right hip replacement History of skin cancer Hypertension Nonrheumatic aortic (valve) stenosis Open wound of right hip and thigh with complication Osteoarthritis Skin necrosis Traumatic hematoma Traumatic hematoma of right hip Venous insufficiency of both lower extremities Vitamin D deficiency Home Medications acetaminophen [Tylenol Extra Strength] 1,000 mg PO TID 09/12/20 [History Last Taken Unknown] amlodipine 10 mg PO DAILY 09/12/20 [History Last Taken Unknown] atorvastatin 40 mg PO DAILY 09/12/20 [History Last Taken Unknown] cholecalciferol (vitamin D3) [Vitamin D3] 50 mcg PO DAILY 09/12/20 [History Last Taken Unknown] furosemide 40 mg PO DAILY 09/12/20 [History Last Taken Unknown] pantoprazole [Protonix] 40 mg PO DAILY 09/12/20 [History Last Taken Unknown] ranolazine [Ranexa] 500 mg PO BID 09/12/20 [History Last Taken Unknown] valsartan 80 mg PO DAILY 09/12/20 [History Last Taken Unknown] Eliquis 2.5 mg PO BID #0 tab 09/18/20 [Rx Last Taken Unknown] ferrous sulfate [Iron (ferrous sulfate)] 325 mg PO BID 09/18/20 [History Last Taken Unknown] melatonin 3 mg PO QHS PRN PRN #0 tab 09/18/20 [Rx Last Taken Unknown] nystatin [Nyamyc] 1 applic TOPICAL TID 09/18/20 [History Last Taken Unknown] potassium chloride 20 meq PO BID #0 cap 09/18/20 [Rx Last Taken Unknown] [id number] [Nabil (with collagen)] 1 ea PO BIDCM 30 Days #60 ea 10/01/20 [Rx Last Taken Unknown] loratadine [Allergy Relief (loratadine)] 10 mg PO DAILY #0 tab 10/01/20 [Rx Last Taken Unknown] menthol-zinc oxide [Calmoseptine] 1 applic TOPICAL BID #0 g 10/01/20 [Rx Last Taken Unknown] oxycodone 5 mg PO Q4H PRN PRN 7 Days #42 tab 10/01/20 [Rx Last Taken Unknown] polyethylene glycol 3350 17 g PO DAILY 30 Days #30 ea 10/01/20 [Rx Last Taken Unknown] sennosides-docusate sodium [Stool Softener-Stimulant Laxat] 2 tab PO BID 30 Days #120 tab 10/01/20 [Rx Last Taken Unknown] benzonatate [Tessalon Perles] 100 mg PO TID PRN #30 cap 12/02/20 [Rx Last Taken Unknown] methocarbamol 500 mg PO Q6H PRN 10 Days #40 tab 12/02/20 [Rx Last Taken Unknown] ondansetron HCl [Zofran] 4 mg PO Q8H PRN #21 tab 12/02/20 [Rx Last Taken Unknown] Allergy/AdvReac Type Severity Reaction Status Date / Time No Known Allergies Allergy Verified 12/02/20 09:16 Surgical History History of hemiarthroplasty of right hip Hx of appendectomy Hx of cardiac catheterization Hx of hysterectomy Social History Smoking Status: Never smoker ROS ROS ED Constitutional Constitutional ED: Denies chills or fever(s) ENT ENT ED: Reports rhinorrhea and sore throat Cardiovascular Cardiovascular: Denies chest pain Respiratory/Chest Respiratory/Chest: Reports cough; Denies dyspnea Gastrointestinal Gastrointestinal: Reports nausea and vomiting; Denies abdominal pain or diarrhea Genitourinary Genitourinary ED: Denies dysuria Musculoskeletal Musculoskeletal: Denies myalgias Integumentary Denies rash Neurologic Neurologic: Reports weakness; Denies headache(s) Hematologic/Lymphatic Hematologic/Lymphatic: Denies easy bleeding or easy bruising EXAM Physical Exam Const Vital Signs: 12/02/20 09:14 12/02/20 09:51 12/02/20 09:58 Temperature 97.6 F L 97.6 F L Temperature Source Temporal Temporal Pulse Rate 77 79 Respiratory Rate 18 15 Respiratory Effort Short of Breath Respiratory Pattern Normal Blood Pressure 165/70 H 165/70 H Blood Pressure Mean 101 101 Pulse Ox 97 95 Oxygen Delivery Method Room Air Room Air 12/02/20 10:42 12/02/20 11:37 Temperature 97.6 F L Temperature Source Oral Pulse Rate 95 93 Respiratory Rate 23 H 20 H Respiratory Effort Respiratory Pattern Blood Pressure 168/97 H 128/80 H Blood Pressure Mean 120 96 Pulse Ox 96 96 Oxygen Delivery Method Room Air Room Air Positive well nourished and well developed General Appearance ED: well developed HEENT Reports moist mucous membranes HEENT Narrative: Cobblestoning the posterior pharynx consistent with sinus drainage but no airway edema or compromise Eyes PERRL and EOMs intact bilaterally Neck supple Neck Narrative: Positive anterior cervical lymphadenopathy noted Chest Wall palpation of chest normal Resp normal respiratory effort Resp Narrative: Breath sounds are slight diminished throughout with faint expiratory wheeze in the bilateral bases but no signs of respiratory distress Cardio regular rate and regular rhythm Rate: other Other Details: Radial pulses are plus 2 out of 4 bilaterally are equal and symmetric GI normal to inspection, nondistended, normoactive bowel sounds, non-tender and non-distended GI Narrative: No voluntary guarding or rigidity no pulsatile mass Auscultation: normoactive bowel sounds Palpation: soft Extremity normal to inspection Extremity Narrative: No asymmetric edema no pitting edema negative Homans' sign bilaterally Neuro oriented x3 and CN's II-XII intact bilaterally Sensorium / Orientation: alert Psych mental status grossly normal Skin no rashes or lesions noted MDM MDM MDM Narrative Medical decision making narrative: Patient presented to the ER afebrile and in no acute respiratory distress with a normal room air pulse ox. Her constellation of symptoms of congestion and cough as well as myalgias are consistent with a viral syndrome. With concern this could be breakthrough Covid I did like to perform a rapid swab. Covid swab was negative and chest x-ray revealed no obvious infiltrate. The remainder the labs showed no clinically significant finding. At this time I feel she most likely has a other viral illness from her exposure to grandkids who she states of also had nasal congestion and mild cough. However as she does not have signs of respiratory distress or need for supplemental oxygen she is safe for discharge Lab Data Attestation: I reviewed the patient's lab results. Labs: Laboratory Results - last 24 hr 12/02/20 12/02/20 09:52 09:52 WBC 11.2 H RBC 4.35 Hgb 12.1 Hct 37.1 MCV 85.3 MCH 27.8 MCHC 32.6 RDW Std Deviation 48.9 H RDW Coeff of Mily 15.5 H Plt Count 322 MPV 9.3 Immature Gran % (Auto) 0.400 Neut % (Auto) 80.9 H Lymph % (Auto) 6.3 L [place] % (Auto) 11.6 H Eos % (Auto) 0.5 Baso % (Auto) 0.3 Absolute Neuts (auto) 9.1 H Absolute Lymphs (auto) 0.71 L Nucleated RBC % 0 Sodium 133 L Potassium 3.1 L Chloride 94 L Carbon Dioxide 31.0 Anion Gap 8 BUN 17 Creatinine 0.94 Estim Creat Clear Calc 32.57 Est GFR (MDRD) Af Amer 73 Est GFR (MDRD) Non-Af 60 BUN/Creatinine Ratio 18.0 Glucose 216 H Calcium 9.5 Magnesium 1.7 Radiography Diagnostic Testing: Radiology Impression Chest X-Ray 12/02/20 09:34 IMPRESSION: Normal x-ray examination of the chest. Electronically Signed: Nic Peterson MD at 10:32 EDT Tel , Service support , Discharge Plan Triage Chief Complaint: Nausea/Vomiting ED Provider: Rafael Skelton Dx/Rx/DC Orders Clinical Impression: Viral illness Instructions: ED URI, Viral, No Abx (Adult) Prescriptions: New methocarbamol 500 mg tablet 500 mg PO Q6H PRN (Reason: Muscle pain/spasm) 10 Days Qty: 40 RF: 0 benzonatate [Tessalon Perles] 100 mg capsule 100 mg PO TID PRN (Reason: cough) Qty: 30 RF: 0 ondansetron HCl [Zofran] 4 mg tablet 4 mg PO Q8H PRN (Reason: nausea and vomiting) Qty: 21 RF: 0 No Action acetaminophen [Tylenol Extra Strength] 500 mg Tablet 1,000 mg PO TID RF: 0 amlodipine 10 mg Tablet 10 mg PO DAILY RF: 0 pantoprazole [Protonix] 40 mg Tablet,Delayed Release (Dr/Ec) 40 mg PO DAILY RF: 0 ranolazine [Ranexa] 500 mg Tablet Extended Release 12 Hr 500 mg PO BID RF: 0 furosemide 40 mg Tablet 40 mg PO DAILY RF: 0 atorvastatin 40 mg Tablet 40 mg PO DAILY RF: 0 valsartan 80 mg Tablet 80 mg PO DAILY RF: 0 cholecalciferol (vitamin D3) [Vitamin D3] 50 mcg (2,000 unit) Capsule 50 mcg PO DAILY RF: 0 melatonin 3 mg Tablet 3 mg PO QHS PRN PRN (Reason: Insomnia) Qty: 0 RF: 0 potassium chloride 10 mEq Capsule, Extended Release 20 meq PO BID Qty: 0 RF: 0 Eliquis 5 mg Tablet 2.5 mg PO BID Qty: 0 RF: 0 ferrous sulfate [Iron (ferrous sulfate)] 325 mg (65 mg iron) tablet 325 mg PO BID RF: 0 nystatin [Nyamyc] 100,000 unit/gram powder 1 applic topical TID RF: 0 oxycodone 5 mg Tablet 5 mg PO Q4H PRN PRN (Reason: Pain Score 4-10) 7 Days Qty: 42 RF: 0 Nabil (with collagen) 7-7-1.5 gram Powder In Packet 1 ea PO BIDCM 30 Days Qty: 60 RF: 0 loratadine [Allergy Relief (loratadine)] 10 mg Tablet 10 mg PO DAILY Qty: 0 RF: 0 menthol-zinc oxide [Calmoseptine] 0.44-20.6 % Ointment 1 applic topical BID Qty: 0 RF: 0 polyethylene glycol 3350 17 gram Powder In Packet 17 g PO DAILY 30 Days Qty: 30 RF: 0 sennosides-docusate sodium [Stool Softener-Stimulant Laxat] 8.6-50 mg Tablet 2 tab PO BID 30 Days Qty: 120 RF: 0 Primary Care Provider: Herson Zuniga Referrals: Herson Zuniga DO [Primary Care Provider] - Disposition Disposition: Home, Self Care
[2020-12-02 13:00] VITALS: BP 178/75; PULSE 93; RESP 18; O2SAT 95
== END 2020-12-02 13:11 | disposition home or self-care (01) ==
PROVIDERS: Emergency Provider Emergency Medicine; PCP Student in an Organized Health Care Education/Training Program
DX: B34.9 Viral infection, unspecified (principal); R11.2 Nausea with vomiting, unspecified; Z20.822 Contact with and (suspected) exposure to COVID-19; I12.9 Hypertensive chronic kidney disease with stage 1 through stage 4 chronic kidney disease, or unspecified chronic kidney disease; N18.30 Chronic kidney disease, stage 3 unspecified; I35.0 Nonrheumatic aortic (valve) stenosis; I48.91 Unspecified atrial fibrillation; D64.9 Anemia, unspecified; M19.90 Unspecified osteoarthritis, unspecified site; Z79.01 Long term (current) use of anticoagulants; Z79.899 Other long term (current) drug therapy; Z96.641 Presence of right artificial hip joint
CPT/HCPCS: 71045; 80048; 83735; 85025; 87426; 96361; 96374; 96375; 99282; J7040; A4216; J2405

== ENCOUNTER 2020-12-07 11:00 | Outpatient (RCR) | payer MEDICARE, SELFPAY ==
[2020-12-07 00:08] VITALS: BP 160/80; PULSE 68; RESP 18; TEMP 36.2; BMI 39.5
[2020-12-07 11:46] VITALS: BP 138/63; PULSE 62; TEMP 35.7; BMI 39.5
== END 2020-12-26 10:03 | disposition home or self-care (01) ==
LOC: WC 11:00
PROVIDERS: PCP Student in an Organized Health Care Education/Training Program; Visit Provider Nurse Practitioner Family
DX: Z09 Encounter for follow-up examination after completed treatment for conditions other than malignant neoplasm (principal)
CPT/HCPCS: 99213; G0463